=== PATIENT | male | born 1940 | race Caucasian/White ===

== ENCOUNTER 2024-09-06 13:42 | Emergency (ER) | payer OTHER, SELFPAY ==
[2024-09-06 14:23] VITALS: BP 104/60; PULSE 81; RESP 14; TEMP 36.1; O2SAT 100; BMI 25.8
--- NOTE | 2024-09-06 14:43 | PD.EDANKLE ---
Lower Extremity Injury RME/HPI General Chief Complaint: Ankle/Foot Injury Stated Complaint: BILAT FOOT PAIN X 5 DAYS Time Seen by Provider: 09/06/24 14:15 Arrival date/time: 09/06/24 13:42 84-year-old male reports with complaints of right foot pain x 4 to 5 days. Patient states that he was seen by another provider at some point prescribed medications but he is uncertain of what they are. Patient denies any injury to the foot and states that he is not certain of why the pain began he denies numbness or tingling decreased range of motion or weakness of the foot. Patient states it is simply hurts with walking. Limitations: no limitations Related Data Home Medications ?Medication ?Instructions ?Recorded ?Confirmed omeprazole 20 mg capsule,delayed 20 mg PO QDAY 09/07/19 05/30/24 release oxybutynin chloride 5 mg tablet 5 mg PO HS 07/14/23 05/30/24 tamsulosin 0.4 mg capsule 0.4 mg PO QDAY 07/14/23 05/30/24 vitamin B complex-vitamin C-folic 1 tab PO QDAY 07/14/23 05/31/24 acid 0.8 mg tablet (Kayley-Charley) amlodipine 5 mg tablet 5 mg PO QDAY 05/30/24 05/30/24 donepezil 10 mg tablet 10 mg PO HS 05/30/24 05/30/24 levocetirizine 5 mg tablet 5 mg PO QPM 05/30/24 05/30/24 Allergies Allergy/AdvReac Type Severity Reaction Status Date / Time clonidine Allergy Intermediate Rash Verified 09/06/24 13:51 Penicillins Allergy Intermediate Rash Verified 09/06/24 13:51 Sulfa (Sulfonamide Allergy Mild Itching Verified 09/06/24 13:51 Antibiotics) Review of Systems Constitutional Constitutional: Denies chills and Denies fever(s) Musculoskeletal Musculoskeletal: Reports arthralgias, Denies deformity, Denies joint swelling, Denies numbness and Denies tingling Integumentary/Breasts Skin/Breast: Reports sores and Denies skin swelling Neurologic Neurologic: Denies numbness and Denies tingling Past Medical History Past Medical History NEUROLOGIC: Positive Transient Ischemic Attacks (TIA), Dementia and Head Trauma; Negative Neurological Disorders or Seizures CARDIAC: Positive Cardiac Disorders, Coronary Artery Disease (s/p stent placement 2021), Hypercholesterolemia, Congestive Heart Failure (HFpEF 65-70%), Edema and Hypertension RESPIRATORY: Positive Asthma and Pneumonia; Negative Chronic Obstructive Pulmonary Disease (COPD), Tuberculosis or Sleep Apnea GASTROINTESTINAL: Positive Gastrointestinal Disorders, Esophageal Varices and Gastroesophageal Reflux Disease GENITOURINARY: Positive Benign Prostatic Hyperplasia; Negative Genitourinary Disorders or Renal Disease MUSCULOSKELETAL: Positive Musculoskeletal Disorders, Arthritis and Fractures ENT: Positive Cataracts, Deafness (hard of hearing) and Head Trauma ENDOCRINE: Negative Endocrine Disorders, Diabetes Mellitus Type 1 or Diabetes Mellitus Type 2 HEMATOLOGIC: Negative Blood Disorders OTHER HISTORY: Positive Falls, Chicken Pox, Mumps and Cancer; Negative Hospitalization, Autoimmune Disease, Shingles, Blood Transfusions, Blood Transfusion Reaction, Anesthesia Reactions, Chemotherapy, Radiation Therapy or MRSA Family History FAMILY HISTORY: Positive Family Cardiac Disorders and Family Surgery; Negative Family Psychiatric Problems, Family Respiratory Disorders, Family Gastrointestinal Problems, Family Cancer or Family Anesthesia Reaction Surgical History SURGICAL: Positive Cardiac Surgery, Cardiac Catheterization, Angiogram, Tonsillectomy, Abdominal Surgery and Joint Replacement Social History SMOKING STATUS: Never smoker SECOND HAND EXPOSURE: No SUBSTANCE USE: does not use ED Exam General Limitations: Present no limitations General appearance: Present alert and in no apparent distress Extremities Exam Extremities exam: Present normal inspection and full ROM Expanded Lower Extremity Exam Ankle exam: Present normal inspection and full ROM; Absent tenderness or swelling Foot/toe exam: Present full ROM and other (right foot with scattered abraisons on dorsal and plantar aspects, no d/c FROM, pulses/ reflexes 2+, sensory intact, unable to weight bear); Absent tenderness Neurological Exam Neurological exam: Present alert, oriented X3 and CN II-XII intact Psychiatric Psychiatric exam: Present normal affect and normal mood Skin Skin exam: Present warm, dry, intact and normal color Course Course Course Narrative: 84-year-old male reports with complaints of foot pain. Patient is a normal foot exam he is refusing the x-ray at this time differential diagnosis includes foot sprain foot fracture neuropathy. Patient is stable nontoxic-appearing with stable vital signs he will be discharged and referred to his primary care provider for further evaluation Quality Measures none Orders Category Date Time Status XR foot comp RT min 3V Stat Exams 09/06/24 14:43 Ordered Vital Signs Vital signs: Vital Signs Temperature 97.0 F 09/06/24 14:23 Pulse Rate 81 09/06/24 14:23 Respiratory Rate 14 09/06/24 14:23 Blood Pressure 104/60 09/06/24 14:23 Pulse Oximetry (%) 100 09/06/24 14:23 Oxygen Delivery Method Room Air 09/06/24 14:23 Extremity Injury, Lower Patient data External records reviewed:: None Clinical information provided by:: patient Social determinants that could affect healthcare access:: none Patient has the following chronic illnesses:: CHF, renal insufficiency How is presenting disease/condition affected by chronic disease/condition?: uneffected by Evaluation data The following diagnostics were reviewed and interpreted by me:: other (specify) (None) Lab and/or radiology exams considered but not ordered:: n/a Interpretation Summary: n/a Medications / Prescriptions Medications or Prescriptions considered but not ordered:: n/a Medication administrations:: n/a Consultations Consultation(s) initiated? (list below): No Diagnosis Most likely diagnosis given after review of the tests above:: right foot pain Admission Indicated Admission indicated?: not indicated Admission Request Was there a request for admission?: No Disposition Plan Disposition Plan: Discharge Discharge Attestation Discharge Attestation: The patient and all family members were given an opportunity to ask questions and understood the discharge instructions. Discharge instructions specifically effects, indications for sooner follow up or return to the emergency department, and the expected course of current diagnosis. Patient condition: Stable Discharge Plan Plan Patient Disposition: HOME (Self Care) Prescriptions/Referrals Prescriptions/Med Rec: No Action omeprazole 20 mg Capsule,Delayed Release(Dr/Ec) 20 mg PO QDAY donepezil 10 mg Tablet 10 mg PO HS amlodipine 5 mg Tablet 5 mg PO QDAY levocetirizine 5 mg Tablet 5 mg PO QPM tamsulosin 0.4 mg Capsule 0.4 mg PO QDAY Kayley-Charley 0.8 mg Tablet 1 tab PO QDAY oxybutynin chloride 5 mg Tablet 5 mg PO HS Referrals: No Primary/Family,Physician [Primary Care Provider] - In 1 week Problem List Clinical Impression: Acute pain of right foot Patient/Caregiver Discharge Instructions Discharge Activity: activity as tolerated Education Materials: ED Myalgias Additional Instructions: Follow-up with your primary care provider for further evaluation and treatment of your foot pain. you can take medications such as Tylenol for pain. Print Language: Luxembourgish Stand Alone Forms: [facility]stance Award Info., Patient Portal Info Letter Attestation MD Attestation The patient was seen by the midlevel practitioner. I, the co-signing physician, was present during the entire ER visit. While I did not physically examine the patient, I was available for consultation as needed.
--- NOTE | 2024-09-06 17:01 | PC.CC ---
Addendum entered by Brian Dick II 09/06/24 17:05: [employer] went looking for pt in ED lobby, pt not located. [employer] CC looked for pt in ED restrooms and outside of ED entrance, pt was not located. Original Note: [employer] CC engaged to help arrange transport for pt back to his residence at [address] [employer] CC initially attempted to arrange [employer] transport, with pts address not being found in system and out of catchment area. [employer] CC attempted to make contact with [facility] on 4 separate phone calls. [employer] CC unable to make contact or leave voice message.
== END 2024-09-06 15:37 | disposition home or self-care (01) ==
PROVIDERS: Emergency Provider Emergency Medicine
DX: M79.671 Pain in right foot (principal)
CPT/HCPCS: 99283

== ENCOUNTER 2024-09-13 11:04 | Inpatient (IN) | payer OTHER, MEDICARE, SELFPAY ==
[2024-09-13] VITALS (7 sets, daily range): BP systolic 96–166; BP diastolic 43–83; PULSE 61–101; RESP 12–21; TEMP 36.1–36.8; O2SAT 95–98; BMI 25.1
--- NOTE | 2024-09-13 11:18 | PC.NURSE ---
Pt was BIBA for generalized weakness. Pt states he is falling more often most recent fall being yesterday. Per EMS pt had a recent diagnosis of dementia/Alzheimer. Pt is a GCS 15, A&O x4. Arms appear discolored and have multiple skin tears.
--- NOTE | 2024-09-13 12:41 | EKG_ITS ---
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: : 1940 Requested By: Hugh Corona Order Number: [id number] Reading MD: Hugh Corona Measurements Intervals [place] Rate: 75 P: -56 [place]: 153 QRS: -69 QRSD: 166 T: 67 QT: 459 QTc: 516 Interpretive Statements ECTOPIC ATRIAL RHYTHM WITH OCCASIONAL SUPRAVENTRICULAR PREMATURE COMPLEXES POSSIBLE LEFT ATRIAL ENLARGEMENT [-0.1mV P WAVE IN V1/V2] RIGHT BUNDLE BRANCH BLOCK [120+ ms QRS DURATION, UPRIGHT V1, 40+ ms S IN I/aVL/V4/V5/V6] LEFT ANTERIOR FASCICULAR BLOCK [QRS AXIS <= -45, QR IN I, RS IN II] Compared to ECG 05/30/2024 20:44:45 Ectopic atrial rhythm now present Right bundle-branch block now present Left anterior fascicular block now present Sinus rhythm no longer present Left ventricular hypertrophy no longer present ST (T wave) deviation no longer present Myocardial infarct finding no longer present /store/S0/[id number]/ecg/[id number].pdf
--- NOTE | 2024-09-13 12:41 | XR_ITS ---
Examination: AP chest single view Technique one AP portable semiupright chest single view Exam date and time: September 13, 2024 1256 hours Comparison May 28, 2024 INDICATIONS: Shortness of breath after falling today. FINDINGS: Normal heart size. No pneumothorax Prominent osteopenia Clavicles and ribs appear intact IMPRESSION: No pneumothorax pulmonary contusion or hemothorax
--- NOTE | 2024-09-13 12:41 | XR_ITS ---
Examination: CT cervical spine without contrast 2-D sagittal reconstructions 2-D coronal reconstructions 3-D reconstructions. Exam date and time:September 13, 2024 1320 hours INDICATIONS: Patient fell yesterday with injury to the neck, neck pain CTDI:vol (mGy) 8.37 DLP: (mGycm) 200 Technique: Multiple 2 mm axial sections of the cervical spine have been obtained. The coronal and sagittal reconstructions have been obtained. 3-D reconstructions have been obtained. Low dose protocols were performed. One or more of the following dose reduction techniques were used; automated exposure control, adjustment of the mA and/or KV according to patient size, use of iterative reconstruction technique. Findings: Axial sections demonstrate intact base of the skull. C1 exhibit satisfactory relationship to the odontoid. No acute cervical vertebral body fracture seen. Alignment posterior spinous processes satisfactory. Impression: No acute cervical fracture. Very heavy carotid vascular calcification including left carotid artery stent, consider correlation with carotid Doppler sonography follow-up
--- NOTE | 2024-09-13 12:41 | XR_ITS ---
Examination: CT brain head without contrast. 2-D sagittal coronal reconstructions Date and time of exam:April 13, 2024 1320 hours INDICATIONS: Patient fell today with injury to the head, head pain, history CVA COMPARISON: November 22, 2023 CTDI: vol (mGy):53.0 DLP: (mGycm):1194 Technique: Multiple CT axial sections of the brain have been obtained, 5 mm slice thickness. Contrast has not been administered. 2-D sagittal, coronal reconstructions have been obtained Low dose protocols were performed. One or more of the following dose reduction techniques were used; automated exposure control, adjustment of the mA and/or KV according to patient size, use of iterative reconstruction technique. Findings: No significant ventricular enlargement. Intra-axial or extra-axial hemorrhage density is not seen. No mass effect or midline shift Basal cisterns are not remarkable. Prominent left maxillary sinusitis Small old infarct left basal ganglia Fourth ventricle is midline. Cranial vault intact. Impression: Negative for acute hemorrhage, mass effect or midline shift
--- NOTE | 2024-09-13 12:45 | PD.EDADULT ---
ED General RME/HPI General Chief complaint: Weakness Stated complaint: WEAKNESS Time Seen by Provider: 09/13/24 11:12 Arrival date/time: 09/13/24 11:04 CC: Generalized weakness x 4 to 5 days resulting in 2 falls yesterday. Patient denies headache shortness of breath or difficulty breathing. Patient states he has not been compliant with his medications secondary to his general weakness for several days. No other specific complaints. Related Data Home Medications ?Medication ?Instructions ?Recorded ?Confirmed omeprazole 20 mg capsule,delayed 20 mg PO QDAY 09/07/19 05/30/24 release oxybutynin chloride 5 mg tablet 5 mg PO HS 07/14/23 05/30/24 tamsulosin 0.4 mg capsule 0.4 mg PO QDAY 07/14/23 05/30/24 vitamin B complex-vitamin C-folic 1 tab PO QDAY 07/14/23 05/31/24 acid 0.8 mg tablet (Kayley-Charley) amlodipine 5 mg tablet 5 mg PO QDAY 05/30/24 05/30/24 donepezil 10 mg tablet 10 mg PO HS 05/30/24 05/30/24 levocetirizine 5 mg tablet 5 mg PO QPM 05/30/24 05/30/24 Allergies Allergy/AdvReac Type Severity Reaction Status Date / Time clonidine Allergy Intermediate Rash Verified 09/06/24 13:51 Penicillins Allergy Intermediate Rash Verified 09/06/24 13:51 Sulfa (Sulfonamide Allergy Mild Itching Verified 09/06/24 13:51 Antibiotics) Review of Systems Review of Systems Narrative Review of Systems: GEN: No fever, no chills, no weight loss EYES: No discharge, no visual changes, no pain HEENT: No ear pain, no congestion, no sore throat PULM: No shortness of breath, no cough, no congestion CV: No chest pain, no dyspnea on exertion, no palpitations GI: No nausea, no vomiting, no diarrhea, no pain, no constipation : No frequency, no urgency, no dysuria MUSC/SKEL: No joint pain, no back pain SKIN: No rash PSYCH: No hallucinations, no depression HEME/LYMPH: No easy bleeding or bruising tendencies NEURO: + weakness, no headache Past Medical History Past Medical History NEUROLOGIC: Positive Transient Ischemic Attacks (TIA), Dementia and Head Trauma; Negative Neurological Disorders or Seizures CARDIAC: Positive Cardiac Disorders, Coronary Artery Disease (s/p stent placement 2020), Hypercholesterolemia, Congestive Heart Failure (HFpEF 65-70%), Edema and Hypertension RESPIRATORY: Positive Asthma and Pneumonia; Negative Chronic Obstructive Pulmonary Disease (COPD), Tuberculosis or Sleep Apnea GASTROINTESTINAL: Positive Gastrointestinal Disorders, Esophageal Varices and Gastroesophageal Reflux Disease GENITOURINARY: Positive Benign Prostatic Hyperplasia; Negative Genitourinary Disorders or Renal Disease MUSCULOSKELETAL: Positive Musculoskeletal Disorders, Arthritis and Fractures ENT: Positive Cataracts, Deafness (hard of hearing) and Head Trauma ENDOCRINE: Negative Endocrine Disorders, Diabetes Mellitus Type 1 or Diabetes Mellitus Type 2 HEMATOLOGIC: Negative Blood Disorders OTHER HISTORY: Positive Falls, Chicken Pox, Mumps and Cancer; Negative Hospitalization, Autoimmune Disease, Shingles, Blood Transfusions, Blood Transfusion Reaction, Anesthesia Reactions, Chemotherapy, Radiation Therapy or MRSA Family History FAMILY HISTORY: Positive Family Cardiac Disorders and Family Surgery; Negative Family Psychiatric Problems, Family Respiratory Disorders, Family Gastrointestinal Problems, Family Cancer or Family Anesthesia Reaction Surgical History SURGICAL: Positive Cardiac Surgery, Cardiac Catheterization, Angiogram, Tonsillectomy, Abdominal Surgery and Joint Replacement Social History SMOKING STATUS: Never smoker SECOND HAND EXPOSURE: No SUBSTANCE USE: does not use ED Exam Narrative Physical exam: [General: Thin but not emaciated, appears not in any acute distress Head normocephalic, no step-offs hematomas abrasions ulcerations or depressions. HEENT: Eyes: Left pupil is pinpoint right pupil is 1 to 2 mm reflexive to light. All other subsystems of HEENT are within acceptable limits Neck is supple nontender Chest equal chest rise nontender to palpation Respiratory: Clear to auscultation no wheezes crackles or rubs CV: Rate rhythm is regular no murmurs rubs or clicks Abdomen is soft nontender no masses positive bowel sounds all 4 quadrants Back: No CVA tenderness no spinous process tenderness from cervical spine thoracic and lumbar spine Skin: 6 x 12 skin tear on the right lateral arm, very small partial-thickness abrasion to the top of the scalp. Intact no petechiae rash induration ulceration or crepitus Extremities: Moving all extremity against resistance cap refill less than 2 seconds neurosensory intact Neuro: Awake alert oriented x2, person and place, Glascow coma 15 no focal deficits] Course Course Course Narrative: Patient's case and laboratory results discussed with resident for Dr. Sinha attending who agrees to accept the patient for admission for worsening MORIAH weakness and recurrent falls. Quality Measures none Orders Category Date Time Status Bedside COVID-19 Antigen Test NOW Care 09/13/24 12:42 Active Bedside Influenza A&B Antigen Test NOW Care 09/13/24 12:42 Completed EKG (ED ONLY) *Do not use* NOW Care 09/13/24 12:41 Completed Miscellaneous Nursing Order NOW Care 09/13/24 14:21 Active Consult to Nephrology Stat Cons 09/13/24 14:[address] cervical spine wo con Stat Exams 09/13/24 12:[address] head/brain wo con Stat Exams 09/13/24 12:41 Completed EKG (ED Only) Stat Exams 09/13/24 12:41 Draft US renal BI Stat Exams 09/13/24 14:11 Completed XR chest 1V Stat Exams 09/13/24 12:41 Completed B-Type Natriuretic Peptide Stat Lab 09/13/24 12:55 Completed CBC Stat Lab 09/13/24 12:55 Completed Comprehensive Metabolic Panel Stat Lab 09/13/24 12:55 Completed Creatine Kinase Routine Lab 09/13/24 15:02 Completed Drug Screen,Urine Stat Lab 09/13/24 12:41 Ordered LDH (Lactate Dehydrogenase) Stat Lab 09/13/24 12:55 Completed Lactate (Lactic Acid) Routine Lab 09/13/24 15:02 Completed Magnesium Stat Lab 09/13/24 12:55 Completed Partial Thromboplastin Time Stat Lab 09/13/24 12:55 Completed Phosphorous Routine Lab 09/13/24 15:02 Completed Prothrombin Time with INR Stat Lab 09/13/24 12:55 Completed Troponin I Stat Lab 09/13/24 12:55 Completed Urinalysis Stat Lab 09/13/24 12:41 Ordered Pantoprazole [Protonix] Med 09/13/24 13:12 Discontinued 20 mg PO X1 ONE Sodium Chloride 0.9% 1000 ml [Ns] 1,000 ml Med 09/13/24 14:13 Discontinued IV 85 mls/hr Sodium Chloride 0.9% 1000 ml [Ns] 1,000 ml Med 09/13/24 14:12 Discontinued IV 999 mls/hr Tet,Diphth,Pertuss(Acell)-Tdap [Boostrix Vacc] Med 09/13/24 14:31 Discontinued 0.5 ml IMI .ONCE ONE Vital Signs Vital signs: Vital Signs Temperature 97.6 F 09/13/24 11:21 Pulse Rate 85 09/13/24 11:21 Respiratory Rate 18 09/13/24 11:21 Blood Pressure 142/73 H 09/13/24 11:21 Pulse Oximetry (%) 95 09/13/24 11:21 Oxygen Delivery Method Room Air 09/13/24 11:21 [facility] Patient data External records reviewed:: [facility] previous records and EMS form Clinical information provided by:: patient and EMS Social determinants that could affect healthcare access:: none Patient has the following chronic illnesses:: Past medical history of hypertension CKD stage IV orthopnea How is presenting disease/condition affected by chronic disease/condition?: uneffected by Evaluation data The following diagnostics were reviewed and interpreted by me:: lab results, radiology exam(s) and EKG tracing(s) Lab and/or radiology exams considered but not ordered:: Thank you EKG performed at 1329 shows an ectopic rhythm, right bundle branch block. The ventricular rate of 75 NC interval 153 QRS of 166 QTc of 488 CBC shows no significant leukocytosis stable anemia no thrombocytopenia CMP shows electrolyte imbalances with significant renal impairment BUN of [address] head and C-spine as interpreted by me read by radiology as negative for any acute finding. Interpretation Summary: Patient has significant worsening of his BUN and creatinine, was discussed with Dr. Huerta who is consulted on this patient with his last admission in May 2024 he agrees to consult on the patient and wants him admitted fluid hydration, and renal ultrasound. Medications Medications considered but not ordered:: None Medication administrations:: Medication Administration History Acetaminophen (Acetaminophen 325 Mg Tablet) 650 mg PO Q6H PRN PRN Reason: Fever >100.2 or pain Stop: 10/13/24 15:38 Enoxaparin Sodium (Enoxaparin Sod Inj 30 Mg/0.3 Ml Syringe) 30 mg SC QDAY DOMENICO; Protocol Stop: 09/28/24 08:59 Folic Acid (Folic Acid 1 Mg Tablet) 1 mg PO QDAY DOMENICO Stop: 10/14/24 08:59 Hydralazine HCl (Hydralazine Inj 20 Mg/Ml Vial) 10 mg IV Q2HR PRN PRN Reason: Hypertension Stop: 10/13/24 17:59 Dextrose/Sodium Chloride (D5-Ns) 1,000 mls @ 120 mls/hr IV .[id number] [facility] Stop: 09/14/24 17:14 Last Admin: 09/13/24 17:09 Dose: 120 mls/hr Documented By: MS Labetalol HCl (Labetalol Inj 5 Mg/Ml Vial 20 Ml) 10 mg IVP Q4HR PRN PRN Reason: SEE COMMENTS Stop: 10/13/24 17:59 Lorazepam (Lorazepam 2 Mg/Ml Vial) 1 mg IVP Q2H PRN PRN Reason: seizure Stop: 09/18/24 15:47 Nifedipine (Nifedipine 10 Mg Capsule) 10 mg PO TID [facility] Stop: 10/13/24 17:29 Last Admin: 09/13/24 17:54 Dose: 10 mg Documented By: MS Ondansetron HCl (Ondansetron Inj 2 Mg/Ml Inj 2 Ml) 4 mg IV Q6H PRN; Protocol PRN Reason: NAUSEA OR VOMITING Stop: 10/13/24 15:38 Pantoprazole Sodium (Pantoprazole Inj 40 Mg Vial) 40 mg IVP QDAY [facility] Stop: 10/14/24 08:59 Quetiapine Fumarate (Quetiapine Fumarate 25 Mg Tablet) 12.5 mg PO HS PRN PRN Reason: AGITATION Stop: 10/13/24 20:59 Thiamine HCl (Thiamine 100 Mg Tablet) 100 mg PO DAILY [facility] Stop: 10/14/24 08:59 Discontinued Medications Diphtheria/Tetanus/Acell Pertussis (Diphth,Pertuss(Acell),Tet Vac 0.5 Ml Vial) 0.5 ml IMi .ONCE ONE Stop: 09/13/24 14:32 Last Admin: 09/13/24 17:02 Dose: 0.5 ml Documented By: MS Folic Acid (Folic Acid Inj 1 Mg/0.2 Ml) 1 mg IVP X1 ONE Stop: 09/13/24 15:54 Last Admin: 09/13/24 17:04 Dose: 1 mg Documented By: MS Sodium Chloride (Ns) 1,000 mls @ 999 mls/hr IV .Q1H1M ONE Stop: 09/13/24 15:12 Last Admin: 09/13/24 17:01 Dose: 999 mls/hr Documented By: MS Sodium Chloride (Ns) 1,000 mls @ 85 mls/hr IV .[id number] [facility] Stop: 10/13/24 14:12 Last Admin: 09/13/24 17:22 Dose: Not Given Documented By: Non-Admin Reason: Cancelled by Provider Magnesium Sulfate (Magnesium Sulfate Ivpb) 4 gm in 50 mls @ 12.5 mls/hr IV X1 ONE Stop: 09/13/24 19:48 Last Admin: 09/13/24 17:54 Dose: 12.5 mls/hr Documented By: MS Thiamine HCl 100 mg/ Sodium (Chloride) 101 mls @ 202 mls/hr IV X1 ONE Stop: 09/13/24 16:24 Last Admin: 09/13/24 17:07 Dose: 202 mls/hr Documented By: MS Sodium Chloride (Ns) 1,000 mls @ 125 mls/hr IV .Q8H DOMENICO Stop: 09/14/24 16:00 Last Admin: 09/13/24 17:22 Dose: Not Given Documented By: Non-Admin Reason: Cancelled by Provider Pantoprazole Sodium (Pantoprazole 20 Mg Tablet) 20 mg PO X1 ONE Stop: 09/13/24 13:13 Last Admin: 09/13/24 13:43 Dose: 20 mg Documented By: Potassium Chloride (Potassium Chloride 20 Meq Tabcr) 40 meq PO X1 ONE Stop: 09/13/24 15:53 Last Admin: 09/13/24 17:02 Dose: 40 meq Documented By: None Consultations Consultation(s) initiated? (list below): No Diagnosis Differential Diagnosis ED Complaint MDM: CKD stage IV to acute renal failure dehydration Most likely diagnosis given after review of the tests above:: Dehydration MORIAH Admission Indicated Admission indicated?: indicated Explain why admission is indicated or not indicated:: Further medical management Admission Request Was there a request for admission?: No Disposition Plan Disposition Plan: Admit Medical Decision Making Differential Diagnosis Differential Diagnosis: CKD stage IV to acute renal failure dehydration Lab Data 09/13/24 12:55 09/13/24 12:55 Labs: Lab Results 09/13/24 09/13/24 Range/Units 12:55 15:02 WBC 11.0 H (3.8-10.6) Thou/mm3 RBC 3.54 L (4.50-5.90) Miln/mm3 Hgb 11.7 L (13.5-16.0) g/dL Hct 32.9 L (41.0-53.0) % MCV 93 (80-100) fL MCH 33.1 (25.0-35.0) pg MCHC 35.6 (31.0-37.0) g/dl RDW Std Deviation 43.9 (35.1-43.9) fL Plt Count 352 (140-440) Thou/mm3 Neut % (Auto) 78 (37-80) % Lymph % (Auto) 9 L (10-50) % Har[place]on % (Auto) 12 (0-12) % Eos % (Auto) 0 (0-10) % Baso % (Auto) 0 (0-2.5) % Neut # (Auto) 8.6 H (1.8-7.7) Thou/mm3 Lymph # (Auto) 1.0 (1.0-4.8) Thou/mm3 [place]on # (Auto) 1.3 H (0.0-0.8) Thou/mm3 Eos # (Auto) 0.0 (0.0-0.5) Thou/mm3 Baso # (Auto) 0.0 (0.0-0.2) Thou/mm3 Immature Gran # (Auto) 0.05 H (0.00-0.00) Thou/mm3 Absolute Nucleated RBC 0.00 (0.00-0.00) Thou/mm3 Immature Gran % 1 H (0-0) % Nucleated RBC % 0 (0) /100 WBC PT 11.8 (9.0-12.2) Seconds INR 1.1 (0.9-1.3) APTT 27.2 (22.0-36.0) Seconds Sodium 129 L (136-145) mMol/L Potassium 3.3 L (3.4-5.1) mMol/L Chloride 88 L (98-107) mMol/L Carbon Dioxide 21.0 (20.0-31.0) mMol/L Anion Gap 20 H (7-16) BUN 90 H (9-23) mg/dL Creatinine 6.4 H* (0.6-1.3) mg/dL Estim Creat Clear Calc 9.2 L (>60) mL/min eGFR 8 L* (60 - ) See Note BUN/Creatinine Ratio 14 (12-20) Ratio Glucose 101 (74-106) mg/dL Calculated Osmolality 286 (275-295) Lactic Acid 1.4 (0.4-2.0) mMol/L Calcium 9.4 (8.3-10.6) mg/dL Corrected Calcium 9.4 (8.5-10.1) mg/dL Phosphorus 6.6 H (2.4-5.1) mg/dL Magnesium 1.4 L (1.6-2.6) mg/dL Total Bilirubin 0.5 (0.3-1.2) mg/dL AST 22 (0-34) U/L ALT 10 (10-49) U/L Alkaline Phosphatase 118 H (46-116) U/L Lactate Dehydrogenase 132 (120-246) U/L Total Creatine Kinase 32 L (34-171) U/L Troponin I 0.025 (0.0-0.045) ng/mL B-Natriuretic Peptide 114 H (0-100) pg/mL Total Protein 6.9 (5.7-8.2) gm/dL Albumin 4.4 (3.4-4.8) gm/dL Globulin 2.5 (2.3-3.5) gm/dL Albumin/Globulin Ratio 1.8 (1.2-2.2) Discharge Plan Plan Patient Disposition: Admit Acute Care w/in Hospital Patient condition on transfer: Stable Problem List Clinical Impression: Renal failure, Weakness, Recurrent falls, Skin tear of elbow without complication PA/MARKETING DEVELOPMENT REPRESENTATIVE Supervising Physician PA/MARKETING DEVELOPMENT REPRESENTATIVE Supervising Physician: Hugh Page ENP
[2024-09-13 13:04] LABS: Basophils % (Auto) 0 % (0-2.5); Eosinophils % (Auto) 0 % (0-10); Hematocrit 32.9 % (41.0-53.0); Hemoglobin 11.7 g/dL (13.5-16.0); Immature Granulocytes % (Auto) 1 % (0-0); Immature Granulocytes Auto 0.05 Thou/mm3 (0.00-0.00); Lymphocytes % (Auto) 9 % (10-50); Mean Corpuscular HGB Conc 35.6 g/dl (31.0-37.0); Mean Corpuscular Hemoglobin 33.1 pg (25.0-35.0); Mean Corpuscular Volume 93 fL (80-100); Monocytes # (Auto) 1.3 Thou/mm3 (0.0-0.8); Monocytes % (Auto) 12 % (0-12); Neutrophils # (Auto) 8.6 Thou/mm3 (1.8-7.7); Neutrophils % (Auto) 78 % (37-80); Nucleated Red Blood Cell % 0 /100 WBC (0); Platelet Count 352 Thou/mm3 (140-440); RDW Standard Deviation 43.9 fL (35.1-43.9); Red Blood Count 3.54 Miln/mm3 (4.50-5.90)
[2024-09-13 13:20] LABS: Alanine Aminotransferase 10 U/L (10-49); Albumin, Serum 4.4 gm/dL (3.4-4.8); Albumin/Globulin Ratio 1.8 (1.2-2.2); Alkaline Phosphatase 118 U/L (46-116); Anion Gap 20 (7-16); Aspartate Amino Transferase 22 U/L (0-34); BUN/Creatinine Ratio 14 Ratio (12-20); Bilirubin,Total 0.5 mg/dL (0.3-1.2); Blood Urea Nitrogen 90 mg/dL (9-23); Calcium 9.4 mg/dL (8.3-10.6); Calcium (Corrected) 9.4 mg/dL (8.5-10.1); Chloride 88 mMol/L (98-107); Creatinine (Component) 6.4 mg/dL (0.6-1.3); Estimated Creatinine Clearance 9.2 mL/min (>60); Globulin 2.5 gm/dL (2.3-3.5); Glucose 101 mg/dL (74-106); INR 1.1 (0.9-1.3); LDH (Lactate Dehydrogenase) 132 U/L (120-246); Magnesium 1.4 mg/dL (1.6-2.6); Osmolality,Calculated 286 (275-295); Partial Thromboplastin Time 27.2 Seconds (22.0-36.0); Potassium 3.3 mMol/L (3.4-5.1); Prothrombin Time 11.8 Seconds (9.0-12.2); Sodium 129 mMol/L (136-145); Total Protein 6.9 gm/dL (5.7-8.2); Troponin I 0.025 ng/mL (0.0-0.045); eGFR 8 See Note
[2024-09-13] MEDS: PANTOPRAZOLE 20 MG TABLET PO (13:43)
[2024-09-13 13:47] LABS: B-Type Natriuretic Peptide 114 pg/mL (0-100)
--- NOTE | 2024-09-13 14:11 | XR_ITS ---
Examination: Retroperitoneal ultrasound, complete Technique: Multiple high resolution grayscale images of the retroperitoneum obtained, including kidneys and bladder. Exam date and time:September 13, 2024 1537 hrs. Indications: Worsening chronic kidney disease on laboratory examination this week Findings: Right kidney 8.3 x 5.7 x 5.3 cm cortex 1.6 cm Upper pole 10 mm cyst Left kidney 8.5 x 5.2 x 5.2 cm cortex 1.3 cm Midpole 16 mm cyst upper pole 13 mm cyst Moderate renal parenchymal scar formation No bladder mass or bladder calculi Bladder prevoid volume 139 cc unable to void Prostate 3.9 x 3.6 x 4.7 cm no prostate nodules Impression: Small kidneys with bilateral renal cortical thinning Moderate bilateral renal parenchymal scar formation No hydronephrosis
[2024-09-13 15:10] LABS: Lactate (Lactic Acid) 1.4 mMol/L (0.4-2.0)
[2024-09-13 15:32] LABS: Creatine Kinase 32 U/L (34-171); Phosphorous 6.6 mg/dL (2.4-5.1)
--- NOTE | 2024-09-13 15:37 | ESCONSULT_ITS ---
HPI Data of Consult Patient: known to practice within the last 3 years Primary Care Provider: Jessy Griffiths MD Consult Narrative Reason for consult: MORIAH on CKD History of present illness: 84-year-old male with past medical history of CAD (s/p 02/23 stent placement), HFpEF (EF 65-70%), CKD stage IV, hypertension, esophageal varices, BPH, presbycusis who presented to the emergency department after a fall. Patient has been complaining of weakness. Stated that he has been drinking of water in the last few days. Denies any chest pain or shortness of breath. cc:: cc: Review of Systems Review of Systems Systems Reviewed: All systems reviewed, normal except as documented Exam Vital Signs Temp Pulse Resp BP Pulse Ox O2 Del Method 98.2 F 101 H 20 142/79 H 97 Room Air 09/13/24 14:02 09/13/24 14:02 09/13/24 14:02 09/13/24 14:02 09/13/24 14:02 09/13/24 14:02 Narrative Exam Physical Exam: GENERAL: Well-appearing, appears stated age, hard of hearing HEENT: NC/AT. Moist mucosa. PERRLA/EOMI. Anicteric sclera. No cervical lymphadenopathy CARDIO: Heart RRR, no obvious murmurs, no JVD. PULM: Lungs CTA B/L except reduced breath sounds on right lower lobe. No shortness of breath. Patient dry coughs intermittently GI: Abdomen soft, NT/ND, +BS no organomegaly, no guarding or rebound tenderness SKIN/MSK/EXT: Dry and flaky, scaly skin. There seems to be a contusion to his right arm above the elbow likely secondary to fall, +Pedal pulses present B/L. 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 Results Labs 09/17/24 05:05 09/17/24 05:05 Labs: Short CBC 09/13/24 Range/Units 12:55 WBC 11.0 H (3.8-10.6) Thou/mm3 Hgb 11.7 L (13.5-16.0) g/dL Hct 32.9 L (41.0-53.0) % Plt Count 352 (140-440) Thou/mm3 BMP 09/13/24 12:55 Sodium 129 L Potassium 3.3 L Chloride 88 L Carbon Dioxide 21.0 BUN 90 H Creatinine 6.4 H* Glucose 101 Calcium 9.4 Cardiac Enzymes 09/13/24 09/13/24 Range/Units 12:55 15:02 Total Creatine Kinase 32 L (34-171) U/L Troponin I 0.025 (0.0-0.045) ng/mL Liver Function 09/13/24 Range/Units 12:55 Total Bilirubin 0.5 (0.3-1.2) mg/dL AST 22 (0-34) U/L ALT 10 (10-49) U/L Alkaline Phosphatase 118 H (46-116) U/L Albumin 4.4 (3.4-4.8) gm/dL Quality Measures Quality Measures none Advance care planning discussed with:: other Medications Home Medications and Allergies Home Medications ?Medication ?Instructions ?Recorded ?Confirmed ?Type omeprazole 20 mg capsule,delayed 20 mg PO QDAY 09/07/19 05/30/24 History release oxybutynin chloride 5 mg tablet 5 mg PO HS 07/14/23 05/30/24 History tamsulosin 0.4 mg capsule 0.4 mg PO QDAY 07/14/23 05/30/24 History vitamin B complex-vitamin C-folic 1 tab PO QDAY 07/14/23 05/31/24 History acid 0.8 mg tablet (Kayley-Charley) amlodipine 5 mg tablet 5 mg PO QDAY 05/30/24 05/30/24 History donepezil 10 mg tablet 10 mg PO HS 05/30/24 05/30/24 History levocetirizine 5 mg tablet 5 mg PO QPM 05/30/24 05/30/24 History Allergies Allergy/AdvReac Type Severity Reaction Status Date / Time clonidine Allergy Intermediate Rash Verified 09/06/24 13:51 Penicillins Allergy Intermediate Rash Verified 09/06/24 13:51 Sulfa (Sulfonamide Allergy Mild Itching Verified 09/06/24 13:51 Antibiotics) Visit Medications Sodium Chloride (Ns) 1,000 mls @ 85 mls/hr IV .[id number] DOMENICO Stop: 10/13/24 14:12 Discontinued Medications Diphtheria/Tetanus/Acell Pertussis (Diphth,Pertuss(Acell),Tet Vac 0.5 Ml Vial) 0.5 ml IMi .ONCE ONE Stop: 09/13/24 14:32 Sodium Chloride (Ns) 1,000 mls @ 999 mls/hr IV .Q1H1M ONE Stop: 09/13/24 15:12 Pantoprazole Sodium (Pantoprazole 20 Mg Tablet) 20 mg PO X1 ONE Stop: 09/13/24 13:13 Last Admin: 09/13/24 13:43 Dose: 20 mg Assessment & Plan Plan Assessment: #MORIAH on CKD #Uremia #High anion gap #Hypokalemia #Hypomagnesemia #Hyperphosphatemia Baseline creatinine 2.0-2.5, baseline GFR 14-18 Labs on admission showed a creatinine of 6.4 with a BUN of 90 and a GFR of 8 Etiology of the patient's MORIAH likely prerenal due to decreased oral intake Notable elevated anion gap likely secondary to elevated BUN. No recent IV contrast imaging, intake of NSAIDs Plan: -IV hydration -Monitor urine output -Avoid nephrotoxins -Renally dose medications -Recommend Stephens to monitor urine output -Urine electrolytes, ordered -Renal ultrasound - Patient's care was discussed with my attending physician, Dr. Jordy Miller MD Internal Medicine PGY-3 Attending Provider Attestation/Addendum Agree with assessment and plan and findings. Seen and examined. labs reviewed. Plan discussed with resident. Herminio Spence MD
--- NOTE | 2024-09-13 15:42 | ECHO_ITS ---
Transthoracic Echo Report Ht (in): 71 Wt (lb): 180 Exam Location: [facility] Status: Emergency Mixing Engineer: Taylor Anna Indications: Procedure Performed: BP: 93 / 45 HR: 73 Rhythm: Sinus Technical Quality: Fair MEASUREMENTS (Male / Female) Normal Values 2D ECHO LV Diastolic Diameter PLAX 5.8 cm 4.2 - 5.9 / 3.9 - 5.3 cm LV Systolic Diameter PLAX 4.4 cm IVS Diastolic Thickness 1.0 cm 0.6 - 1.0 / 0.6 - 0.9 cm LVPW Diastolic Thickness 1.1 cm 0.6 - 1.0 / 0.6 - 0.9 cm LV Relative Wall Thickness 0.4 LVOT Diameter 2.1 cm LA Volume Index 35.4 cm?/m? 16 - 28 cm?/m? Ascending Aorta Diameter 3.6 cm M-MODE Aortic Root Diameter MM 3.4 cm LA Systolic Diameter MM 3.1 cm LA Ao Ratio MM 0.9 AV Cusp Separation MM 2.3 cm DOPPLER AV Peak Velocity 114.0 cm/s AV Peak Gradient 5.2 mmHg AV Mean Gradient 3.0 mmHg AV Velocity Time Integral 24.9 cm LVOT Peak Velocity 109.0 cm/s LVOT Peak Gradient 4.8 mmHg LVOT Velocity Time Integral 21.9 cm LVOT Cardiac Index 2727.5 cm?/min?m? AV Area Cont Eq vti 3.0 cm? AV Area Cont Eq pk 3.3 cm? MV Peak Velocity 118.0 cm/s MV Peak Gradient 5.6 mmHg MV Mean Velocity 73.4 cm/s MV Mean Gradient 2.5 mmHg MV Area PHT 2.7 cm? MR Peak Velocity 272.0 cm/s MR Peak Gradient 29.6 mmHg Mitral E Point Velocity 87.8 cm/s Mitral A Point Velocity 125.0 cm/s Mitral E to A Ratio 0.7 LV E' Lateral Velocity 7.6 cm/s Mitral E to LV E' Lateral Ratio 11.5 LV E' Septal Velocity 5.2 cm/s Mitral E to LV E' Septal Ratio 16.8 TR Peak Velocity 194.5 cm/s TR Peak Gradient 15.1 mmHg FINDINGS Left Ventricle Normal left ventricular size,systolic function with no obvious regional wall motion abnormalities. Mild LVH. The ejection fraction is visually estimated at 50-55%. Right Ventricle The right ventricle is normal in size and systolic function. The estimated right ventricular systoli c pressure, 28 mmHg. RAP 5. Left Atrium The left atrium is normal by two-dimensional, color flow and Doppler imaging with no structural abnormalities, no thrombus formation present. Right Atrium The right atrium is normal by two-dimensional imaging, color flow and Doppler imaging with no struct ural abnormalities, no thrombus formation present. Atrial Septum The interatrial septum appears normal with no evidence of a shunt. Aorta The aorta is normal by two-dimensional, color flow and Doppler interrogation. Mitral Valve The mitral valve is mildly MAC. There is mild mitral valve regurgitation. Aortic Valve The aortic valve is trileaflet. Mild sclerosis without stenosis. There is trace aortic valve regurg itation. Tricuspid Valve The tricuspid valve is normal by two-dimensional, color flow and Doppler interrogation. There is mil d tricuspid valve regurgitation. Pulmonic Valve There is no significant pulmonic valve regurgitation. Vessels The pulmonary artery appears normal. The inferior vena cava pulmonary and hepatic veins appear shashank l. Pericardium The pericardium is normal by two-dimensional imaging. There is no significant pericardial effusion. CONCLUSIONS Normal LV size and function. Mild LVH. Estimated EF 50-55% Normal RV size and function. Mild MAC. Mild MR, TR Mild AV sclerosis without stenosis. Trace aI. Luz Cortez (Electronically Signed) Final Date: 14 September 2024 11:06
--- NOTE | 2024-09-13 16:52 | ESHP_ITS ---
<Statement entered by Victorino Hay MD - 09/14/24 18:45> Patient was seen and examined at bedside. I agree on the assessment and plan in this note. - Patient's plan and care discussed with my attending, Dr. 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 Patient denies losing consciousness during the falls. Patient states that he just felt weak while he was walking and fell down. Denies standing up and following immediately/orthostatic symptoms. Denies shortness of breath, headache, chest pain, nausea vomiting, abdominal pain. Patient reports that he feels safe at home and taking care of himself. He reports decreased appetite the last few days. When asked if he has any food at home he states that he needs to go grocery shopping soon. We were given phone number of friend [phone]. In the ED patient's vitals are 142/79, heart rate 101, respiratory rate 20, temperature 98.2, saturating 97% on room air. Labs were significant for hyponatremia at 129 potassium 3.3 glucose 101 creatinine 6.4 and BUN 90 magnesium 1.4 white count 11 hemoglobin 11.7 hematocrit 32.9 platelets 352. BNP 114 troponin 0.025. Patient was given 1 L NS and put on maintenance IV fluid 85 mL an hour. Imaging showed no acute intracranial pathology on head and cervical CT except heavy carotid vascular calcification. EKG showed ectopic atrial rhythm with left anterior fascicular block. Allergies clonidine, penicillin, sulfa, reaction to all these this rash Meds: Temazepam: Amlodipine: Donepezil, tamsulosin PSH: Hernia repair PMH: As stated above Social history: Patient lives alone, patient reports drinking 2-3 beers a night and a glass of wine, denies other drug use, reports occasional cigar use Family history: Denies family history of kidney issues Review of systems Constitutional: Denies fever or chills HEENT: Denies cough or runny nose CV: Denies chest pain or palpitations Pulm: Denies shortness of breath GI: Reports decreased appetite, denies nausea or vomiting : Denies incontinence Neuro: Denies headaches, reports weakness Skin: Reports skin breakdown Exam Vital Signs Temp Pulse Resp BP Pulse Ox O2 Del Method 97.7 F 82 21 H 166/83 H 98 Room Air 09/13/24 16:46 09/13/24 16:46 09/13/24 16:46 09/13/24 16:46 09/13/24 16:46 09/13/24 16:46 Narrative Exam General: Cachectic, in no acute distress. Skin: Multiple abrasions of upper and lower extremities HEENT: Normocephalic, atraumatic, conjunctiva clear, sclera non-icteric, EOM intact, PERRL, Heart: Regular rate and rhythm, no murmur or gallop Lungs: Clear to auscultation and percussion Abdomen: Soft, nontender, nondistended Extremities: No amputations or deformities, cyanosis, edema, peripheral pulses intact Neurologic: CN 2-12 are grossly intact, moves all extremities spontaneously, negative finger-nose test Psychiatric: Cooperative, normal mood and affect. Results: Labs 09/14/24 05:46 09/14/24 05:46 Labs: Short CBC 09/13/24 Range/Units 12:55 WBC 11.0 H (3.8-10.6) Thou/mm3 Hgb 11.7 L (13.5-16.0) g/dL Hct 32.9 L (41.0-53.0) % Plt Count 352 (140-440) Thou/mm3 BMP 09/13/24 12:55 Sodium 129 L Potassium 3.3 L Chloride 88 L Carbon Dioxide 21.0 BUN 90 H Creatinine 6.4 H* Glucose 101 Calcium 9.4 Cardiac Enzymes 09/13/24 09/13/24 Range/Units 12:55 15:02 Total Creatine Kinase 32 L (34-171) U/L Troponin I 0.025 (0.0-0.045) ng/mL Liver Function 09/13/24 Range/Units 12:55 Total Bilirubin 0.5 (0.3-1.2) mg/dL AST 22 (0-34) U/L ALT 10 (10-49) U/L Alkaline Phosphatase 118 H (46-116) U/L Albumin 4.4 (3.4-4.8) gm/dL Quality Measures Quality Measures VTE prophylaxis Advance care planning discussed with:: patient Medications Home Medications and Allergies Home Medications ?Medication ?Instructions ?Recorded ?Confirmed ?Type omeprazole 20 mg capsule,delayed 20 mg PO QDAY 09/07/19 05/30/24 History release oxybutynin chloride 5 mg tablet 5 mg PO HS 07/14/23 05/30/24 History tamsulosin 0.4 mg capsule 0.4 mg PO QDAY 07/14/23 05/30/24 History vitamin B complex-vitamin C-folic 1 tab PO QDAY 07/14/23 05/31/24 History acid 0.8 mg tablet (Kayley-Charley) amlodipine 5 mg tablet 5 mg PO QDAY 05/30/24 05/30/24 History donepezil 10 mg tablet 10 mg PO HS 05/30/24 05/30/24 History levocetirizine 5 mg tablet 5 mg PO QPM 05/30/24 05/30/24 History Allergies Allergy/AdvReac Type Severity Reaction Status Date / Time clonidine Allergy Intermediate Rash Verified 09/06/24 13:51 Penicillins Allergy Intermediate Rash Verified 09/06/24 13:51 Sulfa (Sulfonamide Allergy Mild Itching Verified 09/06/24 13:51 Antibiotics) Visit Medications Acetaminophen (Acetaminophen 325 Mg Tablet) 650 mg PO Q6H PRN PRN Reason: Fever >100.2 or pain Stop: 10/13/24 15:38 Enoxaparin Sodium (Enoxaparin Sod Inj 30 Mg/0.3 Ml Syringe) 30 mg SC QDAY [facility]; Protocol Stop: 09/28/24 08:59 Folic Acid (Folic Acid 1 Mg Tablet) 1 mg PO QDAY [facility] Stop: 10/14/24 08:59 Magnesium Sulfate (Magnesium Sulfate Ivpb) 4 gm in 50 mls @ 12.5 mls/hr IV X1 ONE Stop: 09/13/24 19:48 Dextrose/Sodium Chloride (D5-Ns) 1,000 mls @ 120 mls/hr IV .[id number] [facility] Stop: 09/14/24 17:14 Lorazepam (Lorazepam 2 Mg/Ml Vial) 1 mg IVP Q2H PRN PRN Reason: seizure Stop: 09/18/24 15:47 Ondansetron HCl (Ondansetron Inj 2 Mg/Ml Inj 2 Ml) 4 mg IV Q6H PRN; Protocol PRN Reason: NAUSEA OR VOMITING Stop: 10/13/24 15:38 Pantoprazole Sodium (Pantoprazole Inj 40 Mg Vial) 40 mg IVP QDAY [facility] Stop: 10/14/24 08:59 Quetiapine Fumarate (Quetiapine Fumarate 25 Mg Tablet) 12.5 mg PO HS PRN PRN Reason: AGITATION Stop: 10/13/24 20:59 Thiamine HCl (Thiamine 100 Mg Tablet) 100 mg PO DAILY DOMENICO Stop: 10/14/24 08:59 Discontinued Medications Diphtheria/Tetanus/Acell Pertussis (Diphth,Pertuss(Acell),Tet Vac 0.5 Ml Vial) 0.5 ml IMi .ONCE ONE Stop: 09/13/24 14:32 Folic Acid (Folic Acid Inj 1 Mg/0.2 Ml) 1 mg IVP X1 ONE Stop: 09/13/24 15:54 Sodium Chloride (Ns) 1,000 mls @ 999 mls/hr IV .Q1H1M ONE Stop: 09/13/24 15:12 Sodium Chloride (Ns) 1,000 mls @ 85 mls/hr IV .[id number] DOMENICO Stop: 10/13/24 14:12 Thiamine HCl 100 mg/ Sodium (Chloride) 101 mls @ 202 mls/hr IV X1 ONE Stop: 09/13/24 16:24 Sodium Chloride (Ns) 1,000 mls @ 125 mls/hr IV .Q8H DOMEN[facility] Stop: 09/14/24 16:00 Pantoprazole Sodium (Pantoprazole 20 Mg Tablet) 20 mg PO X1 ONE Stop: 09/13/24 13:13 Last Admin: 09/13/24 13:43 Dose: 20 mg Potassium Chloride (Potassium Chloride 20 Meq Tabcr) 40 meq PO X1 ONE Stop: 09/13/24 15:53 Assessment & Plan Plan This is an 84-year-old male with past medical history of hypertension HFpEF CKD stage IV who presents with 4 to 5 days of weakness and [address] White, inside sales consultant was consulted and recommended admit for weakness and acute renal failure. # Acute renal failure #CKD stage IV Creatinine 6.4, previous baseline 3.9 Dr. Spence(Multiple Resaw Operator) -Avoid Nephrotoxic drugs -Continue to monitor, possible dialysis -IV hydration -Monitor urine output -Renally dose medications -Recommend Stephens to monitor urine output -Renal ultrasound # Generalized Weakness #Polypharmacy #Acute Dehydration Reports 4 to 5 days of weakness, patient is on temazepam, other possibly disorienting medications Patient lives by himself and paramedics state that house was extremely disheveled, concern for unsafe living conditions/inability to take care of himself -Med rec -Echo pending -IV fluid 120 mL an hour maintenance -Dietitian referral -CLOTH CUTTING INSPECTOR referral -PT referral -Social referral -TSH, syphilis -Seizure, aspiration precautions #Electrolyte abnormalities #Hyponatremia #Hypomagnesemia -Replete electrolytes -IVF hydration #Chronic normocytic anemia Hemoglobin 11.7, improved from previous labs earlier this year -Monitor CBC #History of HFpEF? Previous echo shows EF 65 to 70% normal RV and LV function, no comment on diastolic dysfunction -Repeat echo #History of hypertension Pending med rec to start home meds -Nifedipine 10mg PO TID -Labetalol 10mg IV Q4HR PRN & Hydralazine 10mg IV Q2Hr PRN >180 Systolic or >110 Diastolic BP Health Maintenance: Disp: Telemetry FEN: Renal diet with cardiac modification GI: Not indicated IVF: D5W/NS 120 mL/h x 3 L DVT: Lovenox 30 mg subQ Lines: PIV Code: Full The patient's plan was discussed with attending Dr. Sinha and senior resident Bharti Garcia DO PGY1 Internal Medicine Attending Provider Attestation/Addendum Zen, Bushra Sinha DO, attest that I was physically present for the fregoso portions of the service and evaluated the patient with the resident and I reviewed and discussed the case with the resident and agree with the resident's findings and plans of care as documented above Patient is an 84-year-old male with past medical history of hypertension, CKD stage IV, heart failure with preserved ejection fraction who was brought in by ambulance for worsening generalized weakness. Patient reports that he has been feeling unwell for the past 2 days with poor oral intake. Patient is a poor historian is unable to pinpoint or elaborate how he is not feeling well. He is noted to have scattered a brasions on his right arm wound ecchymosis on the left arm. Patient appears to be very dry and unkempt. Patient denies any nausea, vomiting, shortness of breath, fevers, chills, chest pain or diarrhea. He states that he had fallen yesterday which has resulted in the scattered abrasions. Patient is found to have acute renal failure here in the ED. Nephrology was consulted from ED. Will admit to telemetry for further workup and medical management of acute renal failure, likely due to poor p.o. intake and dehydration. Will start aggressive IV fluid hydration. Renal ultrasound ordered. Monitor volume status closely as patient has a history of acute HFpEF exacerbation.
[2024-09-13] MEDS: SODIUM CHLORIDE 0.9% 1000 ML 1,000 ML 999 ML IV (17:01)
[2024-09-13] MEDS: POTASSIUM CHLORIDE 20 mEq TABCR 40 MEQ PO (17:02)
[2024-09-13] MEDS: DIPHTH,PERTUSS(ACELL),TET VAC 0.5 ML VIAL IMi (17:02)
[2024-09-13] MEDS: FOLIC ACID INJ 1 MG/0.2 ML IVP (17:04)
[2024-09-13] MEDS: THIAMINE INJ 100 MG in SODIUM CHLORIDE 0.9% 100 ML 202 MG IV (17:07)
[2024-09-13] MEDS: DEXTROSE 5%-NS 1,000 ML 120 ML IV (17:09)
[2024-09-13] MEDS: NIFEdipine 10 MG CAPSULE PO (17:54)
[2024-09-13] MEDS: Magnesium Sulfate 4 GM Ivpb 4 GM/50 ML BAG IV (17:54)
--- NOTE | 2024-09-13 22:37 | PC.NURSE ---
Attempted to do med rec but patient does not remember the names of the home meds he takes. Per patient, he brought his meds to the ER but it was not in his belongings and when I called ER and pharmacy, they could not locate the meds.
[2024-09-14] VITALS (13 sets, daily range): BP systolic 93–132; BP diastolic 41–72; PULSE 66–96; RESP 14–20; TEMP 35.9–36.3; O2SAT 91–100; BMI 20.7; BMI 13.0; BMI 20.8
[2024-09-14 00:42] LABS: Collection Type, Urine Clean Catch; Squamous Epithelial Cell,Urine 0 /hpf (0-5)
[2024-09-14 00:47] LABS: Bilirubin,Urine Negative (Negative); Blood,Urine Negative (Negative); Clarity,Urine Clear (Clear/Hazy); Color,Urine Yellow (Lt Yel-Yel); Glucose, Urine Negative (Negative); Hyaline Casts,Urine < 1 /hpf (0-1); Ketones,Urine Negative (Negative); Leukocyte Esterase,Urine Negative (Negative); Nitrite,Urine Negative (Negative); PH,Urine 5.5 (5.0-7.0); Protein,Urine 2+ (Neg - Trace); RBC,Urine 1 /hpf (0-3); Specific Gravity,Urine 1.016 (1.001-1.035); Urobilinogen,Urine Negative mg/dL (0.0-1.0); WBC,Urine 2 /hpf (0-5)
[2024-09-14 00:54] LABS: Amphetamine/Methamp Scrn,U Negative (Negative); Barbiturate Screen,Urine Negative (Negative); Benzodiazepines Screen,Urine Negative (Negative); Benzoylecgonine Screen, Ur Negative (Negative); Fentanyl Screen,Urine Negative (Negative); Opiate Screen,Urine Negative (Negative); THC Screen,Urine Negative (Negative)
[2024-09-14 01:02] LABS: Chloride,Urine Random < 20.0 mMol/L (55.0-125.0); Creatinine,Random Urine 231 mg/dL (30-125); Potassium,Urine Random 39 mMol/L (12-62); Sodium,Urine Random < 10.0 mMol/L (20.0-110.0)
[2024-09-14] MEDS: DEXTROSE 5%-NS 1,000 ML 120 ML IV ×3 (04:44→23:53)
--- NOTE | 2024-09-14 04:56 | PC.NURSE ---
Orthostatic vitals was not done until 431 bc patient refused all night and it was not done in ER. Pt orthostatic vitals is 132/70 lying down, 114/70 sitting and 111/51 standing. MD Balderas was made aware.
[2024-09-14] MEDS: NIFEdipine 10 MG CAPSULE PO ×2 (05:49→13:27)
[2024-09-14 06:25] LABS: Basophils % (Auto) 0 % (0-2.5); Eosinophils % (Auto) 0 % (0-10); Hematocrit 26.8 % (41.0-53.0); Hemoglobin 9.7 g/dL (13.5-16.0); Immature Granulocytes % (Auto) 0 % (0-0); Immature Granulocytes Auto 0.03 Thou/mm3 (0.00-0.00); Lymphocytes # (Auto) 0.7 Thou/mm3 (1.0-4.8); Lymphocytes % (Auto) 8 % (10-50); Mean Corpuscular HGB Conc 36.2 g/dl (31.0-37.0); Mean Corpuscular Hemoglobin 33.4 pg (25.0-35.0); Mean Corpuscular Volume 92 fL (80-100); Monocytes # (Auto) 0.8 Thou/mm3 (0.0-0.8); Monocytes % (Auto) 8 % (0-12); Neutrophils # (Auto) 8.1 Thou/mm3 (1.8-7.7); Neutrophils % (Auto) 84 % (37-80); Nucleated Red Blood Cell % 0 /100 WBC (0); Platelet Count 304 Thou/mm3 (140-440); RDW Standard Deviation 42.5 fL (35.1-43.9); White Blood Count 9.7 Thou/mm3 (3.8-10.6)
[2024-09-14 06:51] LABS: Partial Thromboplastin Time 29.3 Seconds (22.0-36.0); Prothrombin Time 11.2 Seconds (9.0-12.2)
[2024-09-14 07:12] LABS: Alanine Aminotransferase 11 U/L (10-49); Albumin, Serum 3.9 gm/dL (3.4-4.8); Alkaline Phosphatase 106 U/L (46-116); Anion Gap 16 (7-16); Aspartate Amino Transferase 12 U/L (0-34); BUN/Creatinine Ratio 16 Ratio (12-20); Bilirubin,Total 0.3 mg/dL (0.3-1.2); Blood Urea Nitrogen 89 mg/dL (9-23); Calcium 8.6 mg/dL (8.3-10.6); Calcium (Corrected) 8.7 mg/dL (8.5-10.1); Carbon Dioxide 20.3 mMol/L (20.0-31.0); Cardiac Risk Estimate 2.7 RATIO (4.0-6.7); Chloride 94 mMol/L (98-107); Cholesterol 142 mg/dL (132-200); Creatinine (Component) 5.5 mg/dL (0.6-1.3); Estimated Creatinine Clearance 9.6 mL/min (>60); Glucose 111 mg/dL (74-106); HDL Cholesterol 52 mg/dL (40-60); LDL Cholesterol,Calculated 70 mg/dL (0-130); Magnesium 2.2 mg/dL (1.6-2.6); Osmolality,Calculated 289 (275-295); Phosphorous 6.1 mg/dL (2.4-5.1); Sodium 130 mMol/L (136-145); Thyroid Stimulating Hormone 1.36 uIU/mL (0.55-4.78); Total Protein 5.9 gm/dL (5.7-8.2); Triglycerides 98 mg/dL (30-150); eGFR 10 See Note
[2024-09-14 07:14] LABS: Syphilis Nonreactive (Nonreactive)
--- NOTE | 2024-09-14 08:06 | PD.RESPRO ---
Documentation for date of: 09/14/24 Subjective Subjective Interval history: Patient seen and examined. Family friend at bedside. No complaints today. Exam Vital Signs Temp Pulse Resp BP Pulse Ox O2 Del Method 97.6 F 72 14 110/58 L 96 Room Air 09/15/24 08:00 09/15/24 08:00 09/15/24 08:00 09/15/24 08:00 09/15/24 08:00 09/15/24 08:00 Narrative Exam Physical Exam: GENERAL: Well-appearing, appears stated age, hard of hearing HEENT: NC/AT. Moist mucosa. PERRLA/EOMI. Anicteric sclera. No cervical lymphadenopathy CARDIO: Heart RRR, no obvious murmurs, no JVD. PULM: Lungs CTA B/L except reduced breath sounds on right lower lobe. No shortness of breath. Patient dry coughs intermittently GI: Abdomen soft, NT/ND, +BS no organomegaly, no guarding or rebound tenderness SKIN/MSK/EXT: Dry and flaky, scaly skin. There seems to be a contusion to his right arm above the elbow likely secondary to fall, +Pedal pulses present B/L. 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 Objective Labs 09/17/24 05:05 09/17/24 05:05 Labs: Laboratory Results - last 24 hr 09/15/24 04:50 WBC 7.4 RBC 2.71 L Hgb 8.9 L Hct 25.8 L MCV 95 MCH 32.8 MCHC 34.5 RDW Std Deviation 44.2 H Plt Count 256 D Neut % (Auto) 79 Lymph % (Auto) 12 Becker % (Auto) 9 Eos % (Auto) 0 Baso % (Auto) 0 Neut # (Auto) 5.8 Lymph # (Auto) 0.9 L Becker # (Auto) 0.6 Eos # (Auto) 0.0 Baso # (Auto) 0.0 Immature Gran # (Auto) 0.03 H Absolute Nucleated RBC 0.00 Immature Gran % 0 Nucleated RBC % 0 Sodium 131 L Potassium 3.2 L Chloride 99 Carbon Dioxide 19.3 L Anion Gap 13 BUN 70 H Creatinine 4.4 H* D Estim Creat Clear Calc 11.9 L eGFR 13 L* BUN/Creatinine Ratio 16 Glucose 84 Calculated Osmolality 282 Calcium 8.5 Corrected Calcium 8.9 Phosphorus 4.7 Magnesium 1.7 Total Bilirubin 0.2 L AST 12 ALT 9 L Alkaline Phosphatase 97 Total Protein 5.5 L Albumin 3.5 Globulin 2.0 L Albumin/Globulin Ratio 1.8 Quality Measures Quality Measures none Advance care planning discussed with:: patient and other Assessment & Plan Assessment Current Active Medications: Generic Name Dose Route Start Last Admin Trade Name Freq PRN Reason Stop Dose Admin Acetaminophen 650 mg 09/13/24 15:39 Acetaminophen 325 Mg Tablet PO 10/13/24 15:38 Q6H PRN Fever >100.2 or pain Enoxaparin Sodium 30 mg 09/14/24 09:00 09/14/24 09:40 Enoxaparin Sod Inj 30 Mg/0.3 Ml Syringe SC 09/28/24 08:59 30 mg QDAY DOMENICO Administration Protocol Folic Acid 1 mg 09/14/24 09:00 09/14/24 09:40 Folic Acid 1 Mg Tablet PO 10/14/24 08:59 1 mg QDAY DOMENICO Administration Hydralazine HCl 10 mg 09/13/24 17:21 Hydralazine Inj 20 Mg/Ml Vial IV 10/13/24 17:59 Q2HR PRN Hypertension Hydroxyzine HCl 25 mg 09/14/24 11:24 09/15/24 05:12 Hydroxyzine Hcl 25 Mg Tablet PO 10/13/24 22:33 25 mg Q6HR PRN Administration ITCHING Magnesium Sulfate 2 gm in 50 mls @ 25 mls/hr 09/15/24 08:10 Magnesium Sulfate Ivpb IV 09/15/24 10:09 X1 ONE Labetalol HCl 10 mg 09/13/24 18:00 Labetalol Inj 5 Mg/Ml Vial 20 Ml IVP 10/13/24 17:59 Q4HR PRN SEE COMMENTS Lorazepam 1 mg 09/13/24 15:48 Lorazepam 2 Mg/Ml Vial IVP 09/18/24 15:47 Q2H PRN seizure Nifedipine 10 mg 09/14/24 14:00 09/15/24 05:11 Nifedipine 10 Mg Capsule PO 10/13/24 13:59 10 mg TID DOMENICO Administration Ondansetron HCl 4 mg 09/13/24 15:39 Ondansetron Inj 2 Mg/Ml Inj 2 Ml IV 10/13/24 15:38 Q6H PRN NAUSEA OR VOMITING Protocol Pantoprazole Sodium 40 mg 09/14/24 09:00 09/14/24 09:40 Pantoprazole Inj 40 Mg Vial IVP 10/14/24 08:59 40 mg QDAY DOMENICO Administration Quetiapine Fumarate 12.5 mg 09/13/24 15:51 Quetiapine Fumarate 25 Mg Tablet PO 10/13/24 20:59 HS PRN AGITATION Thiamine HCl 100 mg 09/14/24 09:00 09/14/24 09:40 Thiamine 100 Mg Tablet PO 10/14/24 08:59 100 mg DAILY DOMENICO Administration Zinc Acetate/Diphenhydramine 0 gm 09/14/24 09:22 Diphenhydramine/Zn Acet 2% Cr 30 Gm Tube TOP 10/14/24 09:21 Q6HR PRN ITCHING Protocol Plan #MORIAH on CKD #Uremia #High anion gap #Hypokalemia #Hypomagnesemia #Hyperphosphatemia Baseline creatinine 2.0-2.5, baseline GFR 14-18 Cr 5.5 Oliguric Discussed dialysis, patient seems apprehensive about dialysis, would like more time to think about it. I explained in detail the detriments of declining dialysis and the risks and benefits. Patient had verbal understanding. Plan: -replete electrolytes -IV hydration -Monitor urine output -Avoid nephrotoxins -Renally dose medications -Recommend Stephens to monitor urine output -Urine electrolytes, ordered -Renal ultrasound - Patient's care was discussed with my attending physician, Dr. Jordy Miller MD Internal Medicine PGY-3 Attending Provider Attestation/Addendum Agree with assessment and plan and findings. Seen and examined. labs reviewed. Plan discussed with resident. Herminio Spence MD
[2024-09-14 08:27] LABS: Hepatitis A Antibody IgM Non Reactive (Non React); Hepatitis B Core Antibody IgM Non Reactive (Non React); Hepatitis B Surface Ab NonReact(Not Immune) (Immune); Hepatitis B Surface Antigen Non Reactive (Non React); Hepatitis C Antibody Non Reactive (Non React)
[2024-09-14] MEDS: PANTOPRAZOLE INJ 40 MG VIAL IVP (09:40)
[2024-09-14] MEDS: THIAMINE 100 MG TABLET PO (09:40)
[2024-09-14] MEDS: FOLIC ACID 1 MG TABLET PO (09:40)
[2024-09-14] MEDS: ENOXAPARIN SOD INJ 30 MG/0.3 ML SYRINGE SC (09:40)
[2024-09-14] MEDS: POTASSIUM CHL 10 mEq IVPB 10 MEQ/100 ML BAG 100 MEQ IV ×4 (09:41→14:34)
--- NOTE | 2024-09-14 10:18 | XR_ITS ---
Examination: Carotid arterial duplex scan, ultrasound. Date and time of exam: September 14, 2024 1238 hours INDICATIONS: Episodes of severe weakness this week, heavy carotid calcification on CT cervical spine September 13, 2024 Technique: Multiple sonographic images have been obtained of the carotid arteries and vertebral arteries, B-mode/grayscale imaging and Doppler spectral analysis and color flow Peak systolic and diastolic velocities have been recorded. Systolic diastolic ratios have been calculated. Findings: Right peak systolic velocities: Distal internal carotid artery peak systolic velocity is 1.5 M/sec Proximal internal carotid artery peak systolic velocity is 0.5 M/sec Carotid bifurcation peak systolic velocity is 1.0 M/sec External carotid artery peak systolic velocity is 0.9 M/sec Vertebral artery flow is antegrade. Left peak systolic velocities: Distal internal carotid artery peak systolic velocity is 0.4 M/sec Proximal internal carotid artery peak systolic velocity is 0.5 M/sec Carotid bifurcation peak systolic velocity is 0.8 M/sec External carotid artery peak systolic velocity is 1.4 M/sec Vertebral artery flow is antegrade Doppler waveform analysis demonstrates no spectral broadening Impression: Right internal carotid artery demonstrates 20-40% stenosis. Left internal carotid artery demonstrates 0-10% stenosis.
--- NOTE | 2024-09-14 11:40 | PCS.ST ---
Swallow Eval completed. No dysphagia. Continue current diet.
--- NOTE | 2024-09-14 12:08 | PC.SS ---
S[place]ia GALVAN is aware physician resident Dr. Hay is requesting APS report be done.
[2024-09-14] MEDS: hydrOXYzine HCL 25 MG TABLET PO (13:34)
--- NOTE | 2024-09-14 13:45 | PC.SS ---
This is 84-year-old, , male who presented to the ED due to suffering from weakness. Patient appeared disheved and dirty. He had dried blood in his hair. Patient appeared alert and oriented to self and place. Patient was pleasant. Patient reported that he resides alone at home. Patient is having more weakness and unable to ambulate or complete ALDs without assistance. Patient has a walker and CPAP machine. Patient has lost over 40 pounds in the last 6-months. Patient has a sister, Lucila Henry, that he is in contact with via telephone call. Patient's PCP is Dr. Griffiths. SW completed [id number] for self neglect to APS-Sw, Desire B. When medically clear, will offer SNF services. Discharge plan: SNF. Next of kin: Lucilaeriberto Hernandez ([phone]).
--- NOTE | 2024-09-14 15:24 | ESPR_ITS ---
<Statement entered by Victorino Hay MD - 09/14/24 18:26> Patient was seen and examined at bedside. Seems to be improving. His serum creatinine decreased from 6.4-5.5, his potassium is 3.0 we will continue rehydration and also replete his potassium. Will order for the patient carotid Doppler. Nephrology team recommended to continue with the IV hydration and also at the time he might need dialysis. His orthostatic vitals came back positive which indicate most likely the patient was volume depleted. On discharge the patient will need SNF as the patient is unable to take care of himself at home which we believe that what led to his deteriorating of his kidney functions. - Patient's plan and care discussed with my attending, Dr. Shakeel Hay MD Internal Medicine PGY-2 Documentation for date of: 09/14/24 Subjective Subjective Interval history: Patient reports whole body itchiness overnight. Given Hydroxyzine with minimal relief. Patient reports that he has itchiness generalized intermittently for the past few months. Denies shortness of breath or chest pain. Exam Vital Signs Temp Pulse Resp BP Pulse Ox O2 Del Method 96.7 F L 72 14 127/72 100 Room Air 09/14/24 12:00 09/14/24 13:27 09/14/24 12:00 09/14/24 13:27 09/14/24 12:00 09/14/24 12:00 Narrative Exam General: Cachectic, in no acute distress. Skin: Multiple abrasions of upper and lower extremities, no serpiginous tracts, no uremic hilario HEENT: Normocephalic, atraumatic, conjunctiva clear, sclera non-icteric, EOM intact, PERRL, Heart: Regular rate and rhythm, no murmur or gallop Lungs: Clear to auscultation and percussion Abdomen: Soft, nontender, nondistended Extremities: No amputations or deformities, cyanosis, edema, peripheral pulses intact Neurologic: Alert oriented to self and city, moves all extremities spontaneously, Psychiatric: Cooperative, normal mood and affect. Objective Labs 09/17/24 05:05 09/17/24 05:05 Labs: Laboratory Results - last 24 hr 09/13/24 09/14/24 09/14/24 15:02 00:10 05:46 WBC 9.7 RBC 2.90 L Hgb 9.7 L D Hct 26.8 L MCV 92 MCH 33.4 MCHC 36.2 RDW Std Deviation 42.5 Plt Count 304 D Neut % (Auto) 84 H Lymph % (Auto) 8 L [place] % (Auto) 8 Eos % (Auto) 0 Baso % (Auto) 0 Neut # (Auto) 8.1 H Lymph # (Auto) 0.7 L [place] # (Auto) 0.8 Eos # (Auto) 0.0 Baso # (Auto) 0.0 Immature Gran # (Auto) 0.03 H Absolute Nucleated RBC 0.00 Immature Gran % 0 Nucleated RBC % 0 PT 11.2 INR 1.0 APTT 29.3 Sodium 130 L Potassium 3.0 L Chloride 94 L Carbon Dioxide 20.3 Anion Gap 16 BUN 89 H Creatinine 5.5 H* D Estim Creat Clear Calc 9.6 L eGFR 10 L* BUN/Creatinine Ratio 16 Glucose 111 H Calculated Osmolality 289 Calcium 8.6 Corrected Calcium 8.7 Phosphorus 6.6 H 6.1 H Magnesium 2.2 Total Bilirubin 0.3 AST 12 ALT 11 Alkaline Phosphatase 106 Total Creatine Kinase 32 L Total Protein 5.9 Albumin 3.9 D Globulin 2.0 L Albumin/Globulin Ratio 2.0 Triglycerides 98 Cholesterol 142 LDL Cholesterol, Calc 70 HDL Cholesterol 52 Cholesterol/HDL Ratio 2.7 L TSH 1.36 Ur Collection Type Clean Catch Urine Color Yellow Urine Clarity Clear Urine pH 5.5 Ur Specific [place] 1.016 Urine Protein 2+ A Urine Glucose (UA) Negative Urine Ketones Negative Urine Blood Negative Urine Nitrite Negative Urine Bilirubin Negative Urine Urobilinogen (Auto) Negative Ur Leukocyte Esterase Negative Urine RBC 1 Urine WBC 2 Ur Squamous Epith Cells 0 Urine Bacteria None Hyaline Casts < 1 Ur Random Creatinine 231 H Ur Random Sodium < 10.0 L Ur Random Potassium 39 Ur Random Chloride < 20.0 L Urine Opiates Screen Negative Urine Fentanyl Screen Negative Ur Barbiturates Screen Negative U Amphetamin/Meth Scrn Negative U Benzodiazepines Scrn Negative U Cocaine Metab Screen Negative U Marijuana (THC) Screen Negative Syphilis Serology Nonreactive Hepatitis A IgM Ab Non Reactive Hep Bs Antigen Non Reactive Hep Bs Antibody NonReact(Not Immune) L Hep B Core IgM Ab Non Reactive Hepatitis C Antibody Non Reactive Quality Measures Quality Measures none Advance care planning discussed with:: patient and other Assessment & Plan Assessment Current Active Medications: Generic Name Dose Route Start Last Admin Trade Name Freq PRN Reason Stop Dose Admin Acetaminophen 650 mg 09/13/24 15:39 Acetaminophen 325 Mg Tablet PO 10/13/24 15:38 Q6H PRN Fever >100.2 or pain Enoxaparin Sodium 30 mg 09/14/24 09:00 09/14/24 09:40 Enoxaparin Sod Inj 30 Mg/0.3 Ml Syringe SC 09/28/24 08:59 30 mg QDAY DOMENICO Administration Protocol Folic Acid 1 mg 09/14/24 09:00 09/14/24 09:40 Folic Acid 1 Mg Tablet PO 10/14/24 08:59 1 mg QDAY DOMENICO Administration Hydralazine HCl 10 mg 09/13/24 17:21 Hydralazine Inj 20 Mg/Ml Vial IV 10/13/24 17:59 Q2HR PRN Hypertension Hydroxyzine HCl 25 mg 09/14/24 11:24 09/14/24 13:34 Hydroxyzine Hcl 25 Mg Tablet PO 10/13/24 22:33 25 mg Q6HR PRN Administration ITCHING Dextrose/Sodium Chloride 1,000 mls @ 120 mls/hr 09/13/24 16:15 09/14/24 13:25 D5-Ns IV 09/14/24 17:14 120 mls/hr .[id number] DOMENICO Administration Labetalol HCl 10 mg 09/13/24 18:00 Labetalol Inj 5 Mg/Ml Vial 20 Ml IVP 10/13/24 17:59 Q4HR PRN SEE COMMENTS Lorazepam 1 mg 09/13/24 15:48 Lorazepam 2 Mg/Ml Vial IVP 09/18/24 15:47 Q2H PRN seizure Nifedipine 10 mg 09/14/24 14:00 09/14/24 13:27 Nifedipine 10 Mg Capsule PO 10/13/24 13:59 10 mg TID DOMENICO Administration Ondansetron HCl 4 mg 09/13/24 15:39 Ondansetron Inj 2 Mg/Ml Inj 2 Ml IV 10/13/24 15:38 Q6H PRN NAUSEA OR VOMITING Protocol Pantoprazole Sodium 40 mg 09/14/24 09:00 09/14/24 09:40 Pantoprazole Inj 40 Mg Vial IVP 10/14/24 08:59 40 mg QDAY DOMENICO Administration Quetiapine Fumarate 12.5 mg 09/13/24 15:51 Quetiapine Fumarate 25 Mg Tablet PO 10/13/24 20:59 HS PRN AGITATION Thiamine HCl 100 mg 09/14/24 09:00 09/14/24 09:40 Thiamine 100 Mg Tablet PO 10/14/24 08:59 100 mg DAILY DOMENICO Administration Zinc Acetate/Diphenhydramine 0 gm 09/14/24 09:22 Diphenhydramine/Zn Acet 2% Cr 30 Gm Tube TOP 10/14/24 09:21 Q6HR PRN ITCHING Protocol Plan This is an 84-year-old male with past medical history of hypertension HFpEF CKD stage IV who presents with 4 to 5 days of weakness and [address] White, assistant tennis coach was consulted and recommended admit for weakness and acute renal failure. # Acute renal failure #CKD stage IV Creatinine 6.4, previous baseline 3.9 Renal US: b/l renal cortical thinning, no hydronephrosis, moderate b/l renal parenchymal scar formation Dr. Spence(Cut Plug Packer) -Avoid Nephrotoxic drugs -Continue to monitor, possible dialysis -IV hydration -Monitor urine output -Renally dose medications -Recommend Stephens to monitor urine output # Generalized Weakness #Polypharmacy #Acute Dehydration Reports 4 to 5 days of weakness, patient is on temazepam, other possibly disorienting medications Patient lives by himself and paramedics state that house was extremely disheveled, concern for unsafe living conditions/inability to take care of himself Carotid Doppler: no critical stenosis Echo: EF 50-55%, normal LV/RV function Syphyllis, TSH, hep panel nl -Med rec -IV fluid 120 mL an hour maintenance -Dietitian referral -AUTOMOTIVE GLAZIER referral -PT referral -Social referral -Seizure, aspiration precautions #Electrolyte abnormalities #Hyponatremia #Hypomagnesemia -Replete electrolytes -IVF hydration #Chronic normocytic anemia Hemoglobin 11.7, improved from previous labs earlier this year -Monitor CBC #History of HFpEF? Previous echo shows EF 65 to 70% normal RV and LV function, no comment on diastolic dysfunction-> repeat is similar except EF 50-55% #History of hypertension Pending med rec to start home meds -Nifedipine 10mg PO TID -Labetalol 10mg IV Q4HR PRN & Hydralazine 10mg IV Q2Hr PRN >180 Systolic or >110 Diastolic BP Health Maintenance: Disp: Telemetry FEN: Renal diet with cardiac modification GI: Not indicated IVF: D5W/NS 120 mL/h x 3 L DVT: Lovenox 30 mg subQ Lines: PIV Code: Full The patient's plan was discussed with attending Dr. Beckford and senior resident Dr. Bharti Garcia, DO PGY1 Internal Medicine Attending Provider Attestation/Addendum 84-year-old male with multiple comorbidities including hypertension and CKD stage IV who presented with weakness. Patient denies any losing consciousness and denies any head trauma. In the ER, patient was noted to be dehydrated and subsequently started on IV fluid resuscitation and also noted to have MORIAH on CKD with creatinine initially at 6.4 up from 3.9 at baseline. During course of hospitalization, patient was started on aggressive IV fluid resuscitation and patient creatinine significantly improved back to baseline at 3.9. As of now, patient is hemodynamically stable, tolerating p.o. diet, alert and oriented to name, date of and place and plan to discharge the patient. I reviewed above note and agree with findings and plans. I have also personally examined the patient with medicine team and went over assessment and plan with medical team including summer intern and resident physician.
[2024-09-15] VITALS (9 sets, daily range): BP systolic 92–144; BP diastolic 57–78; PULSE 72–92; RESP 14–22; TEMP 36.1–36.9; O2SAT 95–99; BMI 20.8
[2024-09-15] MEDS: NIFEdipine 10 MG CAPSULE PO ×2 (05:11→13:22)
[2024-09-15] MEDS: hydrOXYzine HCL 25 MG TABLET PO (05:12)
[2024-09-15 05:54] LABS: Basophils % (Auto) 0 % (0-2.5); Eosinophils % (Auto) 0 % (0-10); Hematocrit 25.8 % (41.0-53.0); Immature Granulocytes % (Auto) 0 % (0-0); Immature Granulocytes Auto 0.03 Thou/mm3 (0.00-0.00); Lymphocytes # (Auto) 0.9 Thou/mm3 (1.0-4.8); Lymphocytes % (Auto) 12 % (10-50); Mean Corpuscular HGB Conc 34.5 g/dl (31.0-37.0); Mean Corpuscular Hemoglobin 32.8 pg (25.0-35.0); Mean Corpuscular Volume 95 fL (80-100); Monocytes # (Auto) 0.6 Thou/mm3 (0.0-0.8); Monocytes % (Auto) 9 % (0-12); Neutrophils # (Auto) 5.8 Thou/mm3 (1.8-7.7); Neutrophils % (Auto) 79 % (37-80); Nucleated Red Blood Cell % 0 /100 WBC (0); Platelet Count 256 Thou/mm3 (140-440); RDW Standard Deviation 44.2 fL (35.1-43.9); Red Blood Count 2.71 Miln/mm3 (4.50-5.90); White Blood Count 7.4 Thou/mm3 (3.8-10.6)
[2024-09-15 05:58] LABS: Hemoglobin 8.9 g/dL (13.5-16.0)
[2024-09-15 06:39] LABS: Alanine Aminotransferase 9 U/L (10-49); Albumin, Serum 3.5 gm/dL (3.4-4.8); Albumin/Globulin Ratio 1.8 (1.2-2.2); Alkaline Phosphatase 97 U/L (46-116); Anion Gap 13 (7-16); Aspartate Amino Transferase 12 U/L (0-34); BUN/Creatinine Ratio 16 Ratio (12-20); Bilirubin,Total 0.2 mg/dL (0.3-1.2); Blood Urea Nitrogen 70 mg/dL (9-23); Calcium 8.5 mg/dL (8.3-10.6); Calcium (Corrected) 8.9 mg/dL (8.5-10.1); Carbon Dioxide 19.3 mMol/L (20.0-31.0); Chloride 99 mMol/L (98-107); Creatinine (Component) 4.4 mg/dL (0.6-1.3); Estimated Creatinine Clearance 11.9 mL/min (>60); Glucose 84 mg/dL (74-106); Magnesium 1.7 mg/dL (1.6-2.6); Osmolality,Calculated 282 (275-295); Phosphorous 4.7 mg/dL (2.4-5.1); Potassium 3.2 mMol/L (3.4-5.1); Sodium 131 mMol/L (136-145); Total Protein 5.5 gm/dL (5.7-8.2); eGFR 13 See Note
--- NOTE | 2024-09-15 09:09 | ESPR_ITS ---
Documentation for date of: 09/15/24 Subjective Subjective Interval history: Patient seen and examined. No complaints today. Exam Vital Signs Temp Pulse Resp BP Pulse Ox O2 Del Method 97.6 F 72 14 110/58 L 96 Room Air 09/15/24 08:00 09/15/24 08:00 09/15/24 08:00 09/15/24 08:00 09/15/24 08:00 09/15/24 08:00 Narrative Exam Physical Exam: GENERAL: Well-appearing, appears stated age, hard of hearing HEENT: NC/AT. Moist mucosa. PERRLA/EOMI. Anicteric sclera. No cervical lymphadenopathy CARDIO: Heart RRR, no obvious murmurs, no JVD. PULM: Lungs CTA B/L except reduced breath sounds on right lower lobe. No shortness of breath. Patient dry coughs intermittently GI: Abdomen soft, NT/ND, +BS no organomegaly, no guarding or rebound tenderness SKIN/MSK/EXT: Dry and flaky, scaly skin. There seems to be a contusion to his right arm above the elbow likely secondary to fall, +Pedal pulses present B/L. NEURO: Awake, alert oriented x3, automotive upholsterer strength 5 out of 5, Moves extremities x4. Objective Labs 09/17/24 05:05 09/17/24 05:05 Labs: Laboratory Results - last 24 hr 09/15/24 04:50 WBC 7.4 RBC 2.71 L Hgb 8.9 L Hct 25.8 L MCV 95 MCH 32.8 MCHC 34.5 RDW Std Deviation 44.2 H Plt Count 256 D Neut % (Auto) 79 Lymph % (Auto) 12 [place] % (Auto) 9 Eos % (Auto) 0 Baso % (Auto) 0 Neut # (Auto) 5.8 Lymph # (Auto) 0.[address] [place] # (Auto) 0.6 Eos # (Auto) 0.0 Baso # (Auto) 0.0 Immature Gran # (Auto) 0.03 H Absolute Nucleated RBC 0.00 Immature Gran % 0 Nucleated RBC % 0 Sodium 131 L Potassium 3.2 L Chloride 99 Carbon Dioxide 19.3 L Anion Gap 13 BUN 70 H Creatinine 4.4 H* D Estim Creat Clear Calc 11.9 L eGFR 13 L* BUN/Creatinine Ratio 16 Glucose 84 Calculated Osmolality 282 Calcium 8.5 Corrected Calcium 8.9 Phosphorus 4.7 Magnesium 1.7 Total Bilirubin 0.2 L AST 12 ALT 9 L Alkaline Phosphatase 97 Total Protein 5.5 L Albumin 3.5 Globulin 2.0 L Albumin/Globulin Ratio 1.8 Quality Measures Quality Measures none Advance care planning discussed with:: patient Assessment & Plan Assessment Current Active Medications: Generic Name Dose Route Start Last Admin Trade Name Freq PRN Reason Stop Dose Admin Acetaminophen 650 mg 09/13/24 15:39 Acetaminophen 325 Mg Tablet PO 10/13/24 15:38 Q6H PRN Fever >100.2 or pain Enoxaparin Sodium 30 mg 09/14/24 09:00 09/14/24 09:40 Enoxaparin Sod Inj 30 Mg/0.3 Ml Syringe SC 09/28/24 08:59 30 mg QDAY DOMENICO Administration Protocol Folic Acid 1 mg 09/14/24 09:00 09/14/24 09:40 Folic Acid 1 Mg Tablet PO 10/14/24 08:59 1 mg QDAY DOMENICO Administration Hydralazine HCl 10 mg 09/13/24 17:21 Hydralazine Inj 20 Mg/Ml Vial IV 10/13/24 17:59 Q2HR PRN Hypertension Hydroxyzine HCl 25 mg 09/14/24 11:24 09/15/24 05:12 Hydroxyzine Hcl 25 Mg Tablet PO 10/13/24 22:33 25 mg Q6HR PRN Administration ITCHING Magnesium Sulfate 2 gm in 50 mls @ 25 mls/hr 09/15/24 08:10 Magnesium Sulfate Ivpb IV 09/15/24 10:09 X1 ONE Labetalol HCl 10 mg 09/13/24 18:00 Labetalol Inj 5 Mg/Ml Vial 20 Ml IVP 10/13/24 17:59 Q4HR PRN SEE COMMENTS Lorazepam 1 mg 09/13/24 15:48 Lorazepam 2 Mg/Ml Vial IVP 09/18/24 15:47 Q2H PRN seizure Nifedipine 10 mg 09/14/24 14:00 09/15/24 05:11 Nifedipine 10 Mg Capsule PO 10/13/24 13:59 10 mg TID DOMENICO Administration Ondansetron HCl 4 mg 09/13/24 15:39 Ondansetron Inj 2 Mg/Ml Inj 2 Ml IV 10/13/24 15:38 Q6H PRN NAUSEA OR VOMITING Protocol Pantoprazole Sodium 40 mg 09/14/24 09:00 09/14/24 09:40 Pantoprazole Inj 40 Mg Vial IVP 10/14/24 08:59 40 mg QDAY DOMENICO Administration Quetiapine Fumarate 12.5 mg 09/13/24 15:51 Quetiapine Fumarate 25 Mg Tablet PO 10/13/24 20:59 HS PRN AGITATION Thiamine HCl 100 mg 09/14/24 09:00 09/14/24 09:40 Thiamine 100 Mg Tablet PO 10/14/24 08:59 100 mg DAILY DOMENICO Administration Zinc Acetate/Diphenhydramine 0 gm 09/14/24 09:22 Diphenhydramine/Zn Acet 2% Cr 30 Gm Tube TOP 10/14/24 09:21 Q6HR PRN ITCHING Protocol Plan #MORIAH on CKD #Uremia #High anion gap #Hypokalemia #Hypomagnesemia #Hyperphosphatemia Baseline creatinine 2.0-2.5, baseline GFR 14-18 Cr 4.4 Better UOP Discussed dialysis, patient seems apprehensive about dialysis, would like more time to think about it. I explained in detail the detriments of declining dialysis and the risks and benefits. Patient had verbal understanding. Plan: -replete electrolytes -IV hydration -Monitor urine output -Avoid nephrotoxins -Renally dose medications -Recommend Stephens to monitor urine output - Patient's care was discussed with my attending physician, Dr. Jordy Miller MD Internal Medicine PGY-3 Attending Provider Attestation/Addendum Agree with assessment and plan and findings. Seen and examined. labs reviewed. Plan discussed with resident. Herminio Spence MD
--- NOTE | 2024-09-15 09:09 | PC.SS ---
Update: Nephrology recommendations are pending.
[2024-09-15] MEDS: Magnesium Sulfate 2 GM Ivpb 2 GM/50 ML BAG IV (09:12)
[2024-09-15] MEDS: THIAMINE 100 MG TABLET PO (09:13)
[2024-09-15] MEDS: FOLIC ACID 1 MG TABLET PO (09:13)
[2024-09-15] MEDS: ENOXAPARIN SOD INJ 30 MG/0.3 ML SYRINGE SC (09:14)
[2024-09-15] MEDS: PANTOPRAZOLE INJ 40 MG VIAL IVP (09:14)
[2024-09-15 11:49] LABS: Total Iron Binding Capacity 214 mcg/dL (250-425)
[2024-09-15 11:59] LABS: Iron 38 mcg/dL (65-175); Percent Iron Saturation 17 % (20-55); Unsaturated Iron Binding 176 (225-295)
[2024-09-15] MEDS: DiphenhydrAMINE/ZN ACET 2% CR 30 GM TUBE TOP (12:03)
--- NOTE | 2024-09-15 12:24 | PC.SS ---
FORMULATION SCIENTIST received notification to return call from [facility] in regards to patient. Call initiated no response. FORMULATION SCIENTIST left message requesting return call.
--- NOTE | 2024-09-15 13:09 | PC.SS ---
DISTRIBUTED ENERGY SYSTEMS CONSULTANT conducted bedside contact with patient to confirm discharge plan. Patient confirmed d/c plan to transition to SNF, preferred choice [facility].
--- NOTE | 2024-09-15 13:17 | PC.SS ---
Updated clinicals submitted to [facility], [place].
--- NOTE | 2024-09-15 13:34 | ESPR_ITS ---
<Statement entered by Victorino Hay MD - 09/16/24 08:12> Patient was seen and examined at bedside. Patient is improving significantly. His serum creatinine today is 4.4, BUN of 70. A total he got 3 L of IV fluids and positive balance. At this time nephrology team not anticipating dialysis. Pending SNF placement and nephrology clearance with clinical improvement. - Patient's plan and care discussed with my attending, Dr. Shakeel Hay MD Internal Medicine PGY-2 Documentation for date of: 09/15/24 Subjective Subjective Interval history: No acute events overnight. Patient states that he doesnt like the food here. He requests coffee or pie for breakfast. He states he also likes bulgarian food. Patient is also reporting itchiness. Denies melena, blood in stool. Reports last colonoscopy was years ago. Exam Vital Signs Temp Pulse Resp BP Pulse Ox O2 Del Method 98.4 F 87 17 114/75 97 Room Air 09/15/24 12:00 09/15/24 13:22 09/15/24 12:00 09/15/24 13:22 09/15/24 12:00 09/15/24 12:00 Narrative Exam General: Cachectic, in no acute distress. Skin: Multiple abrasions of upper and lower extremities, no serpiginous tracts, no uremic hilario HEENT: Normocephalic, atraumatic, conjunctiva clear, sclera non-icteric, EOM intact, PERRL, Heart: Regular rate and rhythm, no murmur or gallop Lungs: Clear to auscultation and percussion Abdomen: Soft, nontender, nondistended Extremities: No amputations or deformities, cyanosis, edema, peripheral pulses intact Neurologic: Alert&Ox4, moves all extremities spontaneously, Psychiatric: Cooperative, normal mood and affect. Objective Labs 09/17/24 05:05 09/17/24 05:05 Labs: Laboratory Results - last 24 hr 09/15/24 04:50 WBC 7.4 RBC 2.71 L Hgb 8.9 L Hct 25.8 L MCV 95 MCH 32.8 MCHC 34.5 RDW Std Deviation 44.2 H Plt Count 256 D Neut % (Auto) 79 Lymph % (Auto) 12 [place] % (Auto) 9 Eos % (Auto) 0 Baso % (Auto) 0 Neut # (Auto) 5.8 Lymph # (Auto) 0.9 L [place] # (Auto) 0.6 Eos # (Auto) 0.0 Baso # (Auto) 0.0 Immature Gran # (Auto) 0.03 H Absolute Nucleated RBC 0.00 Immature Gran % 0 Nucleated RBC % 0 Sodium 131 L Potassium 3.2 L Chloride 99 Carbon Dioxide 19.3 L Anion Gap 13 BUN 70 H Creatinine 4.4 H* D Estim Creat Clear Calc 11.9 L eGFR 13 L* BUN/Creatinine Ratio 16 Glucose 84 Calculated Osmolality 282 Calcium 8.5 Corrected Calcium 8.9 Phosphorus 4.7 Magnesium 1.7 Iron 38 L TIBC 214 L Iron Saturation 17 L Unsat Iron Binding 176 L Total Bilirubin 0.2 L AST 12 ALT 9 L Alkaline Phosphatase 97 Total Protein 5.5 L Albumin 3.5 Globulin 2.0 L Albumin/Globulin Ratio 1.8 Quality Measures Quality Measures VTE prophylaxis Advance care planning discussed with:: patient Assessment & Plan Assessment Current Active Medications: Generic Name Dose Route Start Last Admin Trade Name Freq PRN Reason Stop Dose Admin Acetaminophen 650 mg 09/13/24 15:39 Acetaminophen 325 Mg Tablet PO 10/13/24 15:38 Q6H PRN Fever >100.2 or pain Enoxaparin Sodium 30 mg 09/14/24 09:00 09/15/24 09:14 Enoxaparin Sod Inj 30 Mg/0.3 Ml Syringe SC 09/28/24 08:59 30 mg QDAY DOMENICO Administration Protocol Folic Acid 1 mg 09/14/24 09:00 09/15/24 09:13 Folic Acid 1 Mg Tablet PO 10/14/24 08:59 1 mg QDAY DOMENICO Administration Hydralazine HCl 10 mg 09/13/24 17:21 Hydralazine Inj 20 Mg/Ml Vial IV 10/13/24 17:59 Q2HR PRN Hypertension Hydroxyzine HCl 25 mg 09/14/24 11:24 09/15/24 05:12 Hydroxyzine Hcl 25 Mg Tablet PO 10/13/24 22:33 25 mg Q6HR PRN Administration ITCHING Labetalol HCl 10 mg 09/13/24 18:00 Labetalol Inj 5 Mg/Ml Vial 20 Ml IVP 10/13/24 17:59 Q4HR PRN SEE COMMENTS Lorazepam 1 mg 09/13/24 15:48 Lorazepam 2 Mg/Ml Vial IVP 09/18/24 15:47 Q2H PRN seizure Nifedipine 10 mg 09/14/24 14:00 09/15/24 13:22 Nifedipine 10 Mg Capsule PO 10/13/24 13:59 10 mg TID DOMENICO Administration Ondansetron HCl 4 mg 09/13/24 15:39 Ondansetron Inj 2 Mg/Ml Inj 2 Ml IV 10/13/24 15:38 Q6H PRN NAUSEA OR VOMITING Protocol Pantoprazole Sodium 40 mg 09/14/24 09:00 09/15/24 09:14 Pantoprazole Inj 40 Mg Vial IVP 10/14/24 08:59 40 mg QDAY DOMENICO Administration Quetiapine Fumarate 12.5 mg 09/13/24 15:51 Quetiapine Fumarate 25 Mg Tablet PO 10/13/24 20:59 HS PRN AGITATION Thiamine HCl 100 mg 09/14/24 09:00 09/15/24 09:13 Thiamine 100 Mg Tablet PO 10/14/24 08:59 100 mg DAILY DOMENICO Administration Zinc Acetate/Diphenhydramine 0 gm 09/14/24 09:22 09/15/24 12:03 Diphenhydramine/Zn Acet 2% Cr 30 Gm Tube TOP 10/14/24 09:21 1 applicatio Q6HR PRN Administration ITCHING Protocol Plan This is an 84-year-old male with past medical history of hypertension HFpEF CKD stage IV who presents with 4 to 5 days of weakness and [address] White, automotive assembler was consulted and recommended admit for weakness and acute renal failure. # Acute renal failure #CKD stage IV Creatinine 6.4, previous baseline 3.9 Renal US: b/l renal cortical thinning, no hydronephrosis, moderate b/l renal parenchymal scar formation Dr. Spence(Occ Med Physician) -Avoid Nephrotoxic drugs -Continue to monitor, possible dialysis -IV hydration -Monitor urine output -Renally dose medications -Recommend Stephens to monitor urine output # Generalized Weakness #Polypharmacy #Acute Dehydration Reports 4 to 5 days of weakness, patient is on temazepam, other possibly disorienting medications Patient lives by himself and paramedics state that house was extremely disheveled, concern for unsafe living conditions/inability to take care of himself Carotid Doppler: no critical stenosis Echo: EF 50-55%, normal LV/RV function Syphyllis, TSH, hep panel nl -Med rec -IV fluid 120 mL an hour maintenance -Dietitian referral -FIELD ENUMERATOR referral->No dysphagia, nl diet -PT referral->Recommended Rehab facility -Social referral -Seizure, aspiration precautions #Electrolyte abnormalities #Hyponatremia #Hypomagnesemia -Replete electrolytes -IVF hydration #Chronic normocytic anemia Hemoglobin 11.7->8.9, all cell lines are decreasing, likely dilutional -Iron panel -FOBT -Monitor CBC #History of HFpEF? Previous echo shows EF 65 to 70% normal RV and LV function, no comment on diastolic dysfunction-> repeat is similar except EF 50-55% #History of hypertension Pending med rec to start home meds -Nifedipine 10mg PO TID -Labetalol 10mg IV Q4HR PRN & Hydralazine 10mg IV Q2Hr PRN >180 Systolic or >110 Diastolic BP Health Maintenance: Disp: Telemetry FEN: Renal diet with cardiac modification GI: Not indicated IVF: D5W/NS 120 mL/h DVT: Lovenox 30 mg subQ Lines: PIV Code: Full The patient's plan was discussed with attending Dr. Beckford and senior resident Dr. Bharti Garcia, DO PGY1 Internal Medicine Attending Provider Attestation/Addendum 84-year-old male with multiple comorbidities including hypertension and CKD stage IV who presented with weakness. Patient denies any losing consciousness and denies any head trauma. In the ER, patient was noted to be dehydrated and subsequently started on IV fluid resuscitation and also noted to have MORIAH on CKD with creatinine initially at 6.4 up from 3.9 at baseline. During course of hospitalization, patient was started on aggressive IV fluid resuscitation and patient creatinine significantly improved. Plan to continue IV fluids and appreciate nephrology inputs. I reviewed above note and agree with findings and plans. I have also personally examined the patient with medicine team and went over assessment and plan with medical team including rn international and resident physician.
--- NOTE | 2024-09-15 15:57 | PC.NURSE ---
bhavesh from [facility] called need to call [facility] regarding discharge date,notified Maximiliano social sciences department chair.
[2024-09-15] MEDS: FERROUS SULF 325 MG TABLET PO (16:19)
[2024-09-15] MEDS: POTASSIUM CHLORIDE 20 mEq TABCR 40 MEQ PO (16:19)
--- NOTE | 2024-09-15 19:46 | PC.NURSE ---
patient trying to get out of bed, patient educated on the importance of calling for assistance and bed alarm on due to weakness, patient is refusing assistance says they had a fall few days ago but knows they will not fall again. bed alarm on and avasure initiated.
[2024-09-16] VITALS (10 sets, daily range): BP systolic 110–136; BP diastolic 59–92; PULSE 72–101; RESP 14–21; TEMP 36.1–37; O2SAT 95–98; BMI 21.6
[2024-09-16 05:36] LABS: Basophils % (Auto) 1 % (0-2.5); Eosinophils # (Auto) 0.1 Thou/mm3 (0.0-0.5); Eosinophils % (Auto) 2 % (0-10); Hematocrit 24.7 % (41.0-53.0); Immature Granulocytes % (Auto) 0 % (0-0); Immature Granulocytes Auto 0.03 Thou/mm3 (0.00-0.00); Lymphocytes # (Auto) 0.8 Thou/mm3 (1.0-4.8); Lymphocytes % (Auto) 12 % (10-50); Mean Corpuscular HGB Conc 34.8 g/dl (31.0-37.0); Mean Corpuscular Hemoglobin 33.1 pg (25.0-35.0); Mean Corpuscular Volume 95 fL (80-100); Monocytes # (Auto) 0.7 Thou/mm3 (0.0-0.8); Monocytes % (Auto) 10 % (0-12); Neutrophils % (Auto) 75 % (37-80); Nucleated Red Blood Cell % 0 /100 WBC (0); Platelet Count 276 Thou/mm3 (140-440); RDW Standard Deviation 44.7 fL (35.1-43.9); White Blood Count 6.7 Thou/mm3 (3.8-10.6)
[2024-09-16 05:41] LABS: Hemoglobin 8.6 g/dL (13.5-16.0)
[2024-09-16 06:08] LABS: Ferritin 167 ng/mL (10.5-307.3)
[2024-09-16 06:30] LABS: Alanine Aminotransferase 9 U/L (10-49); Albumin, Serum 3.2 gm/dL (3.4-4.8); Albumin/Globulin Ratio 1.8 (1.2-2.2); Alkaline Phosphatase 86 U/L (46-116); Anion Gap 11 (7-16); Aspartate Amino Transferase 10 U/L (0-34); BUN/Creatinine Ratio 17 Ratio (12-20); Bilirubin,Total 0.3 mg/dL (0.3-1.2); Blood Urea Nitrogen 69 mg/dL (9-23); Calcium 8.6 mg/dL (8.3-10.6); Calcium (Corrected) 9.2 mg/dL (8.5-10.1); Carbon Dioxide 18.1 mMol/L (20.0-31.0); Chloride 103 mMol/L (98-107); Creatinine (Component) 4.1 mg/dL (0.6-1.3); Estimated Creatinine Clearance 13.3 mL/min (>60); Globulin 1.8 gm/dL (2.3-3.5); Glucose 81 mg/dL (74-106); Magnesium 1.7 mg/dL (1.6-2.6); Osmolality,Calculated 283 (275-295); Phosphorous 3.6 mg/dL (2.4-5.1); Potassium 3.8 mMol/L (3.4-5.1); Sodium 132 mMol/L (136-145); eGFR 14 See Note
[2024-09-16] MEDS: THIAMINE 100 MG TABLET PO (08:35)
[2024-09-16] MEDS: PANTOPRAZOLE INJ 40 MG VIAL IVP (08:35)
[2024-09-16] MEDS: ENOXAPARIN SOD INJ 30 MG/0.3 ML SYRINGE SC (08:35)
[2024-09-16] MEDS: FOLIC ACID 1 MG TABLET PO (08:35)
--- NOTE | 2024-09-16 09:41 | PD.RESPRO ---
Documentation for date of: 09/16/24 Subjective Subjective Interval history: Patient seen and examined. No complaints today. Discussed dialysis in detail about risk and benefits. Patient continues to decline dialysis. Exam Vital Signs Temp Pulse Resp BP Pulse Ox O2 Del Method 97.7 F 76 19 126/92 H 96 Room Air 09/16/24 08:00 09/16/24 08:00 09/16/24 08:00 09/16/24 08:00 09/16/24 08:00 09/16/24 08:00 Narrative Exam Physical Exam: GENERAL: Well-appearing, appears stated age, hard of hearing HEENT: NC/AT. Moist mucosa. PERRLA/EOMI. Anicteric sclera. No cervical lymphadenopathy CARDIO: Heart RRR, no obvious murmurs, no JVD. PULM: Lungs CTA B/L except reduced breath sounds on right lower lobe. No shortness of breath. Patient dry coughs intermittently GI: Abdomen soft, NT/ND, +BS no organomegaly, no guarding or rebound tenderness SKIN/MSK/EXT: Dry and flaky, scaly skin. There seems to be a contusion to his right arm above the elbow likely secondary to fall, +Pedal pulses present B/L. 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 Objective Labs 09/17/24 05:05 09/17/24 05:05 Labs: Laboratory Results - last 24 hr 09/15/24 09/16/24 04:50 04:10 WBC 6.7 RBC 2.60 L Hgb 8.6 L Hct 24.7 L MCV 95 MCH 33.1 MCHC 34.8 RDW Std Deviation 44.7 H Plt Count 276 Neut % (Auto) 75 Lymph % (Auto) 12 [place] % (Auto) 10 Eos % (Auto) 2 Baso % (Auto) 1 Neut # (Auto) 5.0 Lymph # (Auto) 0.8 L [place] # (Auto) 0.7 Eos # (Auto) 0.1 Baso # (Auto) 0.0 Immature Gran # (Auto) 0.03 H Absolute Nucleated RBC 0.00 Immature Gran % 0 Nucleated RBC % 0 Sodium 132 L Potassium 3.8 D Chloride 103 Carbon Dioxide 18.1 L Anion Gap 11 BUN 69 H Creatinine 4.1 H* Estim Creat Clear Calc 13.3 L eGFR 14 L* BUN/Creatinine Ratio 17 Glucose 81 Calculated Osmolality 283 Calcium 8.6 Corrected Calcium 9.2 Phosphorus 3.6 Magnesium 1.7 Iron 38 L TIBC 214 L Iron Saturation 17 L Unsat Iron Binding 176 L Ferritin 167 Total Bilirubin 0.3 AST 10 ALT 9 L Alkaline Phosphatase 86 Total Protein 5.0 L Albumin 3.2 L Globulin 1.8 L Albumin/Globulin Ratio 1.8 Quality Measures Quality Measures VTE prophylaxis Advance care planning discussed with:: patient Assessment & Plan Assessment Current Active Medications: Generic Name Dose Route Start Last Admin Trade Name Freq PRN Reason Stop Dose Admin Acetaminophen 650 mg 09/13/24 15:39 Acetaminophen 325 Mg Tablet PO 10/13/24 15:38 Q6H PRN Fever >100.2 or pain Enoxaparin Sodium 30 mg 09/14/24 09:00 09/16/24 08:35 Enoxaparin Sod Inj 30 Mg/0.3 Ml Syringe SC 09/28/24 08:59 30 mg QDAY DOMENICO Administration Protocol Ferrous Sulfate 325 mg 09/15/24 15:45 09/15/24 16:19 Ferrous Sulf 325 Mg Tablet PO 10/15/24 15:44 325 mg QOD DOMENICO Administration Folic Acid 1 mg 09/14/24 09:00 09/16/24 08:35 Folic Acid 1 Mg Tablet PO 10/14/24 08:59 1 mg QDAY DOMENICO Administration Hydralazine HCl 10 mg 09/13/24 17:21 Hydralazine Inj 20 Mg/Ml Vial IV 10/13/24 17:59 Q2HR PRN Hypertension Hydroxyzine HCl 25 mg 09/14/24 11:24 09/15/24 05:12 Hydroxyzine Hcl 25 Mg Tablet PO 10/13/24 22:33 25 mg Q6HR PRN Administration ITCHING Labetalol HCl 10 mg 09/13/24 18:00 Labetalol Inj 5 Mg/Ml Vial 20 Ml IVP 10/13/24 17:59 Q4HR PRN SEE COMMENTS Lorazepam 1 mg 09/13/24 15:48 Lorazepam 2 Mg/Ml Vial IVP 09/18/24 15:47 Q2H PRN seizure Nifedipine 10 mg 09/14/24 14:00 09/16/24 05:03 Nifedipine 10 Mg Capsule PO 10/13/24 13:59 Not Given TID DOMENICO Ondansetron HCl 4 mg 09/13/24 15:39 Ondansetron Inj 2 Mg/Ml Inj 2 Ml IV 10/13/24 15:38 Q6H PRN NAUSEA OR VOMITING Protocol Pantoprazole Sodium 40 mg 09/14/24 09:00 09/16/24 08:35 Pantoprazole Inj 40 Mg Vial IVP 10/14/24 08:59 40 mg QDAY DOMENICO Administration Quetiapine Fumarate 12.5 mg 09/13/24 15:51 Quetiapine Fumarate 25 Mg Tablet PO 10/13/24 20:59 HS PRN AGITATION Thiamine HCl 100 mg 09/14/24 09:00 09/16/24 08:35 Thiamine 100 Mg Tablet PO 10/14/24 08:59 100 mg DAILY DOMENICO Administration Zinc Acetate/Diphenhydramine 0 gm 09/14/24 09:22 09/15/24 12:03 Diphenhydramine/Zn Acet 2% Cr 30 Gm Tube TOP 10/14/24 09:21 1 applicatio Q6HR PRN Administration ITCHING Protocol Plan #MORIAH on CKD #Hypokalemia, resolved #Hypomagnesemia, resolved #Hyperphosphatemia, resolved Baseline creatinine 2.0-2.5, baseline GFR 14-18 Cr 4.4 -> 4.1 Better UOP Discussed dialysis, patient seems apprehensive about dialysis, would like more time to think about it. I explained in detail the detriments of declining dialysis and the risks and benefits. Patient had verbal understanding. Recommendations: -replete electrolytes -IV hydration -Monitor urine output -Avoid nephrotoxins -Renally dose medications -Recommend Stephens to monitor urine output -keep patient one additional day - Patient's care was discussed with my attending physician, Dr. Jordy Miller MD Internal Medicine PGY-3 Attending Provider Attestation/Addendum Agree with assessment and plan and findings. Seen and examined. labs reviewed. Plan discussed with resident. Herminio Spence MD
[2024-09-16] MEDS: hydrOXYzine HCL 25 MG TABLET PO (12:35)
[2024-09-16] MEDS: ACETAMINOPHEN 325 MG TABLET 650 MG PO ×2 (12:35→22:02)
--- NOTE | 2024-09-16 14:01 | ESPR_ITS ---
Documentation for date of: 09/16/24 Subjective Subjective Interval history: Acute events overnight patient reports bilateral foot pain, right worse left. Tender to the touch and that the toes hurt more than the midfoot or hindfoot. Patient notes the pain started earlier today. Exam Vital Signs Temp Pulse Resp BP Pulse Ox O2 Del Method 97.4 F 78 20 116/74 98 Room Air 09/16/24 12:00 09/16/24 12:00 09/16/24 12:00 09/16/24 12:00 09/16/24 12:00 09/16/24 12:00 Narrative Exam General: Cachectic, in no acute distress. Skin: Multiple abrasions of upper and lower extremities, no serpiginous tracts, no uremic hilario HEENT: Normocephalic, atraumatic, conjunctiva clear, sclera non-icteric, EOM intact, PERRL, Heart: Regular rate and rhythm, no murmur or gallop Lungs: Clear to auscultation and percussion Abdomen: Soft, nontender, nondistended Extremities: No amputations or deformities, cyanosis, edema, peripheral pulses intact, less than 2-second cap refill, 2+ DP pulses, 5 out of 5 muscle strength in dorsiflexion and plantarflexion, warm to the touch, mildly tender to palpation of whole foot, sensation is grossly intact of bilateral lower extremities Neurologic: Alert&Ox4, moves all extremities spontaneously, Psychiatric: Cooperative, normal mood and affect. Objective Labs 09/17/24 05:05 09/17/24 05:05 Labs: Laboratory Results - last 24 hr 09/16/24 04:10 WBC 6.7 RBC 2.60 L Hgb 8.6 L Hct 24.7 L MCV 95 MCH 33.1 MCHC 34.8 RDW Std Deviation 44.7 H Plt Count 276 Neut % (Auto) 75 Lymph % (Auto) 12 [place] % (Auto) 10 Eos % (Auto) 2 Baso % (Auto) 1 Neut # (Auto) 5.0 Lymph # (Auto) 0.8 L [place] # (Auto) 0.7 Eos # (Auto) 0.1 Baso # (Auto) 0.0 Immature Gran # (Auto) 0.03 H Absolute Nucleated RBC 0.00 Immature Gran % 0 Nucleated RBC % 0 Sodium 132 L Potassium 3.8 D Chloride 103 Carbon Dioxide 18.1 L Anion Gap 11 BUN 69 H Creatinine 4.1 H* Estim Creat Clear Calc 13.3 L eGFR 14 L* BUN/Creatinine Ratio 17 Glucose 81 Calculated Osmolality 283 Calcium 8.6 Corrected Calcium 9.2 Phosphorus 3.6 Magnesium 1.7 Ferritin 167 Total Bilirubin 0.3 AST 10 ALT 9 L Alkaline Phosphatase 86 Total Protein 5.0 L Albumin 3.2 L Globulin 1.8 L Albumin/Globulin Ratio 1.8 Quality Measures Quality Measures VTE prophylaxis Advance care planning discussed with:: patient Assessment & Plan Assessment Current Active Medications: Generic Name Dose Route Start Last Admin Trade Name Freq PRN Reason Stop Dose Admin Acetaminophen 650 mg 09/13/24 15:39 09/16/24 12:35 Acetaminophen 325 Mg Tablet PO 10/13/24 15:38 650 mg Q6H PRN Administration Fever >100.2 or pain Enoxaparin Sodium 30 mg 09/14/24 09:00 09/16/24 08:35 Enoxaparin Sod Inj 30 Mg/0.3 Ml Syringe SC 09/28/24 08:59 30 mg QDAY DOMENICO Administration Protocol Ferrous Sulfate 325 mg 09/15/24 15:45 09/15/24 16:19 Ferrous Sulf 325 Mg Tablet PO 10/15/24 15:44 325 mg QOD DOMENICO Administration Folic Acid 1 mg 09/14/24 09:00 09/16/24 08:35 Folic Acid 1 Mg Tablet PO 10/14/24 08:59 1 mg QDAY DOMENICO Administration Hydralazine HCl 10 mg 09/13/24 17:21 Hydralazine Inj 20 Mg/Ml Vial IV 10/13/24 17:59 Q2HR PRN Hypertension Hydroxyzine HCl 25 mg 09/14/24 11:24 09/16/24 12:35 Hydroxyzine Hcl 25 Mg Tablet PO 10/13/24 22:33 25 mg Q6HR PRN Administration ITCHING Labetalol HCl 10 mg 09/13/24 18:00 Labetalol Inj 5 Mg/Ml Vial 20 Ml IVP 10/13/24 17:59 Q4HR PRN SEE COMMENTS Lorazepam 1 mg 09/13/24 15:48 Lorazepam 2 Mg/Ml Vial IVP 09/18/24 15:47 Q2H PRN seizure Nifedipine 10 mg 09/14/24 14:00 09/16/24 05:03 Nifedipine 10 Mg Capsule PO 10/13/24 13:59 Not Given TID DOMENICO Ondansetron HCl 4 mg 09/13/24 15:39 Ondansetron Inj 2 Mg/Ml Inj 2 Ml IV 10/13/24 15:38 Q6H PRN NAUSEA OR VOMITING Protocol Pantoprazole Sodium 40 mg 09/17/24 09:00 Pantoprazole 40 Mg Tablet PO 10/14/24 08:59 QDAY DOMENICO Quetiapine Fumarate 12.5 mg 09/13/24 15:51 Quetiapine Fumarate 25 Mg Tablet PO 10/13/24 20:59 HS PRN AGITATION Thiamine HCl 100 mg 09/14/24 09:00 09/16/24 08:35 Thiamine 100 Mg Tablet PO 10/14/24 08:59 100 mg DAILY DOMENICO Administration Zinc Acetate/Diphenhydramine 0 gm 09/14/24 09:22 09/15/24 12:03 Diphenhydramine/Zn Acet 2% Cr 30 Gm Tube TOP 10/14/24 09:21 1 applicatio Q6HR PRN Administration ITCHING Protocol Plan This is an 84-year-old male with past medical history of hypertension HFpEF CKD stage IV who presents with 4 to 5 days of weakness and [address] White, furrier shop supervisor was consulted and recommended admit for weakness and acute renal failure. # Acute renal failure #CKD stage IV Creatinine 6.4-4.1, previous baseline 3.9 Renal US: b/l renal cortical thinning, no hydronephrosis, moderate b/l renal parenchymal scar formation Dr. Spence(Textile Slitting Machine Operator) -Avoid Nephrotoxic drugs -Continue to monitor, possible dialysis -IV hydration -Monitor urine output -Renally dose medications -Recommend Stephens to monitor urine output # Generalized Weakness #Polypharmacy #Acute Dehydration Reports 4 to 5 days of weakness, patient is on temazepam, other possibly disorienting medications Patient lives by himself and paramedics state that house was extremely disheveled, concern for unsafe living conditions/inability to take care of himself Carotid Doppler: no critical stenosis Echo: EF 50-55%, normal LV/RV function Syphyllis, TSH, hep panel nl -Med rec -IV fluid 120 mL an hour maintenance -Dietitian referral -DIRECTOR TELECOMMUNICATIONS referral->No dysphagia, nl diet -PT referral->Recommended Rehab facility -Social referral -Seizure, aspiration precautions #Electrolyte abnormalities #Hyponatremia #Hypomagnesemia -Replete electrolytes -IVF hydration #Chronic normocytic anemia Hemoglobin 11.7->8.9, all cell lines are decreasing, likely dilutional Iron panel shows low iron, TIBC and ferritin likely iron deficiency anemia due to poor p.o. intake -Ferrous sulfate 325 mg p.o. daily -FOBT -Monitor CBC #History of HFpEF? Previous echo shows EF 65 to 70% normal RV and LV function, no comment on diastolic dysfunction-> repeat is similar except EF 50-55% #History of hypertension Pending med rec to start home meds -Nifedipine 10mg PO TID -Labetalol 10mg IV Q4HR PRN & Hydralazine 10mg IV Q2Hr PRN >180 Systolic or >110 Diastolic BP Health Maintenance: Disp: Telemetry FEN: Renal diet with cardiac modification GI: Not indicated IVF: None DVT: Lovenox 30 mg subQ Lines: PIV Code: Full The patient's plan was discussed with attending Dr. Beckford and senior resident Dr. Bharti Garcia, DO PGY1 Internal Medicine Attending Provider Attestation/Addendum 84-year-old male with multiple comorbidities including hypertension and CKD stage IV who presented with weakness. Patient denies any losing consciousness and denies any head trauma. In the ER, patient was noted to be dehydrated and subsequently started on IV fluid resuscitation and also noted to have MORIAH on CKD with creatinine initially at 6.4 up from 3.9 at baseline. During course of hospitalization, patient was started on aggressive IV fluid resuscitation and patient creatinine significantly improved. Plan to continue IV fluids and appreciate nephrology inputs. I reviewed above note and agree with findings and plans. I have also personally examined the patient with medicine team and went over assessment and plan with medical team including marketing operations intern and resident physician.
[2024-09-16] MEDS: NIFEdipine 10 MG CAPSULE PO (14:23)
--- NOTE | 2024-09-16 14:29 | PC.SS ---
Rounding Note: Plan is to d/c patient to SNF tomorrow, pending authorization.
[2024-09-17] VITALS (9 sets, daily range): BP systolic 93–150; BP diastolic 60–87; PULSE 64–97; RESP 16–21; TEMP 36.2–36.7; O2SAT 96–99; BMI 21.6; BMI 13.0
[2024-09-17 05:53] LABS: Basophils % (Auto) 1 % (0-2.5); Eosinophils # (Auto) 0.1 Thou/mm3 (0.0-0.5); Eosinophils % (Auto) 2 % (0-10); Hematocrit 23.9 % (41.0-53.0); Immature Granulocytes % (Auto) 1 % (0-0); Immature Granulocytes Auto 0.03 Thou/mm3 (0.00-0.00); Lymphocytes # (Auto) 0.9 Thou/mm3 (1.0-4.8); Lymphocytes % (Auto) 13 % (10-50); Mean Corpuscular HGB Conc 34.7 g/dl (31.0-37.0); Mean Corpuscular Hemoglobin 33.2 pg (25.0-35.0); Mean Corpuscular Volume 96 fL (80-100); Monocytes # (Auto) 0.7 Thou/mm3 (0.0-0.8); Monocytes % (Auto) 12 % (0-12); Neutrophils # (Auto) 4.7 Thou/mm3 (1.8-7.7); Neutrophils % (Auto) 72 % (37-80); Nucleated Red Blood Cell % 0 /100 WBC (0); Platelet Count 251 Thou/mm3 (140-440); RDW Standard Deviation 44.4 fL (35.1-43.9); White Blood Count 6.5 Thou/mm3 (3.8-10.6)
[2024-09-17 06:14] LABS: Anion Gap 9 (7-16); BUN/Creatinine Ratio 18 Ratio (12-20); Blood Urea Nitrogen 72 mg/dL (9-23); Calcium 8.7 mg/dL (8.3-10.6); Carbon Dioxide 19.3 mMol/L (20.0-31.0); Chloride 103 mMol/L (98-107); Creatinine (Component) 3.9 mg/dL (0.6-1.3); Glucose 78 mg/dL (74-106); Osmolality,Calculated 282 (275-295); Potassium 4.1 mMol/L (3.4-5.1); Sodium 131 mMol/L (136-145); eGFR 14 See Note
[2024-09-17 06:40] LABS: Hemoglobin 8.3 g/dL (13.5-16.0)
[2024-09-17] MEDS: FOLIC ACID 1 MG TABLET PO (09:19)
[2024-09-17] MEDS: THIAMINE 100 MG TABLET PO (09:19)
[2024-09-17] MEDS: ENOXAPARIN SOD INJ 30 MG/0.3 ML SYRINGE SC (09:19)
[2024-09-17] MEDS: PANTOPRAZOLE 40 MG TABLET PO (09:19)
[2024-09-17] MEDS: FERROUS SULF 325 MG TABLET PO (09:19)
--- NOTE | 2024-09-17 10:11 | ESDS_ITS ---
Planned Discharge Date 09/17/24 DS: Providers Provider Date of admission: 09/13/24 15:39 Primary care physician: Jessy Griffiths MD Admitting Provider: Bushra Sinha DO Attending Provider on Admission: Libia Beckford MD Consults: 09/13/24 14:20 Consult to Nephrology Stat Comment: Consulting Provider: Herminio Spence 09/13/24 15:51 PT [Referral Physical Therapy] Routine Comment: Physician Instructions: Referral Speech Therapy Routine Comment: 09/13/24 15:56 Referral Registered Dietitian Routine Comment: 09/14/24 16:37 Referral Wound Care Routine Comment: Attending Provider on DC: Libia Beckford MD Discharging Provider: Libia Beckford MD Diagnosis Problem List Completed Was Problem List Reviewed/Reconciled?: Yes Hospital Course - Hospitalist Hospital Course Hospital course: 84-year-old male with multiple comorbidities including hypertension and CKD stage IV who presented with weakness. Patient denies any losing consciousness and denies any head trauma. In the ER, patient was noted to be dehydrated and subsequently started on IV fluid resuscitation and also noted to have MORIAH on CKD with creatinine initially at 6.4 up from 3.9 at baseline. During course of hospitalization, patient was started on aggressive IV fluid resuscitation and patient creatinine significantly improved back to baseline at 3.9. As of now, patient is hemodynamically stable, tolerating p.o. diet, alert and oriented to name, date of and place and plan to discharge the patient. 1. CKD stage IV ? Back to baseline creatinine of 3.9 ? Plan was to discharge the patient yesterday however nephrology recommended 1 more day for which we will discharge today ? Follow-up with nephrology in the next 1-2 weeks 2. Hypertension ? Will discharge patient on home dose of amlodipine 5 mg daily 3. Severe dehydration ? Resolved 4. Normocytic anemia ? Chronic in nature ? Continue ferrous sulfate 325 mg p.o. daily ? Will need outpatient anemia workup 5. Heart failure with preserved EF ? Does not appear to be in fluid overload ? Repeat echocardiogram with EF 50-55% with no comment on diastolic dysfunction Time Spent with Patient Time attestation: Total time spent providing and/or coordinating discharge services: Time spent: Greater than 30 minutes Discharge Results Labs Diagrams: 09/17/24 05:05 09/17/24 05:05 Labs: Short CBC 09/17/24 Range/Units 05:05 WBC 6.5 (3.8-10.6) Thou/mm3 Hgb 8.3 L (13.5-16.0) g/dL Hct 23.9 L (41.0-53.0) % Plt Count 251 (140-440) Thou/mm3 BMP 09/17/24 05:05 Sodium 131 L Potassium 4.1 Chloride 103 Carbon Dioxide 19.3 L BUN 72 H Creatinine 3.9 H Glucose 78 Calcium 8.7 Exam Vital Signs Temp Pulse Resp BP Pulse Ox O2 Del Method 97.1 F 78 18 150/63 H 99 Room Air 09/17/24 08:00 09/17/24 08:00 09/17/24 08:00 09/17/24 08:00 09/17/24 08:00 09/17/24 08:00 Narrative Physical Exam: General: Alert and oriented to name, date of and place HEENT: Normocephalic, atraumatic Cardiac: Regular rate and rhythm, no murmurs Lungs: Clear to auscultation with no wheezing or crackles Abdomen: Nondistended, nontender positive bowel sounds. No guarding or rebound tenderness. Neurology: Cranial nerves II to XII intact and patient able to move all 4 extremities. Skin: No rash or edema. Stephens in place with clear urine Discharge Plan Plan Patient Disposition: Xfer Skilled Nsg Fac (SNF) Patient condition on transfer: Stable Prescriptions/Referrals Prescriptions/Med Rec: New ferrous sulfate 325 mg (65 mg iron) Tablet,Delayed Release (Dr/Ec) 325 mg PO QOD 30 Days Qty: 15 0RF Continued omeprazole 20 mg Capsule,Delayed Release(Dr/Ec) 20 mg PO QDAY amlodipine 5 mg Tablet 5 mg PO QDAY levocetirizine 5 mg Tablet 5 mg PO QPM Kayley-Charley 0.8 mg Tablet 1 tab PO QDAY Discontinued donepezil 10 mg Tablet 10 mg PO HS oxybutynin chloride 5 mg Tablet 5 mg PO HS No Action tamsulosin 0.4 mg Capsule 0.4 mg PO QDAY Referrals: Jessy Griffiths MD [Primary Care Provider] - Patient/Caregiver Discharge Instructions Discharge Activity: activity as tolerated Other Discharge Activity Instructions:: Follow up with PCP in the next 3-5 days Follow up with slumber room attendant Dr. Spence in the next 1-2 weeks Print Language: Indonesian Stand Alone Forms: Constance Award Info., Patient Portal Info Letter Discharge Order Discharge Orders: Discharge (Routine); Ordered 09/17/24 Ordered By: Libia Beckford Quality Discharge Quality Measures VTE prophylaxis
--- NOTE | 2024-09-17 10:12 | PC.SS ---
VICE PRESIDENT AND PORTFOLIO MANAGER received call from REGINALD Joseph requesting update on the patient's discharge plan. VICE PRESIDENT AND PORTFOLIO MANAGER notified [facility] staff that plan is for the patient to discharge to SNF. Preferred SNF is [facility].
--- NOTE | 2024-09-17 14:13 | PC.SS ---
PASSENGER VESSEL CHEF notified that insurance is requesting updated PT notes for authorization. PASSENGER VESSEL CHEF confirmed that PT will be conducting assessment of patient today.
--- NOTE | 2024-09-17 22:17 | PC.NURSE ---
MD Mason notified that pt has discharge orders from this morning to go to a SNF. He said to leave the discharge orders as it is and will reevaluate tomorrow
[2024-09-18] VITALS: PULSE 87
[2024-09-18 04:00] VITALS: BP 140/62; PULSE 85; PULSE 91; RESP 17; TEMP 36.5; O2SAT 96
[2024-09-18 05:08] VITALS: BP 140/62; PULSE 85
[2024-09-18 06:00] VITALS: BMI 21.6
[2024-09-18 08:00] VITALS: BP 138/70; PULSE 87; PULSE 95; RESP 17; TEMP 36.2; O2SAT 96
--- NOTE | 2024-09-18 08:36 | PC.SS ---
MANDY followed up with [facility] at [facility] regarding auth and Annel stated pt was cleared from [facility], MANDY to followed up with nurse Pinzon and will start getting items ready for d.c.
--- NOTE | 2024-09-18 09:08 | PC.SS ---
HEAD OF MOBILE called [facility] for transportation and pt's insurance does not cover transportation, HEAD OF MOBILE followed up with nurse and HEAD OF MOBILE will explore other options.
[2024-09-18] MEDS: ENOXAPARIN SOD INJ 30 MG/0.3 ML SYRINGE SC (09:25)
[2024-09-18] MEDS: THIAMINE 100 MG TABLET PO (09:25)
--- NOTE | 2024-09-18 09:25 | PC.SS ---
RESISTANCE MACHINE WELDER SETTER called [facility] and got KERYR signed for transportation, pending ETA times.
[2024-09-18] MEDS: PANTOPRAZOLE 40 MG TABLET PO (09:26)
[2024-09-18] MEDS: FOLIC ACID 1 MG TABLET PO (09:26)
--- NOTE | 2024-09-18 09:56 | PC.SS ---
SENIOR QUANTITY SURVEYOR got KERRY paper signed for [facility]
--- NOTE | 2024-09-18 09:57 | PC.SS ---
ETA 2:45 pm via [facility]
--- NOTE | 2024-09-18 11:29 | ESDS_ITS ---
Planned Discharge Date 09/18/24 DS: Providers Provider Date of admission: 09/13/24 15:39 Primary care physician: Jessy Griffiths MD Admitting Provider: Bushra Sinha DO Attending Provider on Admission: Libia Beckford MD Consults: 09/13/24 14:20 Consult to Nephrology Stat Comment: Consulting Provider: Herminio Spence 09/13/24 15:51 PT [Referral Physical Therapy] Routine Comment: Physician Instructions: Referral Speech Therapy Routine Comment: 09/13/24 15:56 Referral Registered Dietitian Routine Comment: 09/14/24 16:37 Referral Wound Care Routine Comment: Attending Provider on DC: Libia Beckford MD Discharging Provider: Libia Beckford MD DS: Diagnosis Problem List Completed Was Problem List Reviewed/Reconciled?: Yes Hospital Course Hospital Course Hospital course: 84-year-old male with multiple comorbidities including hypertension and CKD stage IV who presented with weakness. Patient denies any losing consciousness and denies any head trauma. In the ER, patient was noted to be dehydrated and subsequently started on IV fluid resuscitation and also noted to have MORIAH on CKD with creatinine initially at 6.4 up from 3.9 at baseline. During course of hospitalization, patient was started on aggressive IV fluid resuscitation and patient creatinine significantly improved back to baseline at 3.9. As of now, patient is hemodynamically stable, tolerating p.o. diet, alert and oriented to name, date of and place and plan to discharge the patient. 1. CKD stage IV ? Back to baseline creatinine of 3.9 ? Plan was to discharge the patient yesterday however nephrology recommended 1 more day for which we will discharge today ? Follow-up with nephrology in the next 1-2 weeks 2. Hypertension ? Will discharge patient on home dose of amlodipine 5 mg daily 3. Severe dehydration ? Resolved 4. Normocytic anemia ? Chronic in nature ? Continue ferrous sulfate 325 mg p.o. daily ? Will need outpatient anemia workup 5. Heart failure with preserved EF ? Does not appear to be in fluid overload ? Repeat echocardiogram with EF 50-55% with no comment on diastolic dysfunction The patient's plan was discussed with attending Dr. Beckford and senior resident Dr. Gretta Garcia, DO PGY1 Internal Medicine Senior resident attestation: Patient evaluated and examined at the bedside, plan of care discussed with rest of the team including my attending physician, except as noted. The patient was admitted with MORIAH on CKD, initial creatinine 6.4, nephrology Dr. Guallpa was consulted, recommended conservative management, patient's creatinine returned back to baseline creatinine 3.9, holding off on hemodialysis for now. Patient will require physical therapy at SNF. Patient is advised to follow-up with his primary care physician and [facility] on outpatient basis. #CKD stage IV #Hypertension #Generalized weakness #Dehydration #Anemia #HFpEF Quresh PGY2 Time Spent with Patient Time attestation: Total time spent providing and/or coordinating discharge services: Time spent: Greater than 30 minutes Exam Vital Signs Temp Pulse Resp BP Pulse Ox O2 Del Method 97.1 F 87 17 138/70 H 96 Room Air 09/18/24 08:00 09/18/24 08:00 09/18/24 08:00 09/18/24 08:00 09/18/24 08:00 09/18/24 08:00 Narrative Exam General: Cachectic, in no acute distress. Skin: Multiple abrasions of upper and lower extremities, no serpiginous tracts, no uremic hilario HEENT: Normocephalic, atraumatic, conjunctiva clear, sclera non-icteric, EOM intact, PERRL, Heart: Regular rate and rhythm, no murmur or gallop Lungs: Clear to auscultation and percussion Abdomen: Soft, nontender, nondistended Extremities: No amputations or deformities, cyanosis, edema, peripheral pulses intact, less than 2-second cap refill, 2+ DP pulses, 5 out of 5 muscle strength in dorsiflexion and plantarflexion, warm to the touch, mildly tender to palpation of whole foot, sensation is grossly intact of bilateral lower extremities Neurologic: Alert&Ox4, moves all extremities spontaneously, Psychiatric: Cooperative, normal mood and affect. Discharge Plan Plan Patient Disposition: Xfer Skilled Nsg Fac ([facility]) Patient condition on transfer: Stable Prescriptions/Referrals Prescriptions/Med Rec: New ferrous sulfate 325 mg (65 mg iron) Tablet,Delayed Release (Dr/Ec) 325 mg PO QOD 30 Days Qty: 15 0RF Continued omeprazole 20 mg Capsule,Delayed Release(Dr/Ec) 20 mg PO QDAY amlodipine 5 mg Tablet 5 mg PO QDAY levocetirizine 5 mg Tablet 5 mg PO QPM Kayley-Charley 0.8 mg Tablet 1 tab PO QDAY Discontinued donepezil 10 mg Tablet 10 mg PO HS oxybutynin chloride 5 mg Tablet 5 mg PO HS No Action tamsulosin 0.4 mg Capsule 0.4 mg PO QDAY Referrals: Jessy Griffiths MD [Primary Care Provider] - Patient/Caregiver Discharge Instructions Discharge Activity: activity as tolerated Other Discharge Activity Instructions:: Follow up with PCP in the next 3-5 days Follow up with manager home healthcare Dr. Spence in the next 1-2 weeks Education Materials: Kidney Disease Fluid Intake, CKD Dc Print Language: Italian Stand Alone Forms: Constance Award Info., Patient Portal Info Letter Discharge Order Discharge Orders: Discharge (Routine); Ordered 09/18/24 Ordered By: Libia Beckford Quality Discharge Quality Measures VTE prophylaxis
[2024-09-18 12:00] VITALS: BP 132/71; PULSE 90; PULSE 93; RESP 15; TEMP 36.5; O2SAT 90
[2024-09-18 13:08] VITALS: BP 138/70; PULSE 87
[2024-09-18] MEDS: NIFEdipine 10 MG CAPSULE PO (13:08)
--- NOTE | 2024-09-18 15:07 | PC.PT ---
1440- patient refused to changed dressing.patient is awake, alert , conbative, uncooperative.
== END 2024-09-18 14:33 | disposition skilled nursing facility (03) | DRG 683 ==
LOC: SERX 14:30 → SERHOLD 16:17 → S2NX 18:30
PROVIDERS: Internal Medicine; Registered Nurse General Practice; Student in an Organized Health Care Education/Training Program; Admitting Provider Internal Medicine; Emergency Provider Emergency Medicine; PCP Family Medicine; Visit Provider Internal Medicine
DX: N17.9 Acute kidney failure, unspecified (principal); E87.1 Hypo-osmolality and hyponatremia; I13.0 Hypertensive heart and chronic kidney disease with heart failure and stage 1 through stage 4 chronic kidney disease, or unspecified chronic kidney disease; I50.32 Chronic diastolic (congestive) heart failure; R64 Cachexia; N18.4 Chronic kidney disease, stage 4 (severe); E86.0 Dehydration; I44.4 Left anterior fascicular block; E83.42 Hypomagnesemia; S51.011A Laceration without foreign body of right elbow, initial encounter; D63.1 Anemia in chronic kidney disease; I25.10 Atherosclerotic heart disease of native coronary artery without angina pectoris; E87.6 Hypokalemia; E83.39 Other disorders of phosphorus metabolism; S40.812A Abrasion of left upper arm, initial encounter; S40.811A Abrasion of right upper arm, initial encounter; S80.812A Abrasion, left lower leg, initial encounter; S80.811A Abrasion, right lower leg, initial encounter; Z95.5 Presence of coronary angioplasty implant and graft; Z23 Encounter for immunization; R29.6 Repeated falls; Z60.2 Problems related to living alone; Z68.21 Body mass index [BMI] 21.0-21.9, adult; H91.90 Unspecified hearing loss, unspecified ear; Z79.899 Other long term (current) drug therapy; W19.XXXA Unspecified fall, initial encounter; Y93.01 Activity, walking, marching and hiking
CPT/HCPCS: 36415; 70450; 71045; 72125; 76770; 80048; 80053; 80061; 80074; 80307; 81001; 82436; 82550; 82570; 82728; 83540; 83550; 83605; 83615; 83735; 83880; 84100; 84133; 84300; 84443; 84484; 85025; 85610; 85730; 86706; 86780; 87400; 87811; 90471; 90715; 92610; 93005; 93306; 93880; 97162; 99285; J1650; J2470; J3411; J3475; J3480; J3490; J7030; J7042; J7050; A9270

== ENCOUNTER 2024-09-19 06:48 | Inpatient (IN) | payer OTHER, MEDICARE, SELFPAY ==
[2024-09-19] VITALS (27 sets, daily range): BP systolic 76–163; BP diastolic 39–99; PULSE 88–145; RESP 18–100; TEMP 36.4–39.9; O2SAT 58–100; BMI 24.7
[2024-09-19 08:26] LABS: Collection Type, Urine Clean Catch; Squamous Epithelial Cell,Urine 0 /hpf (0-5)
[2024-09-19 08:33] LABS: Basophils # (Auto) 0.1 Thou/mm3 (0.0-0.2); Basophils % (Auto) 1 % (0-2.5); Eosinophils # (Auto) 0.1 Thou/mm3 (0.0-0.5); Eosinophils % (Auto) 1 % (0-10); Hematocrit 25.9 % (41.0-53.0); Immature Granulocytes % (Auto) 0 % (0-0); Immature Granulocytes Auto 0.04 Thou/mm3 (0.00-0.00); Lymphocytes # (Auto) 0.8 Thou/mm3 (1.0-4.8); Lymphocytes % (Auto) 7 % (10-50); Mean Corpuscular HGB Conc 33.6 g/dl (31.0-37.0); Mean Corpuscular Hemoglobin 32.6 pg (25.0-35.0); Mean Corpuscular Volume 97 fL (80-100); Monocytes # (Auto) 0.9 Thou/mm3 (0.0-0.8); Monocytes % (Auto) 8 % (0-12); Neutrophils # (Auto) 9.5 Thou/mm3 (1.8-7.7); Neutrophils % (Auto) 84 % (37-80); Nucleated Red Blood Cell % 0 /100 WBC (0); Platelet Count 297 Thou/mm3 (140-440); RDW Standard Deviation 45.2 fL (35.1-43.9); Red Blood Count 2.67 Miln/mm3 (4.50-5.90); White Blood Count 11.4 Thou/mm3 (3.8-10.6)
[2024-09-19 08:37] LABS: Hemoglobin 8.7 g/dL (13.5-16.0)
[2024-09-19 08:44] LABS: INR 1.1 (0.9-1.3); Partial Thromboplastin Time 28.8 Seconds (22.0-36.0); Prothrombin Time 11.7 Seconds (9.0-12.2)
[2024-09-19 08:56] LABS: Bacteria,Urine 1+; Bilirubin,Urine Negative (Negative); Blood,Urine 3+ (Negative); Clarity,Urine Turbid (Clear/Hazy); Color,Urine Lt-Red (Lt Yel-Yel); Culture Indicated,Urine Yes; Glucose, Urine Negative (Negative); Ketones,Urine Negative (Negative); Leukocyte Esterase,Urine Positive (Negative); Nitrite,Urine Negative (Negative); Protein,Urine 2+ (Neg - Trace); RBC,Urine 1472 /hpf (0-3); Specific Gravity,Urine 1.012 (1.001-1.035); Urobilinogen,Urine Negative mg/dL (0.0-1.0); WBC,Urine 123 /hpf (0-5)
[2024-09-19 08:58] LABS: Alanine Aminotransferase < 7 U/L (10-49); Albumin, Serum 3.6 gm/dL (3.4-4.8); Albumin/Globulin Ratio 1.6 (1.2-2.2); Alkaline Phosphatase 108 U/L (46-116); Anion Gap 9 (7-16); Aspartate Amino Transferase 11 U/L (0-34); BUN/Creatinine Ratio 16 Ratio (12-20); Bilirubin,Total 0.4 mg/dL (0.3-1.2); Blood Urea Nitrogen 61 mg/dL (9-23); Calcium 9.2 mg/dL (8.3-10.6); Calcium (Corrected) 9.5 mg/dL (8.5-10.1); Chloride 103 mMol/L (98-107); Creatinine (Component) 3.7 mg/dL (0.6-1.3); Estimated Creatinine Clearance 14.9 mL/min (>60); Globulin 2.2 gm/dL (2.3-3.5); Glucose 99 mg/dL (74-106); Osmolality,Calculated 283 (275-295); Potassium 4.8 mMol/L (3.4-5.1); Sodium 133 mMol/L (136-145); Total Protein 5.8 gm/dL (5.7-8.2); eGFR 15 See Note
[2024-09-19] MEDS: SODIUM CHLORIDE 0.9% 500 ML 500 ML 999 ML IV (09:12)
--- NOTE | 2024-09-19 11:35 | PC.NURSE ---
Addendum entered by Lise Brennan CNA 09/19/24 11:38: NURSE CELENA FROM [facility] HOME Original Note: NURSE CALLED FOR UPDATE ON PT INFORMED HIM NURSE WILL CALL BACK FOR UPDATE.
--- NOTE | 2024-09-19 11:39 | XR_ITS ---
Examination: AP chest single view Technique: AP portable semiupright chest single view Exam date and time: September 19, 2024 1153 hrs. Comparison September 13, 2024 Indications: Coughing shortness of breath today Findings: Mild prominence of ventricle No lobar pneumonia No pulmonary edema Prominent osteopenia Impression: No lobar pneumonia identified
--- NOTE | 2024-09-19 11:39 | XR_ITS ---
Examination: CT abdomen and pelvis without contrast. Coronal 3-D reconstructions. Sagittal 2-D reconstructions. Date and time of exam:September 19, 2024 1230 hrs. Comparison April 26, 2024 Indications: Fever ar with penile bleeding status post removal 40 catheter today CTDI: vol (mGy): 15.1 DLP: (mGycm): 759 Technique: Axial images of the abdomen have been obtained, 3 mm slice thickness Intravenous contrast material has not been administered. Low dose protocols were performed. One or more of the following dose reduction techniques were used; automated exposure control, adjustment of the mA and/or KV according to patient size, use of iterative reconstruction technique. Findings: Calcified granuloma right lower lobe Mild right minimal left pleural fluid Mild to moderate enlargement cardiac contour Pericardial effusion measuring 6 mm No visualized liver or splenic lesion Liver is irregular in contour No gallstones No pancreatic mass Bilateral 1 to 2 mm renal calculi, no hydronephrosis or ureteral calculi Heavy abdominal aortic and pelvic vascular calcification No bowel obstruction No pericecal inflammatory change Colonic diverticulosis Urinary bladder wall thickening up to 6 mm Prostatomegaly, AP dimension 4.4 cm Edema perineum near the base of the scrotum axial image 236 Advanced diffuse lumbar degenerative disc disease Impression: Suspect primary hepatocellular disease Bilateral tiny nonobstructing renal calculi, no hydronephrosis or ureteral calculi Urinary bladder wall thickening up to 6 mm, consider cystitis versus early outflow obstruction secondary to prostatomegaly Edema cellulitis in the perineum near the scrotum, consider testicular sonography follow-up
[2024-09-19] MEDS: LEVOFLOXACIN/D5W 500 MG IVPB 500 MG/100 ML BAG 100 MG IV (12:13)
[2024-09-19] MEDS: ACETAMINOPHEN 500 MG TABLET 1000 MG PO (12:13)
[2024-09-19] MEDS: SODIUM CHLORIDE 0.9% 1000 ML 2,000 ML 999 ML IV (12:14)
[2024-09-19 12:17] LABS: Lactate (Lactic Acid) 6.3 mMol/L (0.4-2.0)
[2024-09-19 12:50] LABS: Procalcitonin 2.86 ng/ml (0.0-0.49)
--- NOTE | 2024-09-19 13:08 | XR_ITS ---
Examination: Testicular sonography complete Multiple grayscale sonographic images testes, assessment arterial inflow venous outflow Doppler spectral analysis carful analysis Exam date and time: September 19, 2024 1354 hrs. Indications: Testicular tenderness today, hematuria with the Stephens catheter pulled out Findings: Right testis 3.4 x 1.6 x 2.2 cm Epididymis 14 mm 5 mm epididymal cyst Arterial flow testicle. No testicular mass Left testis 3.4 x 1.6 x 2.9 cm Epididymis 11 mm Arterial flow testicle. No testicular mass Mild bilateral hydroceles Impression: No testicular torsion or testicular mass
[2024-09-19] MEDS: metroNIDAZOLE/NS 500 MG IVPB 500 MG/100 ML BAG 100 MG IV (14:57)
[2024-09-19 15:13] LABS: Reflex Lactate? Y
[2024-09-19 15:25] LABS: Lactic Acid, 3 HR 6.5 mMol/L (0.4-2.0)
--- NOTE | 2024-09-19 15:31 | PD.EDADULT ---
ED General RME/HPI General Chief complaint: Urogenital-Male Stated complaint: HEMORRHAGE Time Seen by Provider: 09/19/24 07:28 Arrival date/time: 09/19/24 06:48 RME / HPI RME / HPI narrative: Patient presented to the emergency department brought in by ambulance from skilled nursing. Patient does have dementia so history is limited. Also very poor hearing. According to the nursing staff, the patient was sent here from the skilled nursing because she yanked out his Stephens and there was some bleeding from his penis this happened this morning. I asked the patient why he did that, he had no clue. He denies any pain. He denies any vomiting or diarrhea. Past medical history significant for dementia, chronic renal insufficiency, chronic atrial fibrillation, syncope, and hard of hearing Related Data Home Medications ?Medication ?Instructions ?Recorded ?Confirmed omeprazole 20 mg capsule,delayed 20 mg PO QDAY 09/07/19 05/30/24 release tamsulosin 0.4 mg capsule 0.4 mg PO QDAY 07/14/23 05/30/24 vitamin B complex-vitamin C-folic 1 tab PO QDAY 07/14/23 05/31/24 acid 0.8 mg tablet (Kayley-Charley) amlodipine 5 mg tablet 5 mg PO QDAY 05/30/24 05/30/24 levocetirizine 5 mg tablet 5 mg PO QPM 05/30/24 05/30/24 Previous Rx's ?Medication ?Instructions ?Recorded ferrous sulfate 325 mg (65 mg 325 mg PO QOD 30 days #15 tabs 09/17/24 iron) tablet,delayed release Allergies Allergy/AdvReac Type Severity Reaction Status Date / Time clonidine Allergy Intermediate Rash Verified 09/06/24 13:51 Penicillins Allergy Intermediate Rash Verified 09/06/24 13:51 Sulfa (Sulfonamide Allergy Mild Itching Verified 09/06/24 13:51 Antibiotics) Review of Systems Review of Systems Narrative Review of Systems: REVIEW OF SYSTEM: GEN:? negative except mentioned in HPI HEENT:? negative except mentioned in HPI NECK:? negative except mentioned in HPI PULM:? negative except mentioned in HPI CARD:? negative except mentioned in HPI GI:? negative except mentioned in HPI MUSCULO/SKET: negative except mentioned in HPI SKIN:? negative except mentioned in HPI NEURO:? negative except mentioned in HPI PSYCH:? negative except mentioned in HPI Past Medical History Past Medical History NEUROLOGIC: Positive Transient Ischemic Attacks (TIA), Dementia and Head Trauma; Negative Neurological Disorders or Seizures CARDIAC: Positive Cardiac Disorders, Coronary Artery Disease, Hypercholesterolemia, Congestive Heart Failure, Edema and Hypertension RESPIRATORY: Positive Asthma and Pneumonia; Negative Chronic Obstructive Pulmonary Disease (COPD), Tuberculosis or Sleep Apnea GASTROINTESTINAL: Positive Gastrointestinal Disorders, Esophageal Varices and Gastroesophageal Reflux Disease GENITOURINARY: Positive Benign Prostatic Hyperplasia; Negative Genitourinary Disorders or Renal Disease MUSCULOSKELETAL: Positive Musculoskeletal Disorders, Arthritis and Fractures ENT: Positive Cataracts, Deafness and Head Trauma ENDOCRINE: Negative Endocrine Disorders, Diabetes Mellitus Type 1 or Diabetes Mellitus Type 2 HEMATOLOGIC: Negative Blood Disorders OTHER HISTORY: Positive Falls, Chicken Pox, Mumps and Cancer; Negative Hospitalization, Autoimmune Disease, Shingles, Blood Transfusions, Blood Transfusion Reaction, Anesthesia Reactions, Chemotherapy, Radiation Therapy or MRSA Family History FAMILY HISTORY: Positive Family Cardiac Disorders and Family Surgery; Negative Family Psychiatric Problems, Family Respiratory Disorders, Family Gastrointestinal Problems, Family Cancer or Family Anesthesia Reaction Surgical History SURGICAL: Positive Cardiac Surgery, Cardiac Catheterization, Angiogram, Tonsillectomy, Abdominal Surgery and Joint Replacement Social History SMOKING STATUS: Former smoker SECOND HAND EXPOSURE: No SUBSTANCE USE: does not use ED Exam Narrative Physical exam: Aaox4. No acute distress O2 saturation is normal Heent:? perra. Eomi. No icteric. Extremely hard of hearing Neck: full rom.? No mass.? No jvd.? No lymphadenopathy Lungs:? clear, full, equal Heart:? s1s2.? Rrr.? No murmur, gallop or rub. Abd: soft, nondistended, nontender, no mass, no rebound or guarding, no flank tender.? No incarcerated? hernia. They appear to be a small fissure in the urethral meatus. Bleeding is under control. Tiny speck of blood clot noted on the skin. Ext:? full rom.? No deformity.? Normal csm. Neuro:?? intact cn2 to 12.? No facial droop.? No slurred speech.? No focal deficit.? Moves all 4ext Skin:? no rash.? No cellulitis.? No lesion.? No laceration Psychiatrical: no suicidal.? No homicidal.? No delusion.? No hallucinating Course Quality Measures none Orders Category Date Time Status Bedside COVID-19 Antigen Test NOW Care 09/19/24 11:[address] abdomen pelvis wo con Stat Exams 09/19/24 11:39 Completed US scrotum Stat Exams 09/19/24 13:08 Completed XR chest 1V portable Stat Exams 09/19/24 11:39 Completed Blood Culture (Lab) Stat Lab 09/19/24 12:00 Received CBC Stat Lab 09/19/24 08:15 Completed CMP [Comprehensive Metabolic Panel] Stat Lab 09/19/24 08:15 Completed Creatine Kinase Stat Lab 09/19/24 12:05 Results Influenza A & B Rapid Panel Stat Lab 09/19/24 11:48 Ordered Lactic Acid [Lactate (Lactic Acid)] Stat Lab 09/19/24 12:05 Completed Lactic Acid, 3 HR Stat Lab 09/19/24 15:20 Completed PT [Prothrombin Time with INR] Stat Lab 09/19/24 08:15 Completed PTT [Partial Thromboplastin Time] Stat Lab 09/19/24 08:15 Completed Procalcitonin Stat Lab 09/19/24 12:05 Results UA, C/S IF [Urinalysis, C/S if Indicated] Stat Lab 09/19/24 08:22 Completed Urine Culture Stat Lab 09/19/24 08:22 Received Acetaminophen Tab [Tylenol ES Tab] Med 09/19/24 11:34 Discontinued 1,000 mg PO X1 ONE Levofloxacin/D5w 500 mg Ivpb [Levaquin Ivpb] Med 09/19/24 11:34 Discontinued 500 mg in 100 ml IV X1 Sodium Chloride 0.9% 1000 ml [Ns] 2,000 ml Med 09/19/24 11:35 Discontinued IV 999 mls/hr Sodium Chloride 0.9% 500 ml [Ns] 500 ml Med 09/19/24 07:46 Discontinued IV 999 mls/hr metroNIDAZOLE/NS 500 MG IVPB [Flagyl 500 mg IV] Med 09/19/24 13:09 Discontinued 500 mg in 100 ml IV X1 Vital Signs Vital signs: Vital Signs Temperature 98.6 F 09/19/24 06:51 Pulse Rate 103 H 09/19/24 06:51 Respiratory Rate 18 09/19/24 06:51 Blood Pressure 131/61 H 09/19/24 06:51 Pulse Oximetry (%) 97 09/19/24 06:51 Oxygen Delivery Method Room Air 09/19/24 06:51 [facility] Patient data External records reviewed:: [facility] previous records Clinical information provided by:: patient Social determinants that could affect healthcare access:: none Patient has the following chronic illnesses:: Hard of hearing How is presenting disease/condition affected by chronic disease/condition?: uneffected by Evaluation data The following diagnostics were reviewed and interpreted by me:: lab results and radiology exam(s) Lab and/or radiology exams considered but not ordered:: None Interpretation Summary: See [facility] Medications Medications considered but not ordered:: None Medication administrations:: Medication Administration History Acetaminophen (Acetaminophen 325 Mg Tablet) 650 mg PO Q6H PRN PRN Reason: Fever >100.4 or Pain 1-3 Stop: 10/19/24 16:16 Hydrocodone Bitart/Acetaminophen (Hydrocodone/Apap 5/325 Tablet) 1 tab PO Q4HR PRN PRN Reason: PAIN SCALE 4-10(Mod-Sev Stop: 09/24/24 16:23 Albuterol/Ipratropium (Albuterol/Ipratropium (Duoneb) Rt Lucila 3 Ml Nebu) 3 ml INH Q4HRRT DOMENICO Stop: 10/19/24 18:59 Ferrous Sulfate (Ferrous Sulf 325 Mg Tablet) 325 mg PO QOD DOMENICO Stop: 10/20/24 16:29 Heparin Sodium (Porcine) (Heparin Sod Inj 5000 Unit/Ml Vial) 5,000 unit SC Q12HR DOMENICO Stop: 10/03/24 20:59 Lactated Ringer's (Lactated Ringers) 1,000 mls @ 999 mls/hr IV .Q1H1M ONE Stop: 09/19/24 17:14 Magnesium Hydroxide (Milk Of Magnesia Susp 30 Ml Udc) 30 ml PO QDAY PRN; Protocol PRN Reason: CONSTIPATION Stop: 10/19/24 16:16 Morphine Sulfate (Morphine Sulf Inj 10 Mg/Ml Vial) 2 mg IVP Q4HR PRN PRN Reason: Breakthrough Pain Stop: 09/24/24 16:16 Ondansetron HCl (Ondansetron Inj 2 Mg/Ml Inj 2 Ml) 4 mg IV Q6H PRN; Protocol PRN Reason: NAUSEA OR VOMITING Stop: 10/19/24 16:16 Pantoprazole Sodium (Pantoprazole 40 Mg Tablet) 40 mg PO QDAY DOMENICO Stop: 10/19/24 16:29 Sennosides (Senna Tablet) 1 tab PO QDAY DOMENICO; Protocol Stop: 10/19/24 16:29 Vitamin B Complex/Vit C/Folic Acid (Vit B12/Vit C/Fa (Nephrovite) Tablet) 1 tab PO DAILY DOMENICO Stop: 10/19/24 16:29 Discontinued Medications Acetaminophen (Acetaminophen 500 Mg Tablet) 1,000 mg PO X1 ONE Stop: 09/19/24 11:35 Last Admin: 09/19/24 12:13 Dose: 1,000 mg Documented By: MS Hydrocodone Bitart/Acetaminophen (Hydrocodone/Apap 10/325 Tab) 1 tab PO Q4H PRN PRN Reason: PAIN SCALE 4-10(Mod-Sev Stop: 09/24/24 16:16 Sodium Chloride (Ns) 500 mls @ 999 mls/hr IV .Q31M ONE Stop: 09/19/24 08:16 Last Infusion: 09/19/24 10:00 Dose: Infused Documented By: Admin: 09/19/24 09:12 Dose: 999 mls/hr Documented By: MS Sodium Chloride (Ns) 2,000 mls @ 999 mls/hr IV .Q2H1M ONE Stop: 09/19/24 13:35 Last Infusion: 09/19/24 15:12 Dose: Infused Documented By: Admin: 09/19/24 12:14 Dose: 999 mls/hr Documented By: MS Levofloxacin/Dextrose (Levaquin Ivpb) 500 mg in 100 mls @ 100 mls/hr IV X1 ONE Stop: 09/19/24 12:33 Last Infusion: 09/19/24 13:53 Dose: Infused Documented By: Admin: 09/19/24 12:13 Dose: 100 mls/hr Documented By: MS Metronidazole (Flagyl 500 Mg Iv) 500 mg in 100 mls @ 100 mls/hr IV X1 ONE Stop: 09/19/24 14:08 Last Admin: 09/19/24 14:57 Dose: 100 mls/hr Documented By: MS Morphine Sulfate (Morphine Sulf Inj 10 Mg/Ml Vial) 2 mg IVP Q4HR PRN PRN Reason: Breakthrough Pain Stop: 09/24/24 16:16 Some of these ordered by me. Some of these ordered by the admitting doctor Consultations Consultation(s) initiated? (list below): No Diagnosis Differential Diagnosis ED Complaint MDM: Fever. Sepsis. Lactic acidosis. UTI. Cystitis. Most likely diagnosis given after review of the tests above:: Fever. Sepsis. Lactic acidosis. UTI. Cystitis. Nonobstructing kidney stones. Admission Indicated Admission indicated?: indicated Explain why admission is indicated or not indicated:: Sepsis Admission Request Was there a request for admission?: Yes Admission Attestation Admission request attestation: Discussed case with [] from Hospitalist service regarding admission. Discussed patients ED course, exam findings, labs, and radiology results. The Hospitalist [agrees,declines] to accept the patient for admission. Disposition Plan Disposition Plan: Admit Medical Decision Making MDM Narrative MDM Narrative: WBC count is 11,000. Hemoglobin of 8.7 which is chronic. Pro time is negative. BUN of 61 creatinine 3.2. COVID and influenza are pending. Lactic acid was 6.3 going up to 6.5. Procalcitonin is 2.86. Which is consistent with sepsis. Urine analysis positive for UTI and some small amount of blood. Chest x-ray reviewed and interpreted by me: Clear lungs. Heart normal. Mediastinum normal. Normal bones. [facility] [address] [place] [address] [facility] Signed Patient: HERBIE JO. Record#: [id number] Birthdate: 1940 Age/Sex: 84 / M Location: [facility] Attending Dr: Ordering Physician: Yoandy Alvarado MD Date of Service: 09/19/24 Procedure(s): US scrotum Accession Number(s): [id number] cc: Andi Fontenot MD; Yoandy Alvarado MD; Jessy Griffiths MD~ Examination: Testicular sonography complete Multiple grayscale sonographic images testes, assessment arterial inflow venous outflow Doppler spectral analysis carful analysis Exam date and time: September 19, 2024 1354 hrs. Indications: Testicular tenderness today, hematuria with the Stephens catheter pulled out Findings: Right testis 3.4 x 1.6 x 2.2 cm Epididymis 14 mm 5 mm epididymal cyst Arterial flow testicle. No testicular mass Left testis 3.4 x 1.6 x 2.9 cm Epididymis 11 mm Arterial flow testicle. No testicular mass Mild bilateral hydroceles Impression: No testicular torsion or testicular mass Dictated By: Andi Fontenot MD Signed By: <Electronically signed by Andi Fontenot MD in OV> 09/19/24 1506 DD/ 1505 TD/TT: 09/19/24 1505 International Marketing Specialist: PAOLA [address] [address] [facility] Signed Patient: HERBIE JO [facility]. Record#: [id number] Birthdate: 1940 Age/Sex: 84 / M Location: [facility] Attending Dr: Ordering Physician: Yoandy Alvarado MD Date of Service: 09/19/24 Procedure(s): XR chest 1V portable Accession Number(s): [id number] cc: Andi Fontenot MD; Yoandy Alvarado MD; Jessy Griffiths MD~ Examination: AP chest single view Technique: AP portable semiupright chest single view Exam date and time: September 19, 2024 1153 hrs. Comparison September 13, 2024 Indications: Coughing shortness of breath today Findings: Mild prominence of ventricle No lobar pneumonia No pulmonary edema Prominent osteopenia Impression: No lobar pneumonia identified Dictated By: Andi Fontenot MD Signed By: <Electronically signed by Andi Fontenot MD in OV> 09/19/24 1254 DD/ 1253 TD/TT: 09/19/[address] [address] [facility] Signed Patient: HERBIE JO [facility]. Record#: [id number] Birthdate: 1940 Age/Sex: 84 / M Location: [facility] Attending Dr: Ordering Physician: Yoandy Alvarado MD Date of Service: 09/19/24 Procedure(s): CT abdomen pelvis wo [facility] Accession Number(s): [id number] cc: Andi Fontenot MD; Yoandy Alvarado MD; Jessy Griffiths MD~ Examination: CT abdomen and pelvis without contrast. Coronal 3-D reconstructions. Sagittal 2-D reconstructions. Date and time of exam:September 19, 2024 1230 hrs. Comparison April 26, 2024 Indications: Fever ar with penile bleeding status post removal 40 catheter today CTDI: vol (mGy): 15.1 DLP: (mGycm): 759 Technique: Axial images of the abdomen have been obtained, 3 mm slice thickness Intravenous contrast material has not been administered. Low dose protocols were performed. One or more of the following dose reduction techniques were used; automated exposure control, adjustment of the mA and/or KV according to patient size, use of iterative reconstruction technique. Findings: Calcified granuloma right lower lobe Mild right minimal left pleural fluid Mild to moderate enlargement cardiac contour Pericardial effusion measuring 6 mm No visualized liver or splenic lesion Liver is irregular in contour No gallstones No pancreatic mass Bilateral 1 to 2 mm renal calculi, no hydronephrosis or ureteral calculi Heavy abdominal aortic and pelvic vascular calcification No bowel obstruction No pericecal inflammatory change Colonic diverticulosis Urinary bladder wall thickening up to 6 mm Prostatomegaly, AP dimension 4.4 cm Edema perineum near the base of the scrotum axial image 236 Advanced diffuse lumbar degenerative disc disease Impression: Suspect primary hepatocellular disease Bilateral tiny nonobstructing renal calculi, no hydronephrosis or ureteral calculi Urinary bladder wall thickening up to 6 mm, consider cystitis versus early outflow obstruction secondary to prostatomegaly Edema cellulitis in the perineum near the scrotum, consider testicular sonography follow-up Dictated By: Andi Fontenot MD Signed By: <Electronically signed by Andi Fontenot MD in OV> DD/ 47 TD/TT: 09/19/241247 International Marketing Specialist: PAOLA During the patient stay in the emergency department he spiked a fever up to 103.8 and the blood pressure dropped down to 80 over palpable. Sepsis alert was immediately called for. The patient received IV fluid, Tylenol and IV antibiotics and culture blood lactic acid procalcitonin was ordered as per the sepsis protocol. Because he was allergic to penicillin I put him on Levaquin and Flagyl IV. Stephens was successfully passed into his bladder. A drain so far 150 mL of clear yellow urine..... Immediately after the Stephens was inserted. 09/19/24 1252 the latest vital signs at 3:25 PM showing a blood pressure of 93/55. Pulse of 103. Respiration of 19. O2 sat of 98% room air. And normal temperature now. 3:45 PM, I spoke to discussed with Dr. Horan, resident of Dr. Sinha, hospitalist on-call. She will present the patient to the attending for admission. 4:50 PM, I saw Dr. Sinha's admission order. Critical care time is approximately 35 minutes excluding any procedure. The high probability of sudden, clinically significant deterioration in the patient?s condition required the highest level of my preparedness to intervene urgently. The services I provided to this patient were to treat and/or prevent clinically significant deterioration. Services included the following: chart data review, reviewing nursing notes and/or old charts, documentation time, [employer] w[employer] consultant collaboration regarding findings and treatment options, medication orders and management, direct patient care, vital sign assessments and ordering, interpreting and reviewing diagnostic studies and lab tests. Aggregate critical care time includes only time during which I was engaged in work directly related to the patient?s care, as described above, whether at bedside or elsewhere in the Emergency Department. It did not include time spent performing other reported procedures or the services of residents, students, nurses or physician assistants. Differential Diagnosis Differential Diagnosis: Fever. Sepsis. Lactic acidosis. UTI. Cystitis. Lab Data 09/19/24 08:15 09/19/24 08:15 Labs: Lab Results 09/19/24 09/19/24 09/19/24 Range/Units 08:15 08:22 12:05 WBC 11.4 H D (3.8-10.6) Thou/mm3 RBC 2.67 L (4.50-5.90) Miln/mm3 Hgb 8.7 L (13.5-16.0) g/dL Hct 25.9 L (41.0-53.0) % MCV 97 (80-100) fL MCH 32.6 (25.0-35.0) pg MCHC 33.6 (31.0-37.0) g/dl RDW Std Deviation 45.2 H (35.1-43.9) fL Plt Count 297 D (140-440) Thou/mm3 Neut % (Auto) 84 H (37-80) % Lymph % (Auto) 7 L (10-50) % [place] % (Auto) 8 (0-12) % Eos % (Auto) 1 (0-10) % Baso % (Auto) 1 (0-2.5) % Neut # (Auto) 9.5 H (1.8-7.7) Thou/mm3 Lymph # (Auto) 0.8 L (1.0-4.8) Thou/mm3 [place] # (Auto) 0.9 H (0.0-0.8) Thou/mm3 Eos # (Auto) 0.1 (0.0-0.5) Thou/mm3 Baso # (Auto) 0.1 (0.0-0.2) Thou/mm3 Immature Gran # (Auto) 0.04 H (0.00-0.00) Thou/mm3 Absolute Nucleated RBC 0.00 (0.00-0.00) Thou/mm3 Immature Gran % 0 (0-0) % Nucleated RBC % 0 (0) /100 WBC PT 11.7 (9.0-12.2) Seconds INR 1.1 (0.9-1.3) APTT 28.8 (22.0-36.0) Seconds Sodium 133 L (136-145) mMol/L Potassium 4.8 D (3.4-5.1) mMol/L Chloride 103 (98-107) mMol/L Carbon Dioxide 21.0 (20.0-31.0) mMol/L Anion Gap 9 (7-16) BUN 61 H (9-23) mg/dL Creatinine 3.7 H (0.6-1.3) mg/dL Estim Creat Clear Calc 14.9 L (>60) mL/min eGFR 15 L (60 - ) See Note BUN/Creatinine Ratio 16 (12-20) Ratio Glucose 99 (74-106) mg/dL Calculated Osmolality 283 (275-295) Lactic Acid 6.3 H* (0.4-2.0) mMol/L Calcium 9.2 (8.3-10.6) mg/dL Corrected Calcium 9.5 (8.5-10.1) mg/dL Total Bilirubin 0.4 (0.3-1.2) mg/dL AST 11 (0-34) U/L ALT < 7 L (10-49) U/L Alkaline Phosphatase 108 (46-116) U/L Total Protein 5.8 (5.7-8.2) gm/dL Albumin 3.6 (3.4-4.8) gm/dL Globulin 2.2 L (2.3-3.5) gm/dL Albumin/Globulin Ratio 1.6 (1.2-2.2) Procalcitonin 2.86 H (0.0-0.49) ng/ml Ur Collection Type Clean Catch Urine Color Lt-Red A (Lt Yel-Yel) Urine Clarity Turbid A (Clear/Hazy) Urine pH 6.0 (5.0-7.0) Ur Specific [place] 1.012 (1.001-1.035) Urine Protein 2+ A (Neg - Trace) Urine Glucose (UA) Negative (Negative) Urine Ketones Negative (Negative) Urine Blood 3+ A (Negative) Urine Nitrite Negative (Negative) Urine Bilirubin Negative (Negative) Urine Urobilinogen (Auto) Negative (0.0-1.0) mg/dL Ur Leukocyte Esterase Positive (Negative) Urine RBC 1472 H (0-3) /hpf Urine WBC 123 H (0-5) /hpf Ur Squamous Epith Cells 0 (0-5) /hpf Urine Bacteria 1+ A (None) Ur Culture Indicated? Yes 09/19/24 Range/Units 15:20 WBC (3.8-10.6) Thou/mm3 RBC (4.50-5.90) Miln/mm3 Hgb (13.5-16.0) g/dL Hct (41.0-53.0) % MCV (80-100) fL MCH (25.0-35.0) pg MCHC (31.0-37.0) g/dl RDW Std Deviation (35.1-43.9) fL Plt Count (140-440) Thou/mm3 Neut % (Auto) (37-80) % Lymph % (Auto) (10-50) % [place] % (Auto) (0-12) % Eos % (Auto) (0-10) % Baso % (Auto) (0-2.5) % Neut # (Auto) (1.8-7.7) Thou/mm3 Lymph # (Auto) (1.0-4.8) Thou/mm3 [place] # (Auto) (0.0-0.8) Thou/mm3 Eos # (Auto) (0.0-0.5) Thou/mm3 Baso # (Auto) (0.0-0.2) Thou/mm3 Immature Gran # (Auto) (0.00-0.00) Thou/mm3 Absolute Nucleated RBC (0.00-0.00) Thou/mm3 Immature Gran % (0-0) % Nucleated RBC % (0) /100 WBC PT (9.0-12.2) Seconds INR (0.9-1.3) APTT (22.0-36.0) Seconds Sodium (136-145) mMol/L Potassium (3.4-5.1) mMol/L Chloride (98-107) mMol/L Carbon Dioxide (20.0-31.0) mMol/L Anion Gap (7-16) BUN (9-23) mg/dL Creatinine (0.6-1.3) mg/dL Estim Creat Clear Calc (>60) mL/min eGFR (60 - ) See Note BUN/Creatinine Ratio (12-20) Ratio Glucose (74-106) mg/dL Calculated Osmolality (275-295) Lactic Acid 6.5 H* (0.4-2.0) mMol/L Calcium (8.3-10.6) mg/dL Corrected Calcium (8.5-10.1) mg/dL Total Bilirubin (0.3-1.2) mg/dL AST (0-34) U/L ALT (10-49) U/L Alkaline Phosphatase (46-116) U/L Total Protein (5.7-8.2) gm/dL Albumin (3.4-4.8) gm/dL Globulin (2.3-3.5) gm/dL Albumin/Globulin Ratio (1.2-2.2) Procalcitonin (0.0-0.49) ng/ml Ur Collection Type Urine Color (Lt Yel-Yel) Urine Clarity (Clear/Hazy) Urine pH (5.0-7.0) Ur Specific [place] (1.001-1.035) Urine Protein (Neg - Trace) Urine Glucose (UA) (Negative) Urine Ketones (Negative) Urine Blood (Negative) Urine Nitrite (Negative) Urine Bilirubin (Negative) Urine Urobilinogen (Auto) (0.0-1.0) mg/dL Ur Leukocyte Esterase (Negative) Urine RBC (0-3) /hpf Urine WBC (0-5) /hpf Ur Squamous Epith Cells (0-5) /hpf Urine Bacteria (None) Ur Culture Indicated? Discharge Plan Plan Patient Disposition: Admit Acute Care w/in Hospital Disposition Comment: Stable for admit Problem List Clinical Impression: Sepsis, Chronic kidney insufficiency, Urinary tract infection, Cystitis
--- NOTE | 2024-09-19 16:35 | ESHP_ITS ---
<Statement entered by David Carrington MD - 09/19/24 17:13> This patient 84-year-old male with past medical history of past medical history of hypertension, HFpEF EF 55 to 60%, CKD stage IVfollows up with Dr. 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 He is very hard of hearing. Per nursing staff patient was sent from residential because she cannot out his Stephens catheter and there was bleeding around the penis. He was also found to have fever/chills soft blood pressure.In the ED, patient was found hypotensive tachycardic febrile with fever of 103 and saturating well on room air. Sepsis alert was initiated. Patient received 2.5 L bolus of NS and Levaquin with Flagyl was started given patient is allergic to penicillin. Labs revealed leukocytosis, hemoglobin stable at 8.7. Chemistry panel showed sodium at 133. Kidney functions consistent with CKD stage IV with BUN 61 and creatinine 3.7. Patient still makes good urine output. Lactic acid around 6.5. Procalcitonin elevated at 2.86. UA was turbid with proteinuria, blood, RBCs with pyuria and bacteria. CT abdominal pelvis showed cellulitis in the perineum near scrotum. Bilateral tiny nonobstructing renal calculi. Urinary bladder wall thickening up to 6 mm. Chest x-ray was negative. Scrotal ultrasound was negative. Patient was found to have chronic wounds on his both lower extremities therefore wound care as ordered. We ordered another 1 L bolus of NS as patient appears fluid responsive and was thirsty. Examination showed no abdominal tenderness, tenderness elicited on groin examination with mild penile swelling with Stephens catheter inserted. No blood/hematuria seen on Stephens catheter. Will follow-up on the lactic acid levels. Patient appears clinically dehydrated with dry mucous membranes. Distal pulses were palpable. Patient is admitted for sepsis likely due to urinary tract infection. Will follow-up on the blood cultures, urine cultures and continue with IV antibiotic therapy. Home medications from facility were reconciled. General Internist, has been consulted for further recommendations. All labs and orders were reviewed. I saw and examined the patient, and I agree with current management stated by Dr Gopi MD,PGY1. Plan of care was discussed with the attending physician and resident physician. Disclaimer: Despite multiple revisions, due to the dictation software being used, the document bellow may not be free of grammatical errors including phonetic/typographic errors. However, this does not deter from our commitment to providing health care in the patient's best interest in mind. Dr. Charissa MD, PGY 2 Documentation for date of: 09/19/24 HPI History of Present Illness Chief complaint: Hematuria History of present illness: HPI: Patient has dementia at baseline. Majority of history obtained from chart review. Patient is an 84-year-old male with a past medical history significant for essential hypertension, CKD stage V, BPH, dementia and chronic normocytic anemia. Patient was brought in by ambulance today from [facility] due to chief complaint of removing his Stephens catheter and subsequent hematuria. Upon questioning patient uncertain of why he was brought into the hospital. Patient denies any chest pain/pressure, palpitations, SOB, dizziness. Patient also denies any nausea/vomiting or diarrhea as well as cough, fever or sick contacts. Also denies recent travel. Of note patient was recently hospitalized from 09/13/2024 - 09/17/2024. He was treated with fluid resuscitation for dehydration and also offered the option of hemodialysis by nephrology. He refused hemodialysis. ED course: BP 93/55, HR 103, temp 103.8 F, SpO2 98% on room air. Labs were significant for Hb 8.7, HCT 25.9, BUN 61, CR 3.7, K4.8, lactic acid 6.5, Pro-Bennett 2.86. Urinalysis significant for turbid appearance, 2+ protein, 3+ blood, positive leukocyte esterase with 123 WBC and 1+ bacteria. On imaging Abdo/pelvis CT significant for right lung lower lobe calcified granuloma, minimal right pleural fluid, irregular contour to the liver, heavy abdominal aortic and pelvic vascular calcification, B/L tiny nonobstructing renal calculi, urinary bladder thickening and cellulitis in the perineum near the scrotum. Chest x-ray was negative for pulmonary edema, consolidation or pleural effusion. Scrotum ultrasound was only significant for mild bilateral hydroceles. Negative for torsion or mass. Patient received 2.5 L normal saline IVF bolus, levofloxacin 500 Mg IV x 1, metronidazole 500 Mg IV x 1. Patient will be admitted to the floor for workup and management of sepsis secondary to UTI. Nephrology was consulted for CKD stage V. Review of Systems Review of Systems ROS Unobtainable: unobtainable due to mental status Past Medical History Past Medical History Comments PMH COMMENT: Past medical history: ? Dementia ? Essential hypertension ? CKD stage V ? Chronic normocytic anemia ?? Chronic systolic congestive heart failure with preserved ejection fraction - BPH Medication list: ? Amlodipine ? Ferrous sulfate ? Levocetirizine ? Omeprazole ? Renal VTE Past surgical history: - H/O of hernia repair Social history: Patient lives alone, patient reports drinking 2-3 beers a night and a glass of wine, denies other drug use, reports occasional cigar use Exam Vital Signs Temp Pulse Resp BP Pulse Ox O2 Del Method 98.2 F 103 H 19 93/55 L 98 Room Air 09/19/24 13:53 09/19/24 15:55 09/19/24 15:55 09/19/24 15:55 09/19/24 15:55 09/19/24 15:55 Narrative Exam Constitutional Alert, oriented x 2 [person, place] and comfortable. In the ED he received elderly male, cachectic, decreased skin turgor HEENT Vision grossly intact. Patent nares. Trachea midline Respiratory Chest normal on inspection and clear auscultation bilaterally Cardiovascular S1 and S2 audible, RRR. No murmurs carotid bruit. No gross JVD. Abdominal Soft and non tender to palpation in all quadrants. BS +. BRO unable to be completed due to patient experiencing discomfort Genitourinary No bladder tenderness, no flank pain. Normal to palpation Musculoskeletal Extremities tone within normal limits. No LE edema. Neurological CN II - XII grossly intact. Extremity motor and sensation grossly intact. Skin Both feet have dry cracked skin with multiple ulcers in different stages of healing. Psychiatric Patient has good affect, is cooperative Results: Labs 09/20/24 19:10 09/20/24 12:35 Labs: Short CBC 09/19/24 Range/Units 08:15 WBC 11.4 H D (3.8-10.6) Thou/mm3 Hgb 8.7 L (13.5-16.0) g/dL Hct 25.9 L (41.0-53.0) % Plt Count 297 D (140-440) Thou/mm3 BMP 09/19/24 08:15 Sodium 133 L Potassium 4.8 D Chloride 103 Carbon Dioxide 21.0 BUN 61 H Creatinine 3.7 H Glucose 99 Calcium 9.2 Liver Function 09/19/24 Range/Units 08:15 Total Bilirubin 0.4 (0.3-1.2) mg/dL AST 11 (0-34) U/L ALT < 7 L (10-49) U/L Alkaline Phosphatase 108 (46-116) U/L Albumin 3.6 (3.4-4.8) gm/dL Urine 09/19/24 Range/Units 08:22 Urine Color Lt-Red A (Lt Yel-Yel) Urine Clarity Turbid A (Clear/Hazy) Urine pH 6.0 (5.0-7.0) Ur Specific [place] 1.012 (1.001-1.035) Urine Protein 2+ A (Neg - Trace) Urine Glucose (UA) Negative (Negative) Quality Measures Quality Measures VTE prophylaxis Advance care planning discussed with:: other Medications Home Medications and Allergies Home Medications ?Medication ?Instructions ?Recorded ?Confirmed ?Type omeprazole 20 mg capsule,delayed 20 mg PO QDAY 09/07/19 05/30/24 History release tamsulosin 0.4 mg capsule 0.4 mg PO QDAY 07/14/23 05/30/24 History vitamin B complex-vitamin C-folic 1 tab PO QDAY 07/14/23 05/31/24 History acid 0.8 mg tablet (Kayley-Charley) amlodipine 5 mg tablet 5 mg PO QDAY 05/30/24 05/30/24 History levocetirizine 5 mg tablet 5 mg PO QPM 05/30/24 05/30/24 History Allergies Allergy/AdvReac Type Severity Reaction Status Date / Time clonidine Allergy Intermediate Rash Verified 09/06/24 13:51 Penicillins Allergy Intermediate Rash Verified 09/06/24 13:51 Sulfa (Sulfonamide Allergy Mild Itching Verified 09/06/24 13:51 Antibiotics) Visit Medications Acetaminophen (Acetaminophen 325 Mg Tablet) 650 mg PO Q6H PRN PRN Reason: Fever >100.4 or Pain 1-3 Stop: 10/19/24 16:16 Hydrocodone Bitart/Acetaminophen (Hydrocodone/Apap 5/325 Tablet) 1 tab PO Q4HR PRN PRN Reason: PAIN SCALE 4-10(Mod-Sev Stop: 09/24/24 16:23 Albuterol/Ipratropium (Albuterol/Ipratropium (Duoneb) Rt Lucila 3 Ml Nebu) 3 ml INH Q4HRRT [facility] Stop: 10/19/24 18:59 Ferrous Sulfate (Ferrous Sulf 325 Mg Tablet) 325 mg PO QOD [facility] Stop: 10/20/24 16:29 Heparin Sodium (Porcine) (Heparin Sod Inj 5000 Unit/Ml Vial) 5,000 unit SC Q12HR [facility] Stop: 10/03/24 20:59 Lactated Ringer's (Lactated Ringers) 1,000 mls @ 999 mls/hr IV .Q1H1M ONE Stop: 09/19/24 17:14 Magnesium Hydroxide (Milk Of Magnesia Susp 30 Ml Udc) 30 ml PO QDAY PRN; Protocol PRN Reason: CONSTIPATION Stop: 10/19/24 16:16 Morphine Sulfate (Morphine Sulf Inj 10 Mg/Ml Vial) 2 mg IVP Q4HR PRN PRN Reason: Breakthrough Pain Stop: 09/24/24 16:16 Ondansetron HCl (Ondansetron Inj 2 Mg/Ml Inj 2 Ml) 4 mg IV Q6H PRN; Protocol PRN Reason: NAUSEA OR VOMITING Stop: 10/19/24 16:16 Pantoprazole Sodium (Pantoprazole 40 Mg Tablet) 40 mg PO QDAY [facility] Stop: 10/19/24 16:29 Sennosides (Senna Tablet) 1 tab PO QDAY [facility]; Protocol Stop: 10/19/24 16:29 Vitamin B Complex/Vit C/Folic Acid (Vit B12/Vit C/Fa (Nephrovite) Tablet) 1 tab PO DAILY [facility] Stop: 10/19/24 16:29 Discontinued Medications Acetaminophen (Acetaminophen 500 Mg Tablet) 1,000 mg PO X1 ONE Stop: 09/19/24 11:35 Last Admin: 09/19/24 12:13 Dose: 1,000 mg Hydrocodone Bitart/Acetaminophen (Hydrocodone/Apap 10/325 Tab) 1 tab PO Q4H PRN PRN Reason: PAIN SCALE 4-10(Mod-Sev Stop: 09/24/24 16:16 Sodium Chloride (Ns) 500 mls @ 999 mls/hr IV .Q31M ONE Stop: 09/19/24 08:16 Last Infusion: 09/19/24 10:00 Dose: Infused Sodium Chloride (Ns) 2,000 mls @ 999 mls/hr IV .Q2H1M ONE Stop: 09/19/24 13:35 Last Infusion: 09/19/24 15:12 Dose: Infused Levofloxacin/Dextrose (Levaquin Ivpb) 500 mg in 100 mls @ 100 mls/hr IV X1 ONE Stop: 09/19/24 12:33 Last Infusion: 09/19/24 13:53 Dose: Infused Metronidazole (Flagyl 500 Mg Iv) 500 mg in 100 mls @ 100 mls/hr IV X1 ONE Stop: 09/19/24 14:08 Last Admin: 09/19/24 14:57 Dose: 100 mls/hr Morphine Sulfate (Morphine Sulf Inj 10 Mg/Ml Vial) 2 mg IVP Q4HR PRN PRN Reason: Breakthrough Pain Stop: 09/24/24 16:16 Assessment & Plan Plan Patient has dementia at baseline. Majority of history obtained from chart review. Patient is an 84-year-old male with a past medical history significant for essential hypertension, CKD stage V, BPH, dementia and chronic normocytic anemia. Patient was brought in by ambulance today from [facility] due to chief complaint of removing his Stephens catheter and subsequent hematuria. Upon questioning patient uncertain of why he was brought into the hospital. Patient will be admitted to the floor for workup and management of sepsis secondary to UTI. Nephrology was consulted for CKD stage V. 1. Sepsis secondary to UTI 2. Lactic acidosis 3. Possible perineal cellulitis On admission patient met SIRS criteria 2/4 for HR 103, temp 103.8 Source of infection UTI. Urinalysis significant for turbid appearance, 2+ protein, 3+ blood, positive leukocyte esterase with 123 WBC and 1+ bacteria. On imaging Abdo/pelvis CT significant for right lung lower lobe calcified granuloma, minimal right pleural fluid, irregular contour to the liver, heavy abdominal aortic and pelvic vascular calcification, B/L tiny nonobstructing renal calculi, urinary bladder thickening and cellulitis in the perineum near the scrotum. Chest x-ray was negative for pulmonary edema, consolidation or pleural effusion. Scrotum ultrasound was only significant for mild bilateral hydroceles. Negative for torsion or mass. Lactic acid initially elevated at 6.3 and up trended to 6.5. Most likely secondary to sepsis and organ ischemia. Patient received 2.5 L normal saline IVF bolus, levofloxacin 500 Mg IV x 1, metronidazole 500 Mg IV x 1. Plan: ? Repeat lactic acid at 10 PM ? Give levofloxacin 250 Mg IV x 1 ? From 09/21 start levofloxacin 500 Mg IV every 48 hourly [renally dosed] ? Start metronidazole 500 Mg IV Q8 hourly to cover for possible perineal cellulitis. ? 1L lactated Ringer bolus for BP 93/55 [MAP 67] 4. CKD stage V EGFR of 15 On previous admission patient was offered the option of hemodialysis by nephrology, he refused. Plan: ? Renally dose medication ? Avoid nephrotoxic agents ? Nephrology, Dr. Spence consulted. Appreciate recommendations 5. Chronic normocytic anemia On admission Hb 8.7. From previous admission patient had full anemia workup which was significant for iron deficiency anemia. Home medication ferrous sulfate 325 Mg p.o. every other day. Plan: ? Restart home medication ferrous sulfate 325 Mg p.o. q. every other day 6. BPH Patient's home medication tamsulosin 0.4 Mg p.o. at night Plan: ? Hold home medication for now in light of hypotension 7. Dementia 8. Essential hypertension Patient's home medication amlodipine 5 Mg p.o. daily Plan: ? Hold home medication for now in light of hypotension. Health maintenance: Disposition: Iv antibiotics for Sepsis Diet: Cardiac and renal Lines: pIVs GI Prophylaxis: Pantoprazole Thrombo Prophylaxis: Heparin Code status: FULL CODE Plan of care discussed with Attending Dr. Sinha and PGY2 Dr. Charissa Nguyễn MD PGY 1 Attending Provider Attestation/Addendum I, Bushra Sinha, DO, attest that I was physically present for the fregoso portions of the service and evaluated the patient with the resident and I reviewed and discussed the case with the resident and agree with the resident's findings and plans of care as documented above Patient is an 84-year-old male with past medical history of hypertension, HFpEF, CKD stage V and frequent falls who was brought to ED from the alf facility after he had removed his Stephens catheter on his own. Patient had mild bleeding at the tip of his penis. Stephens catheter was replaced in ED and urine output was clear. However, patient was noted to have a fever of 103.8 following placement of Stephens catheter. Patient was recently discharged from facility 2 days ago after he was admitted for dehydration. Patient appears to be at his baseline ANO x 2 at this time. On last admission, patient refused being placed on dialysis. Blood pressure is 93/55 and heart rate of 103. In the ED, patient stated he had no acute complaints. He had some pain in his lower abdomen otherwise. A CT abdomen pelvis was done showing a right lower lung calcified granuloma, irregular contour of the liver, aortic and pelvic vascular calcification, bilateral nonobstructing renal calculi and urinary bladder thickening. There is cellulitis in the perineum and near the scrotum. On physical exam, patient had no pain to palpation of the perennial region or his scrotum. It did not appear erythematous or edematous either. Patient had some pain at the site of his Stephens catheter. Penis appeared to be slightly swollen with some blood at the tip. Patient otherwise stated he was feeling fine. Lactic acid was noted to be 6.3. Patient was given IV fluid boluses. Will start him on Levaquin and Flagyl due to concern for possible cellulitis of the perineum. Will order blood cultures and urine cultures as UA appears to be concerning for UTI. Patient is allergic to penicillins. Lactic acidosis may also be secondary to dehydration. Patient appeared to have poor hygiene in bilateral lower extremities had good bilateral dorsalis pedis pulses of 2 out of 4, but covered in skin and dirt. Will consult nephrology as well due to poor renal function. Will continue to monitor volume status. Will admit to med/telemetry for further workup and medical management of possible sepsis secondary to cellulitis versus UTI.
[2024-09-19 17:02] LABS: Creatine Kinase 34 U/L (34-171)
[2024-09-19] MEDS: SENNA TABLET 1 TAB PO (17:06)
[2024-09-19] MEDS: RINGERS LACTATED 1000 ML 1,000 ML 999 ML IV (17:06)
[2024-09-19] MEDS: PANTOPRAZOLE 40 MG TABLET PO (17:06)
[2024-09-19 18:01] LABS: Lactate (Lactic Acid) 3.9 mMol/L (0.4-2.0)
[2024-09-19] MEDS: VIT B12/Vit C/FA (Nephrovite) TABLET 1 TAB PO (19:00)
[2024-09-19] MEDS: ALBUTEROL/IPRATROPIUM (Duoneb) RT SOL 3 ML NEBU INH (19:26)
[2024-09-19] MEDS: LEVOFLOXACIN/D5W 250MG IVPB 250 MG/50 ML BAG 50 MG IV (19:37)
[2024-09-19] MEDS: HYDROcodone/APAP 5/325 TABLET 1 TAB PO (20:29)
[2024-09-19 20:59] LABS: Reflex Lactate? Y
--- NOTE | 2024-09-19 22:05 | PC.NURSE ---
Patient is confused. DANIEL Cardoso called [facility] and spoke to Marcia to get assistance in answering admission questions.
--- NOTE | 2024-09-19 22:15 | PC.NURSE ---
Patient refused MRSA swab and RSV swab. Patient said keep my goddamn nose alone .
[2024-09-19] MEDS: metroNIDAZOLE/NS 500 MG IVPB 500 MG/100 ML BAG 200 MG IV (22:33)
[2024-09-19] MEDS: HEPARIN SOD INJ 5000 UNIT/ML VIAL SC (22:37)
[2024-09-19 23:19] LABS: Lactic Acid, 3 HR 3.3 mMol/L (0.4-2.0)
[2024-09-20] VITALS (14 sets, daily range): BP systolic 88–118; BP diastolic 48–68; PULSE 79–98; RESP 18–20; TEMP 36.3–36.7; O2SAT 92–98; BMI 24.8
[2024-09-20] MEDS: HYDROcodone/APAP 5/325 TABLET 1 TAB PO ×3 (01:39→12:35)
--- NOTE | 2024-09-20 03:14 | PC.NURSE ---
Addendum entered by Walker Rangel RN 09/20/24 03:46: DANIEL Cardoso reminded Dr. Balderas about placing the order. Dr. Balderas will place the order. Original Note: Patient is confused and continues to be anxious and yelling. RN called hospitalists to see if they can order medication to help the patient relax. Dr. Balderas said he will put an order.
[2024-09-20] MEDS: DiphenhydrAMINE INJ 50 MG/ML VIAL 25 MG IV ×3 (03:58→12:53)
[2024-09-20] MEDS: metroNIDAZOLE/NS 500 MG IVPB 500 MG/100 ML BAG 200 MG IV (05:05)
[2024-09-20] MEDS: HYDROMORPHONE HCL 2 MG TABLET 1 MG PO (05:39)
[2024-09-20 06:23] LABS: Basophils # (Auto) 0.1 Thou/mm3 (0.0-0.2); Basophils % (Auto) 0 % (0-2.5); Eosinophils % (Auto) 0 % (0-10); Immature Granulocytes % (Auto) 5 % (0-0); Immature Granulocytes Auto 2.01 Thou/mm3 (0.00-0.00); Lymphocytes # (Auto) 0.2 Thou/mm3 (1.0-4.8); Lymphocytes % (Auto) 1 % (10-50); Mean Corpuscular Hemoglobin 33.5 pg (25.0-35.0); Mean Corpuscular Volume 96 fL (80-100); Monocytes # (Auto) 0.6 Thou/mm3 (0.0-0.8); Monocytes % (Auto) 2 % (0-12); Neutrophils % (Auto) 92 % (37-80); Nucleated Red Blood Cell % 0 /100 WBC (0); Platelet Count 155 Thou/mm3 (140-440); RDW Standard Deviation 44.4 fL (35.1-43.9); Red Blood Count 2.06 Miln/mm3 (4.50-5.90)
[2024-09-20 06:34] LABS: Hemoglobin 6.9 g/dL (13.5-16.0); White Blood Count 36.9 Thou/mm3 (3.8-10.6)
[2024-09-20 06:35] LABS: Hematocrit 19.7 % (41.0-53.0)
--- NOTE | 2024-09-20 06:36 | PC.NURSE ---
Shon from lab called from critical labs of: WBC: 37,000 Hgb: 6.9 HCT: 19.7 Dr. Chawla [phone] notified.
[2024-09-20 06:50] LABS: Alanine Aminotransferase 19 U/L (10-49); Albumin, Serum 2.9 gm/dL (3.4-4.8); Albumin/Globulin Ratio 1.7 (1.2-2.2); Alkaline Phosphatase 122 U/L (46-116); Anion Gap 13 (7-16); Aspartate Amino Transferase 76 U/L (0-34); BUN/Creatinine Ratio 16 Ratio (12-20); Bilirubin,Total 0.3 mg/dL (0.3-1.2); Blood Urea Nitrogen 65 mg/dL (9-23); Calcium 8.3 mg/dL (8.3-10.6); Calcium (Corrected) 9.2 mg/dL (8.5-10.1); Chloride 103 mMol/L (98-107); Creatinine (Component) 4.1 mg/dL (0.6-1.3); Estimated Creatinine Clearance 13.4 mL/min (>60); Globulin 1.7 gm/dL (2.3-3.5); Glucose 65 mg/dL (74-106); Osmolality,Calculated 279 (275-295); Phosphorous 3.6 mg/dL (2.4-5.1); Potassium 4.2 mMol/L (3.4-5.1); Sodium 131 mMol/L (136-145); Total Protein 4.6 gm/dL (5.7-8.2); eGFR 14 See Note
--- NOTE | 2024-09-20 07:12 | PC.NURSE ---
DANIEL Cardoso attempted to contact hospitalist regarding critical creatinine of 4.1 and critical GFR of 14. DANIEL Cardoso notified day nurse to contact day team regarding the critical labs.
[2024-09-20 07:45] LABS: Basophils # (Auto) 0.1 Thou/mm3 (0.0-0.2); Basophils % (Auto) 0 % (0-2.5); Eosinophils % (Auto) 0 % (0-10); Hematocrit 20.6 % (41.0-53.0); Immature Granulocytes % (Auto) 6 % (0-0); Immature Granulocytes Auto 2.41 Thou/mm3 (0.00-0.00); Lymphocytes # (Auto) 0.2 Thou/mm3 (1.0-4.8); Lymphocytes % (Auto) 1 % (10-50); Mean Corpuscular Hemoglobin 33.3 pg (25.0-35.0); Mean Corpuscular Volume 98 fL (80-100); Monocytes # (Auto) 0.9 Thou/mm3 (0.0-0.8); Monocytes % (Auto) 2 % (0-12); Neutrophils # (Auto) 35.9 Thou/mm3 (1.8-7.7); Neutrophils % (Auto) 91 % (37-80); Nucleated Red Blood Cell % 0 /100 WBC (0); Platelet Count 168 Thou/mm3 (140-440); RDW Standard Deviation 46.1 fL (35.1-43.9)
[2024-09-20 07:48] LABS: White Blood Count 39.5 Thou/mm3 (3.8-10.6)
[2024-09-20 08:22] LABS: Path Review Blood Smear Sent to Pathologist
[2024-09-20] MEDS: DEXTROSE 50%-WATER INJ 50 ML SYRINGE IV (08:25)
--- NOTE | 2024-09-20 08:29 | XR_ITS ---
Examination: CT brain head without contrast. 2-D sagittal coronal reconstructions Date and time of exam:September 20, 2024 1115 hours Comparison September 13, 2024 INDICATIONS: Altered mental status today, patient fell September 13, 2024 injury to the head CTDI: vol (mGy):53.7 DLP: (mGycm):1138 Technique: Multiple CT axial sections of the brain have been obtained, 5 mm slice thickness. Contrast has not been administered. 2-D sagittal, coronal reconstructions have been obtained Low dose protocols were performed. One or more of the following dose reduction techniques were used; automated exposure control, adjustment of the mA and/or KV according to patient size, use of iterative reconstruction technique. Findings: No significant ventricular enlargement. 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 No mass effect or midline shift Basal cisterns are not remarkable. Fourth ventricle is midline. Cranial vault intact. Impression: Negative for acute hemorrhage, mass effect or midline shift Advise clinical correlation and follow-up accordingly
[2024-09-20] MEDS: Magnesium Sulfate 4 GM Ivpb 4 GM/50 ML BAG IV (08:33)
[2024-09-20] MEDS: SODIUM CHLORIDE 0.9% 1000 ML 1,000 ML 100 ML IV (08:33)
[2024-09-20] MEDS: ALBUMIN HUMAN 25% IVPB 25 GM/100 ML BTL IV (09:01)
[2024-09-20] MEDS: SODIUM BICARB INJ 8.4% 1 mEq/ML VIAL 50 ML 50 MEQ IV (09:01)
--- NOTE | 2024-09-20 09:03 | XR_ITS ---
Examination: CT chest, without intravenous contrast. CT abdomen, without intravenous contrast. CT pelvis, without intravenous contrast. 2-D sagittal and coronal reconstructions. 3-D reconstructions. Date and time of exam:September 20, [address] abdomen pelvis September 19, 2024 INDICATIONS: Altered mental status, leukocytosis, unknown source CTDI vol (mgy) 13.1 DLP (MGycm)993 Technique: Multiple CT images, 3.0 mm slice thickness, obtained chest, abdomen, pelvis, with the high-resolution 64 slice scanner.. Sagittal and coronal 2-D reconstructions are obtained. 3-D reconstructions Low dose protocols were performed. One or more of the following dose reduction techniques were used; automated exposure control, adjustment of the mA and/or KV according to patient size, use of iterative reconstruction technique. Findings: 8 mm calcified right thyroid nodule Heavy thoracic aortic calcification, AP dimension ascending thoracic aorta 4.7 cm Heavy calcification left main left anterior descending left circumflex right coronary arteries Mild enlargement cardiac contour with prominent vascular congestion Bibasilar pneumonia with small pleural effusions Trace pericardial thickening No visualized liver or splenic lesion Gallbladder wall appears mildly thickened No pancreatic mass Atrophic kidneys with bilateral 1 to 3 mm renal calculi, no hydronephrosis Aorta normal size Significantly fluid distended small bowel loops in the lower abdomen No free air Colonic diverticulosis, no diverticulitis Urinary bladder wall thickening up to 10 mm Transverse prostate dimension 4 cm Urinary Stephens catheter present Small bowel present in the left inguinal hernia without definite incarceration Severe osteopenia Diffuse advanced lumbar degenerative disc disease IMPRESSION: Aneurysmal dilatation ascending thoracic aorta 8mm calcified right thyroid nodule Heavy coronary artery calcification Bibasilar pneumonia Recommend hepatobiliary sonography to exclude acute cholecystitis Significantly fluid distended small bowel loops, consider early small bowel obstruction, consider Gastrografin small bowel series follow-up Small bowel present in the left inguinal hernia without definite incarceration Urinary bladder wall thickening up to 10 mm, differential would include cystitis
[2024-09-20 10:03] LABS: Base Excess, Venous -8 (-3-3); O2 Saturation, Venous 89 % (96-97); PCO2, Venous 25 mmHg (36-56); PO2, Venous 52 mmHg (15-58); pH, Venous 7.41 (7.33-7.66)
[2024-09-20 10:03] LABS: Lactate (Lactic Acid) 3.8 mMol/L (0.4-2.0)
[2024-09-20 10:22] LABS: Ammonia < 10 uMol/L (11-32)
[2024-09-20 10:33] LABS: Free T4 (Free Thyroxine) 0.96 ng/dL (0.89-1.76); Magnesium 1.1 mg/dL (1.6-2.6); Thyroid Stimulating Hormone 4.98 uIU/mL (0.55-4.78)
--- NOTE | 2024-09-20 10:38 | PD.RESCONSUL ---
HPI Data of Consult Patient: known to practice within the last 3 years Requesting Physician: Bushra Sinha DO Admitting Provider: Bushra Sinha DO Attending Provider: Bushra Sinha DO Primary Care Provider: Regis Griffiths MD Consult Narrative Reason for consult: MORIAH/CKD History of present illness: 84-year-old male with past medical history of CAD (s/p 02/23 stent placement), HFpEF (EF 65-70%), CKD stage IV, hypertension, esophageal varices, BPH, presbycusis who presented to the emergency department after AMS fom SNF. Patient was discharge a few days ago. In the SNF they noted blood tinged urine and AMS. Was brought to the ED for further eval, found to have sepsis secondary to complicated UTI. On previous admission patinet declined dialysis. Patient has been complaining of weakness. Stated that he has been drinking of water in the last few days. Denies any chest pain or shortness of breath. Nephrology consulted due to acute renal failure in the setting of CKD stage G4. cc:: cc: Bushra Sinha DO Review of Systems Review of Systems Systems Reviewed: All systems reviewed, normal except as documented Exam Vital Signs Temp Pulse Resp BP Pulse Ox O2 Del Method 98 F 90 18 98/48 L 95 Room Air 09/20/24 08:00 09/20/24 08:00 09/20/24 08:00 09/20/24 08:00 09/20/24 08:00 09/20/24 08:00 Narrative Exam Constitutional Alert, oriented x 0 and in mild distress. Elderly male, cachectic, decreased skin turgor HEENT Vision grossly intact. Patent nares. Trachea midline Respiratory Chest normal on inspection and clear auscultation bilaterally Cardiovascular S1 and S2 audible, RRR. No murmurs carotid bruit. No gross JVD. Abdominal Soft and non tender to palpation in all quadrants. BS +. Genitourinary No bladder tenderness, no flank pain. Normal to palpation Musculoskeletal Extremities tone within normal limits. No LE edema. Neurological CN II - XII grossly intact. Extremity motor and sensation grossly intact. Skin Both feet have dry cracked skin with multiple ulcers in different stages of healing. Results Labs 09/20/24 19:10 09/20/24 12:35 Labs: Short CBC 09/20/24 09/20/24 Range/Units 05:42 07:12 WBC 36.9 H* D 39.5 H* (3.8-10.6) Thou/mm3 Hgb 6.9 L* D 7.0 L (13.5-16.0) g/dL Hct 19.7 L* 20.6 L* (41.0-53.0) % Plt Count 155 D 168 (140-440) Thou/mm3 BMP 09/20/24 05:42 Sodium 131 L Potassium 4.2 D Chloride 103 Carbon Dioxide 15.0 L BUN 65 H Creatinine 4.1 H* Glucose 65 L Calcium 8.3 Cardiac Enzymes 09/19/24 Range/Units 12:05 Total Creatine Kinase 34 (34-171) U/L Liver Function 09/20/24 Range/Units 05:42 Total Bilirubin 0.3 (0.3-1.2) mg/dL AST 76 H (0-34) U/L ALT 19 (10-49) U/L Alkaline Phosphatase 122 H (46-116) U/L Albumin 2.9 L D (3.4-4.8) gm/dL ABG Interpretation ABG results: 09/20/24 09:50 VBG pH 7.41 VBG pCO2 25 L VBG pO2 52 VBG Base Excess -8 L Quality Measures Quality Measures VTE prophylaxis Advance care planning discussed with:: other Medications Home Medications and Allergies Home Medications ?Medication ?Instructions ?Recorded ?Confirmed ?Type omeprazole 20 mg capsule,delayed 20 mg PO QDAY 09/07/19 05/30/24 History release tamsulosin 0.4 mg capsule 0.4 mg PO QDAY 07/14/23 05/30/24 History vitamin B complex-vitamin C-folic 1 tab PO QDAY 07/14/23 05/31/24 History acid 0.8 mg tablet (Kayley-Charley) amlodipine 5 mg tablet 5 mg PO QDAY 05/30/24 05/30/24 History levocetirizine 5 mg tablet 5 mg PO QPM 05/30/24 05/30/24 History Allergies Allergy/AdvReac Type Severity Reaction Status Date / Time clonidine Allergy Intermediate Rash Verified 09/06/24 13:51 Penicillins Allergy Intermediate Rash Verified 09/06/24 13:51 Sulfa (Sulfonamide Allergy Mild Itching Verified 09/06/24 13:51 Antibiotics) Visit Medications Acetaminophen (Acetaminophen 325 Mg Tablet) 650 mg PO Q6H PRN PRN Reason: Fever >100.4 or Pain 1-3 Stop: 10/19/24 16:16 Hydrocodone Bitart/Acetaminophen (Hydrocodone/Apap 5/325 Tablet) 1 tab PO Q4HR PRN PRN Reason: PAIN SCALE 4-10(Mod-Sev Stop: 09/24/24 16:23 Last Admin: 09/20/24 07:22 Dose: 1 tab Albuterol/Ipratropium (Albuterol/Ipratropium (Duoneb) Rt Lucila 3 Ml Nebu) 3 ml INH Q4HRRT PRN PRN Reason: SHORTNESS OF BREATH OR WHEEZE Stop: 10/20/24 01:02 Dextrose (Dextrose 50%-Water Inj 50 Ml Syringe) 25 ml IV Q15MIN PRN PRN Reason: BG 50-70 responsive npo pt Stop: 10/20/24 08:18 Dextrose (Dextrose 50%-Water Inj 50 Ml Syringe) 50 ml IV Q15MIN PRN PRN Reason: BG <50 OR BG <70 & pt unresponsive Stop: 10/20/24 08:18 Diphenhydramine HCl (Diphenhydramine Inj 50 Mg/Ml Vial) 25 mg IV Q4HR PRN PRN Reason: Agitating Stop: 10/20/24 03:50 Last Admin: 09/20/24 09:13 Dose: 25 mg Ferrous Sulfate (Ferrous Sulf 325 Mg Tablet) 325 mg PO QOD DOMENICO Stop: 10/20/24 16:29 Glucagon (Glucagon Inj 1 Mg Vial) 1 mg IM Q15MIN PRN PRN Reason: BG <70, and no IV access Levofloxacin/Dextrose (Levaquin Ivpb) 500 mg in 100 mls @ 100 mls/hr IV Q48HR@2100 DOMENICO Stop: 09/28/24 20:59 Metronidazole (Flagyl 500 Mg Iv) 500 mg in 100 mls @ 200 mls/hr IV Q8HR DOMENICO Stop: 09/26/24 21:59 Last Admin: 09/20/24 05:05 Dose: 200 mls/hr Sodium Chloride (Ns) 1,000 mls @ 100 mls/hr IV .Q10H DOMENICO Stop: 09/21/24 07:23 Last Admin: 12/16/24 08:33 Dose: 100 mls/hr Magnesium Sulfate (Magnesium Sulfate Ivpb) 4 gm in 50 mls @ 12.5 mls/hr IV X1 ONE Stop: 09/20/24 11:42 Last Admin: 09/20/24 08:33 Dose: 12.5 mls/hr Magnesium Sulfate (Magnesium Sulfate Ivpb) 2 gm in 50 mls @ 25 mls/hr IV X1 ONE Stop: 09/20/24 13:59 Vancomycin/Sodium Chloride (Vancomycin/Ns 1 Gm Ivpb) 200 mls @ 120 mls/hr IV X1 ONE Stop: 09/20/24 12:09 Magnesium Hydroxide (Milk Of Magnesia Susp 30 Ml Udc) 30 ml PO QDAY PRN; Protocol PRN Reason: CONSTIPATION Stop: 10/19/24 16:16 Melatonin (Melatonin 3 Mg Tablet) 3 mg PO HS DOMENICO Stop: 10/20/24 20:59 Ondansetron HCl (Ondansetron Inj 2 Mg/Ml Inj 2 Ml) 4 mg IV Q6H PRN; Protocol PRN Reason: NAUSEA OR VOMITING Stop: 10/19/24 16:16 Pantoprazole Sodium (Pantoprazole 40 Mg Tablet) 40 mg PO QDAY DOMENICO Stop: 10/19/24 16:29 Last Admin: 09/19/24 17:06 Dose: 40 mg Pharmacy Consult (Vancomycin Pharmacy To Dose 1 Each Each) 1 each IV QDAY PRN PRN Reason: CONSULT Stop: 10/20/24 10:14 Sennosides (Senna Tablet) 1 tab PO QDAY DOMENICO; Protocol Stop: 10/19/24 16:29 Last Admin: 09/19/24 17:06 Dose: 1 tab Vitamin B Complex/Vit C/Folic Acid (Vit B12/Vit C/Fa (Nephrovite) Tablet) 1 tab PO DAILY DOMENICO Stop: 10/19/24 16:29 Last Admin: 09/19/24 19:00 Dose: 1 tab Discontinued Medications Acetaminophen (Acetaminophen 500 Mg Tablet) 1,000 mg PO X1 ONE Stop: 09/19/24 11:35 Last Admin: 09/19/24 12:13 Dose: 1,000 mg Hydrocodone Bitart/Acetaminophen (Hydrocodone/Apap 10/325 Tab) 1 tab PO Q4H PRN PRN Reason: PAIN SCALE 4-10(Mod-Sev Stop: 09/24/24 16:16 Albuterol/Ipratropium (Albuterol/Ipratropium (Duoneb) Rt Lucila 3 Ml Nebu) 3 ml INH Q4HRRT DOMENICO Stop: 10/19/24 18:59 Last Admin: 09/19/24 19:26 Dose: 3 ml Dextrose (Dextrose 50%-Water Inj 50 Ml Syringe) 50 ml IV X1 ONE Stop: 09/20/24 08:19 Last Admin: 09/20/24 08:25 Dose: 50 ml Heparin Sodium (Porcine) (Heparin Sod Inj 5000 Unit/Ml Vial) 5,000 unit SC Q12HR DOMENICO Stop: 10/03/24 20:59 Last Admin: 09/19/24 22:37 Dose: 5,000 unit Hydromorphone HCl (Hydromorphone Hcl 2 Mg Tablet) 1 mg PO Q4HR PRN PRN Reason: Breakthrough Pain Stop: 09/24/24 17:38 Last Admin: 09/20/24 05:39 Dose: 1 mg Sodium Chloride (Ns) 500 mls @ 999 mls/hr IV .Q31M ONE Stop: 09/19/24 08:16 Last Infusion: 09/19/24 10:00 Dose: Infused Sodium Chloride (Ns) 2,000 mls @ 999 mls/hr IV .Q2H1M ONE Stop: 09/19/24 13:35 Last Infusion: 09/19/24 15:12 Dose: Infused Levofloxacin/Dextrose (Levaquin Ivpb) 500 mg in 100 mls @ 100 mls/hr IV X1 ONE Stop: 09/19/24 12:33 Last Infusion: 09/19/24 13:53 Dose: Infused Metronidazole (Flagyl 500 Mg Iv) 500 mg in 100 mls @ 100 mls/hr IV X1 ONE Stop: 09/19/24 14:08 Last Infusion: 09/19/24 17:12 Dose: Infused Lactated Ringer's (Lactated Ringers) 1,000 mls @ 999 mls/hr IV .Q1H1M ONE Stop: 09/19/24 17:14 Last Infusion: 09/19/24 18:00 Dose: Infused Levofloxacin/Dextrose (Levaquin Ivpb) 250 mg in 50 mls @ 50 mls/hr IV X1 ONE Stop: 09/19/24 18:46 Last Admin: 09/19/24 19:37 Dose: 50 mls/hr Albumin Human (Albuminar-25 Ivpb) 25 gm in 100 mls @ 100 mls/hr IV X1 ONE Stop: 09/20/24 09:31 Last Admin: 09/20/24 09:01 Dose: 100 mls/hr Vancomycin HCl (Vancomycin/Water 1gm Ivpb) 200 mls @ 120 mls/hr IV X1 ONE Stop: 09/20/24 11:54 Morphine Sulfate (Morphine Sulf Inj 10 Mg/Ml Vial) 2 mg IVP Q4HR PRN PRN Reason: Breakthrough Pain Stop: 09/24/24 16:16 Morphine Sulfate (Morphine Sulf Inj 10 Mg/Ml Vial) 2 mg IVP Q4HR PRN PRN Reason: Breakthrough Pain Stop: 09/24/24 16:16 Sodium Bicarbonate (Sodium Bicarb Inj 8.4% Syr 50 Ml Syringe) 25 ml IV X1 ONE Stop: 09/20/24 08:25 Last Admin: 09/20/24 09:01 Dose: 25 ml Sodium Bicarbonate (Sodium Bicarb Inj 8.4% 1 Meq/Ml Vial 50 Ml) 50 meq IV X1 ONE Stop: 09/20/24 08:30 Assessment & Plan Plan Assessment: #MORIAH on CKD #Uremia #High anion gap #Hypokalemia #Hypomagnesemia #Hyperphosphatemia Baseline creatinine 2.0-2.5, baseline GFR 14-18 Labs on admission showed a creatinine of 6.4 with a BUN of 90 and a GFR of 8 Etiology of the patient's MORIAH likely prerenal due to decreased oral intake Notable elevated anion gap likely secondary to elevated BUN. No recent IV contrast imaging, intake of NSAIDs Plan: -IV hydration -Monitor urine output -Avoid nephrotoxins -Renally dose medications -Recommend Stephens to monitor urine output -will need dialysis, however patient declined -prognosis is poor - Patient's care was discussed with my attending physician, Dr. Jordy Miller MD Internal Medicine PGY-3
--- NOTE | 2024-09-20 11:18 | PC.NURSE ---
[id number] DR BUSTILLO CALLED REGARDING BS ON AM LABS. ASKED THAT PATIENT GET JUICE AND DO FINGER STICK BLOOD SUGAR. 0843 DR BUSTILLO CALLED AND INFORMED PATIENT IS TO CONFUSED AND NOT FOLLOWING ORDERS WILL NOT DRINK JUICE ALTHOUGH DID DRINK 3/4 OF HIS MILK RECENTLY. ASKED TO CHECK BS PER FINGER STICK. BS WAS 54 DR BUSTILLO CALLED AGAIN AND INFORMED, ORDERS RECEIVED.
--- NOTE | 2024-09-20 11:37 | PC.SS ---
Follow up note: Sepsis. On IV antibiotic, blood and urine cultures are pending. Possible out patient dialysis.
[2024-09-20] MEDS: Magnesium Sulfate 2 GM Ivpb 2 GM/50 ML BAG IV (12:54)
[2024-09-20] MEDS: VANCOMYCIN/NS 1 GM IVPB 200 ML IV (12:58)
[2024-09-20 13:01] LABS: Reflex Lactate? Y
[2024-09-20 13:07] LABS: INR 1.5 (0.9-1.3); Partial Thromboplastin Time 39.9 Seconds (22.0-36.0); Prothrombin Time 15.9 Seconds (9.0-12.2)
[2024-09-20 13:13] LABS: Alanine Aminotransferase 21 U/L (10-49); Albumin, Serum 3.1 gm/dL (3.4-4.8); Albumin/Globulin Ratio 1.6 (1.2-2.2); Alkaline Phosphatase 112 U/L (46-116); Anion Gap 13 (7-16); Aspartate Amino Transferase 84 U/L (0-34); BUN/Creatinine Ratio 15 Ratio (12-20); Bilirubin,Total 0.4 mg/dL (0.3-1.2); Blood Urea Nitrogen 64 mg/dL (9-23); Calcium (Corrected) 9.7 mg/dL (8.5-10.1); Carbon Dioxide 17.7 mMol/L (20.0-31.0); Chloride 104 mMol/L (98-107); Creatinine (Component) 4.2 mg/dL (0.6-1.3); Estimated Creatinine Clearance 12.7 mL/min (>60); Glucose 72 mg/dL (74-106); Osmolality,Calculated 287 (275-295); Potassium 4.7 mMol/L (3.4-5.1); Sodium 135 mMol/L (136-145); Total Protein 5.1 gm/dL (5.7-8.2); eGFR 13 See Note
--- NOTE | 2024-09-20 13:24 | PC.NURSE ---
SPOKE WITH DR KELLER AND DR PABLO INFORMED PATIENT GIVEN THE BICARB 50 IV THIS AM BEFORE THEY DISCONTINUED IT. THE BICARB 25 IV NOT GIVEN. INFORMED PATIENT IS NOT EATING DUE TO PAIN AND HE SPIT OUT ENSURE, STATED HE DID NOT WANT THAT. PATIENT IS NOT TAKING ANY PO MEDS. ALSO INFORMED F/C IRRIGATED AND NO RESISTANCE FELT. BLADDER SCAN SHOWED 145ML IN BLADDER, 100CC WAS IRRIGATION FLUID. PATIENT CONTINUES TO YELL OUT CONSTANTLY. DR PABLO STATED THAT HE IS ORDERING AND NG TUBE INSERTION. INFORMED PATIENT WILL NOT COOPERATE WITH THAT SINCE HE WOULD NOT LET US EVEN DO NASAL SWAB. 1330 DR KELLER CALLED AND INFORMED THAT THE POINT OF CONTACT([facility]) IS HERE IN PATIENTS ROOM.
--- NOTE | 2024-09-20 13:44 | ESPR_ITS ---
<Statement entered by David Carrington MD - 09/20/24 18:14> Patient was seen and examined at the bedside. Patient became altered in the morning and was having metabolic abnormalities seen with non-anion gap metabolic acidosis, worsening kidney functions and deteriorating mental condition. Suction Plate Carrier Cleaner suggested to talk to the family as patient will need dialysis catheter for possible dialysis. CT abdomen showed SBO pattern therefore NG tube was placed. Gastrografin series was started. We had goals of care discussion on the phone call with patient's sister in the presence of RN who wished that the patient to be transition to comfort care measures as patient is currently not seen in improving condition. Comfort care measures were started and condolences were performed with the patient's family. I saw and examined the patient, and I agree with current management stated by Dr Gopi MD,PGY1. Plan of care was discussed with the attending physician and resident physician. Disclaimer: Despite multiple revisions, due to the dictation software being used, the document bellow may not be free of grammatical errors including phonetic/typographic errors. However, this does not deter from our commitment to providing health care in the patient's best interest in mind. Dr. Charissa MD, PGY 2 Documentation for date of: 09/20/24 Subjective Subjective Interval history: Patient seen and examined at bedside this a.m. No overnight events Patient is A&O x 0 and is unable to give consult for dialysis or any other procedures His sister, Lucila Hernandez was contacted at [phone]. She was updated on patient's clinical status including sepsis secondary to UTI, CKD stage V requiring dialysis as well as small bowel obstruction. He has no other family or advanced directives and his sister made the decision to switch him from full code to DNR with comfort measures. Exam Vital Signs Temp Pulse Resp BP Pulse Ox O2 Del Method 97.4 F 98 18 118/61 95 Room Air 09/20/24 12:00 09/20/24 12:00 09/20/24 12:00 09/20/24 12:00 09/20/24 12:00 09/20/24 12:00 Narrative Exam Constitutional Alert, oriented x 0 and in mild distress. Elderly male, cachectic, decreased skin turgor HEENT Vision grossly intact. Patent nares. Trachea midline Respiratory Chest normal on inspection and clear auscultation bilaterally Cardiovascular S1 and S2 audible, RRR. No murmurs carotid bruit. No gross JVD. Abdominal Soft and non tender to palpation in all quadrants. BS +. Genitourinary No bladder tenderness, no flank pain. Normal to palpation Musculoskeletal Extremities tone within normal limits. No LE edema. Neurological CN II - XII grossly intact. Extremity motor and sensation grossly intact. Skin Both feet have dry cracked skin with multiple ulcers in different stages of healing. Objective Labs 09/20/24 19:10 09/20/24 12:35 Labs: Laboratory Results - last 24 hr 09/19/24 09/19/24 09/19/24 12:05 15:20 17:52 WBC RBC Hgb Hct MCV MCH MCHC RDW Std Deviation Plt Count Neut % (Auto) Lymph % (Auto) [place] % (Auto) Eos % (Auto) Baso % (Auto) Neut # (Auto) Lymph # (Auto) [place] # (Auto) Eos # (Auto) Baso # (Auto) Immature Gran # (Auto) Absolute Nucleated RBC Immature Gran % Nucleated RBC % Smear Path Review PT INR APTT VBG pH VBG pCO2 VBG pO2 VBG O2 Sat (Jocelin) VBG Base Excess Sodium Potassium Chloride Carbon Dioxide Anion Gap BUN Creatinine Estim Creat Clear Calc eGFR BUN/Creatinine Ratio Glucose Calculated Osmolality Lactic Acid 6.5 H* 3.9 H Calcium Corrected Calcium Phosphorus Magnesium Total Bilirubin AST ALT Alkaline Phosphatase Ammonia Total Creatine Kinase 34 Total Protein Albumin Globulin Albumin/Globulin Ratio TSH Free T4 Blood Type Antibody Screen Crossmatch Blood Bank Wristband ID 09/19/24 09/20/24 09/20/24 22:50 05:42 07:12 WBC 36.9 H* D 39.5 H* RBC 2.06 L 2.10 L Hgb 6.9 L* D 7.0 L Hct 19.7 L* 20.6 L* MCV 96 98 MCH 33.5 33.3 MCHC 35.0 34.0 RDW Std Deviation 44.4 H 46.1 H Plt Count 155 D 168 Neut % (Auto) 92 H 91 H Lymph % (Auto) 1 L 1 L [place] % (Auto) 2 2 Eos % (Auto) 0 0 Baso % (Auto) 0 0 Neut # (Auto) 34.0 H 35.9 H Lymph # (Auto) 0.2 L 0.2 L [place] # (Auto) 0.6 0.9 H Eos # (Auto) 0.0 0.0 Baso # (Auto) 0.1 0.1 Immature Gran # (Auto) 2.01 H 2.41 H Absolute Nucleated RBC 0.00 0.00 Immature Gran % 5 H 6 H Nucleated RBC % 0 0 Smear Path Review Sent to Pathologist PT INR APTT VBG pH VBG pCO2 VBG pO2 VBG O2 Sat (Jocelin) VBG Base Excess Sodium 131 L Potassium 4.2 D Chloride 103 Carbon Dioxide 15.0 L Anion Gap 13 BUN 65 H Creatinine 4.1 H* Estim Creat Clear Calc 13.4 L eGFR 14 L* BUN/Creatinine Ratio 16 Glucose 65 L Calculated Osmolality 279 Lactic Acid 3.3 H Calcium 8.3 Corrected Calcium 9.2 Phosphorus 3.6 Magnesium 1.0 L Total Bilirubin 0.3 AST 76 H ALT 19 Alkaline Phosphatase 122 H Ammonia Total Creatine Kinase Total Protein 4.6 L Albumin 2.9 L D Globulin 1.7 L Albumin/Globulin Ratio 1.7 TSH Free T4 Blood Type O Positive Antibody Screen NEGATIVE Crossmatch See Detail Blood Bank Wristband ID Yes 09/20/24 09/20/24 09/20/24 09:34 09:50 12:35 WBC RBC Hgb Hct MCV MCH MCHC RDW Std Deviation Plt Count Neut % (Auto) Lymph % (Auto) [place] % (Auto) Eos % (Auto) Baso % (Auto) Neut # (Auto) Lymph # (Auto) [place] # (Auto) Eos # (Auto) Baso # (Auto) Immature Gran # (Auto) Absolute Nucleated RBC Immature Gran % Nucleated RBC % Smear Path Review PT 15.9 H D INR 1.5 H APTT 39.9 H D VBG pH 7.41 VBG pCO2 25 L VBG pO2 52 VBG O2 Sat (Jocelin) 89 L VBG Base Excess -8 L Sodium 135 L Potassium 4.7 D Chloride 104 Carbon Dioxide 17.7 L Anion Gap 13 BUN 64 H Creatinine 4.2 H* Estim Creat Clear Calc 12.7 L eGFR 13 L* BUN/Creatinine Ratio 15 Glucose 72 L Calculated Osmolality 287 Lactic Acid 3.8 H Calcium 9.0 Corrected Calcium 9.7 Phosphorus Magnesium 1.1 L Total Bilirubin 0.4 AST 84 H ALT 21 Alkaline Phosphatase 112 Ammonia < 10 L Total Creatine Kinase Total Protein 5.1 L Albumin 3.1 L Globulin 2.0 L Albumin/Globulin Ratio 1.6 TSH 4.98 H D Free T4 0.96 Blood Type Antibody Screen Crossmatch Blood Bank Wristband ID ABG Interpretation ABG results: 09/20/24 09:50 VBG pH 7.41 VBG pCO2 25 L VBG pO2 52 VBG Base Excess -8 L Quality Measures Quality Measures VTE prophylaxis Advance care planning discussed with:: sibling (Lucila Hernandez) Assessment & Plan Assessment Current Active Medications: Generic Name Dose Route Start Last Admin Trade Name Freq PRN Reason Stop Dose Admin Acetaminophen 650 mg 09/19/24 16:17 Acetaminophen 325 Mg Tablet PO 10/19/24 16:16 Q6H PRN Fever >100.4 or Pain 1-3 Hydrocodone Bitart/Acetaminophen 1 tab 09/19/24 16:24 09/20/24 12:35 Hydrocodone/Apap 5/325 Tablet PO 09/24/24 16:23 1 tab Q4HR PRN Administration PAIN SCALE 4-10(Mod-Sev Albuterol/Ipratropium 3 ml 09/20/24 01:03 Albuterol/Ipratropium (Duoneb) Rt Lucila 3 Ml Nebu INH 10/20/24 01:02 Q4HRRT PRN SHORTNESS OF BREATH OR WHEEZE Dextrose 25 ml 09/20/24 08:19 Dextrose 50%-Water Inj 50 Ml Syringe IV 10/20/24 08:18 Q15MIN PRN BG 50-70 responsive npo pt Dextrose 50 ml 09/20/24 08:19 Dextrose 50%-Water Inj 50 Ml Syringe IV 10/20/24 08:18 Q15MIN PRN BG <50 OR BG <70 & pt unresponsive Diphenhydramine HCl 25 mg 09/20/24 03:51 09/20/24 12:53 Diphenhydramine Inj 50 Mg/Ml Vial IV 10/20/24 03:50 25 mg Q4HR PRN Administration Agitating Ferrous Sulfate 325 mg 09/20/24 16:30 Ferrous Sulf 325 Mg Tablet PO 10/20/24 16:29 QOD DOMENICO Glucagon 1 mg 09/20/24 08:19 Glucagon Inj 1 Mg Vial IM Q15MIN PRN BG <70, and no IV access Levofloxacin/Dextrose 500 mg in 100 mls @ 100 mls/hr 09/21/24 21:00 Levaquin Ivpb IV 09/28/24 20:59 Q48HR@2100 DOMENICO Metronidazole 500 mg in 100 mls @ 200 mls/hr 09/19/24 22:00 09/20/24 05:05 Flagyl 500 Mg Iv IV 09/26/24 21:59 200 mls/hr Q8HR DOMENICO Administration Sodium Chloride 1,000 mls @ 100 mls/hr 09/20/24 07:24 09/20/24 08:33 Ns IV 09/21/24 07:23 100 mls/hr .Q10H DOMENICO Administration Magnesium Sulfate 2 gm in 50 mls @ 25 mls/hr 09/20/24 12:00 09/20/24 12:54 Magnesium Sulfate Ivpb IV 09/20/24 13:59 25 mls/hr X1 ONE Administration Magnesium Hydroxide 30 ml 09/19/24 16:17 Milk Of Magnesia Susp 30 Ml Udc PO 10/19/24 16:16 QDAY PRN CONSTIPATION Protocol Melatonin 3 mg 09/20/24 21:00 Melatonin 3 Mg Tablet PO 10/20/24 20:59 HS DOMENICO Ondansetron HCl 4 mg 09/19/24 16:17 Ondansetron Inj 2 Mg/Ml Inj 2 Ml IV 10/19/24 16:16 Q6H PRN NAUSEA OR VOMITING Protocol Pantoprazole Sodium 40 mg 09/19/24 16:30 09/20/24 10:30 Pantoprazole 40 Mg Tablet PO 10/19/24 16:29 Not Given QDAY [facility] Pharmacy Consult 1 each 09/20/24 10:15 Vancomycin Pharmacy To Dose 1 Each Each IV 10/20/24 10:14 QDAY PRN CONSULT Sennosides 1 tab 09/19/24 16:30 09/20/24 10:30 Senna Tablet PO 10/19/24 16:29 Not Given QDAY DOMENICO Protocol Vitamin B Complex/Vit C/Folic Acid 1 tab 09/19/24 16:30 09/20/24 10:30 Vit B12/Vit C/Fa (Nephrovite) Tablet PO 10/19/24 16:29 Not Given DAILY DOMENICO Plan Patient has dementia at baseline. Majority of history obtained from chart review. Patient is an 84-year-old male with a past medical history significant for essential hypertension, CKD stage V, BPH, dementia and chronic normocytic anemia. Patient was brought in by ambulance today from [place] acute rehab facility due to chief complaint of removing his Stephens catheter and subsequent hematuria. Upon questioning patient uncertain of why he was brought into the hospital. Patient will be admitted to the floor for workup and management of sepsis secondary to UTI. Nephrology was consulted for CKD stage V. 1. Sepsis secondary to UTI 2. Lactic acidosis 3. None anion gap metabolic acidosis 4. Possible perineal cellulitis 5. CKD stage V 6. Chronic normocytic anemia 7. BPH 8. Dementia 9. Essential hypertension 10. Small bowel obstruction Patient is A&O x 0 and is unable to give consult for dialysis or any other procedures. His sister, Lucila Hernandez was contacted at [phone]. She was updated on patient's clinical status including sepsis secondary to UTI, CKD stage V requiring dialysis as well as small bowel obstruction. He has no other family or advanced directives and his sister made the decision to switch him from full code to DNR with comfort measures. Plan: ? Comfort measures ? Morphine 2 Mg IV Q 30 minutes as needed Health maintenance: Disposition: Comfort measures Diet: Regular Lines: pIVs GI Prophylaxis: None Thrombo Prophylaxis: None Code status: DNR Plan of care discussed with Attending Dr. Sinha and PGY2 Dr. Charissa Nguyễn MD PGY 1 Attending Provider Attestation/Addendum I, Bushra Sinha, DO, attest that I was physically present for the fregoso portions of the service and evaluated the patient with the resident and I reviewed and discussed the case with the resident and agree with the resident's findings and plans of care as documented above Patient seen and eval. Patient has been very agitated throughout the night and day. Patient with worsening confusion as well. Worsening leukocytosis was noted at 36.9-39.5 this morning. He received 1 unit of PRBCs with hemoglobin 6.9. No paula bleeding was noted on exam. Metabolic acidosis appears to be worsening, but compensated. Lactic acidosis appears to be worsening as well. Patient was restarted on gentle IV fluid hydration. Patient is yelling nurse and has been in pain. However, he is unable to localize where the pain is. He appears to be guarding suprapubic region with his hands and refusing to be examined. Patient is noted to have a mildly distended abdomen and tenderness to palpation. Urine. Stephens catheter appears to be clear. Penis appears to be very swollen as well. Due to worsening renal function and metabolic acidosis with lactic acidosis, discussed with patient's point of contact, Shavonne Nolasco, regarding patient's worsening condition. Explained to her that patient had refused dialysis on last admission. She stated that patient had once verbalized that he would give it a try. However, explained to her that the patient is unable to make any of his own medical decisions at this time. Moreover, patient has been uncooperative with part of workup as patient refused the MRSA nares swab yesterday. Shavonne suggested that we call the patient's sister, his only family member to help make his medical decisions. In the meantime, CT head, chest, abdomen, pelvis were ordered due to patient's worsening mental status and abdominal pain. There is concern for possible bladder trauma after patient had self removed his Stephens catheter prior to coming to the hospital. CT head was negative for any intracranial findings. CT chest abdomen pelvis showed evidence of significantly fluid distended small bowel loops concerning for SBO. Urinary bladder appeared to be thickened as well, likely due to UTI. He was also noted to have aneurysmal dilatation ascending thoracic aorta, 8 mm calcified right thyroid nodule, heavy coronary artery calcification and bibasilar pneumonia. NG tube was ordered to be placed due to the dilated loops of bowel. However, patient refused for NG tube to be placed. He remains very agitated in obvious distress due to pain. PGY1 discussed patient's current condition with patient's sister, Lucila. Lucila stated that she should would prefer for patient to be just be made comfortable due to his persistent agitation and discomfort. She declined any interventions such as dialysis or any further workup. CODE STATUS speech switched to DNR/DNI. Patient initially was placed on morphine pushes, but continued to be agitated and uncomfortable. He was subsequently placed on morphine drip.
--- NOTE | 2024-09-20 14:03 | PC.NURSE ---
PER POINT OF CONTACT IF PATIENT PASSES AWAY, CONTACT [facility]
[2024-09-20 14:12] LABS: Lactic Acid, 3 HR 1.9 mMol/L (0.4-2.0)
--- NOTE | 2024-09-20 14:28 | PC.PT ---
PT approached patient at 10:15 for PT eval. Patient refused PT even with encouragement and education on the benefits of movement.
--- NOTE | 2024-09-20 15:46 | PC.SS ---
Addendum entered by MANDY Hooper 09/20/24 15:57: Contacted patient's friend Shavonne. Discussed with Shavonne if the patient is able to return home with hospice services and she informed she would like the patient's sister Lucila who lives in [place]. Original Note: SS follow up: Conatcted Annel at [facility] to identify if the patient can return to the facility under comfort measures. Annel informed patient is unable to return under comfort measures due to the patient having a managed medicare plan and not being covered under the patient's insurance. Annel informed they do not have a hospice bed available at this time.
[2024-09-20] MEDS: MORPHINE SULF INJ 10 MG/ML VIAL 2 MG IVP ×2 (16:20→17:17)
--- NOTE | 2024-09-20 17:26 | PC.NURSE ---
ATTEMPTED TO CALL DR PABLO NO ANSWER. ATTEMPTED TO CALL DR MINDY MORROW. CALLED DR ZHAGN INFORMED THAT PATIEN HAS BEEN SCREAMING NONSTOP SINCE YESTERDYA. DID NOT SLEEP EVEN WHEN MEDICATED WITH DILAUDID AND BENADRYL IVP DURING THE NIGHT. I HAVE GIVEN HIM THE BENADRYL IV ORDERED TWICE AND NORCO ORDER TWICE AND HE HAS NOT STOPPED SCREAMING. I HAVE GIVEN HIM THE MORPHINE 2MG IVP Q 30MINS TWICE AND HE IS STILL SCREAMING AND STATING HE NEEDS PAIN MEDICATION. INFORMED HER THAT THE PRESENT ORDER IS NOT FEASABLE IF INDEED WE ARE TO MEDICATE HIM EVERY 30MINS. STATED WILL EVALUATE.
[2024-09-20] MEDS: LORazepam 2 MG/ML VIAL 1 MG IVP (17:40)
--- NOTE | 2024-09-20 17:41 | PC.NURSE ---
DR BUSTILLO AT BEDSIDE. SPOKE WITH HER AND SHE TRIED TO TALK TO PATIENT. STATED WILL CHANGE ORDERS AND OK TO GIVE THE ATIVAN ORDERED FOR NGTUBE PLACEMENT
[2024-09-20] MEDS: Morphine IV Drip 100mg/100ml 100 ML IV (18:00)
[2024-09-20] MEDS: SCOPOLAMINE 1 MG TDSY TOP (18:00)
[2024-09-20 19:22] LABS: Hematocrit 20.9 % (41.0-53.0); Hemoglobin 7.3 g/dL (13.5-16.0)
[2024-09-21] VITALS (9 sets, daily range): BP systolic 106–135; BP diastolic 58–82; PULSE 63–105; RESP 18–97; TEMP 36.3–36.6; O2SAT 92–100; BMI 24.8
[2024-09-21] MEDS: SODIUM CHLORIDE 0.9% 1000 ML 1,000 ML 100 ML IV ×2 (05:17→16:08)
--- NOTE | 2024-09-21 08:13 | ESPR_ITS ---
<Statement entered by David Carrington MD - 09/21/24 16:48> Patient is currently seen on morphine drip and he was altered and was not fully oriented to time and place. Social workers tried reaching the patient's sister to discuss regarding hospice at home versus trying to reach to SNF for comfort care measures continuation. Will likely follow-up on updates for tomorrow morning. Currently continuing morphine pushes with Ativan as needed for agitation. All labs and orders were reviewed. I saw and examined the patient, and I agree with current management stated by Dr Gopi MD,PGY1. Plan of care was discussed with the attending physician and resident physician. Disclaimer: Despite multiple revisions, due to the dictation software being used, the document bellow may not be free of grammatical errors including phonetic/typographic errors. However, this does not deter from our commitment to providing health care in the patient's best interest in mind. Dr. Charissa MD, PGY 2 Documentation for date of: 09/21/24 Subjective Subjective Interval history: Patient seen and examined at bedside. Patient seen staring and has spontaneous movements and respirations, does not follow commands Seen clutching suprapubic area intermittently Exam Vital Signs Temp Pulse Resp BP Pulse Ox O2 Del Method O2 Flow Rate 97.6 F 95 18 117/82 93 L Nasal Cannula 2 09/21/24 04:00 09/21/24 04:00 09/21/24 04:00 09/21/24 04:00 09/21/24 04:00 09/21/24 04:00 09/21/24 04:00 Narrative Exam Constitutional Alert, oriented x 0 and comfortable. Elderly male HEENT Vision grossly intact. Patent nares. Trachea midline Respiratory Chest normal on inspection and clear auscultation bilaterally Cardiovascular S1 and S2 audible, RRR. No murmurs carotid bruit. No gross JVD. Abdominal Soft and non tender to palpation in all quadrants. BS + Genitourinary No bladder tenderness, no flank pain. Normal to palpation Musculoskeletal Extremities tone within normal limits. No LE edema. Neurological CN II - XII grossly intact. Extremity motor and sensation grossly intact. Skin Dry cracked skin on feet Objective Labs 09/20/24 19:10 09/20/24 12:35 Labs: Laboratory Results - last 24 hr 09/20/24 09/20/24 09/20/24 05:42 07:12 09:34 Hgb Hct Smear Path Review Sent to Pathologist PT INR APTT VBG pH VBG pCO2 VBG pO2 VBG O2 Sat (Jocelin) VBG Base Excess Sodium Potassium Chloride Carbon Dioxide Anion Gap BUN Creatinine Estim Creat Clear Calc eGFR BUN/Creatinine Ratio Glucose Calculated Osmolality Lactic Acid 3.8 H Calcium Corrected Calcium Magnesium 1.1 L Total Bilirubin AST ALT Alkaline Phosphatase Ammonia Total Protein Albumin Globulin Albumin/Globulin Ratio TSH 4.98 H D Free T4 0.96 Blood Type O Positive Antibody Screen NEGATIVE Crossmatch See Detail Blood Bank Wristband ID Yes 09/20/24 09/20/24 09/20/24 09:50 12:35 13:51 Hgb Hct Smear Path Review PT 15.9 H D INR 1.5 H APTT 39.9 H D VBG pH 7.41 VBG pCO2 25 L VBG pO2 52 VBG O2 Sat (Jocelin) 89 L VBG Base Excess -8 L Sodium 135 L Potassium 4.7 D Chloride 104 Carbon Dioxide 17.7 L Anion Gap 13 BUN 64 H Creatinine 4.2 H* Estim Creat Clear Calc 12.7 L eGFR 13 L* BUN/Creatinine Ratio 15 Glucose 72 L Calculated Osmolality 287 Lactic Acid 1.9 Calcium 9.0 Corrected Calcium 9.7 Magnesium Total Bilirubin 0.4 AST 84 H ALT 21 Alkaline Phosphatase 112 Ammonia < 10 L Total Protein 5.1 L Albumin 3.1 L Globulin 2.0 L Albumin/Globulin Ratio 1.6 TSH Free T4 Blood Type Antibody Screen Crossmatch Blood Bank Wristband ID 09/20/24 19:10 Hgb 7.3 L Hct 20.9 L* Smear Path Review PT INR APTT VBG pH VBG pCO2 VBG pO2 VBG O2 Sat (Jocelin) VBG Base Excess Sodium Potassium Chloride Carbon Dioxide Anion Gap BUN Creatinine Estim Creat Clear Calc eGFR BUN/Creatinine Ratio Glucose Calculated Osmolality Lactic Acid Calcium Corrected Calcium Magnesium Total Bilirubin AST ALT Alkaline Phosphatase Ammonia Total Protein Albumin Globulin Albumin/Globulin Ratio TSH Free T4 Blood Type Antibody Screen Crossmatch Blood Bank Wristband ID ABG Interpretation ABG results: 09/20/24 09:50 VBG pH 7.41 VBG pCO2 25 L VBG pO2 52 VBG Base Excess -8 L Quality Measures Quality Measures VTE prophylaxis Advance care planning discussed with:: other Assessment & Plan Assessment Current Active Medications: Generic Name Dose Route Start Last Admin Trade Name Freq PRN Reason Stop Dose Admin Artificial Tears 1 drop 09/20/24 14:13 Artificial Tears 225 Drop/15 Ml Btl BOTH EYES 10/20/24 14:12 Q4HR PRN Dry eyes Atropine Sulfate 2 drop 09/20/24 14:13 Atropine Sulf Op Lucila 1% 5 Ml Btl SL 10/20/24 14:12 Q4HR PRN SECRETIONS Morphine Sulfate 100 mls @ 1 mls/hr 09/20/24 14:13 09/20/24 18:00 Morphine Sulfate Iv Drip 100mg/100ml IV 09/25/24 14:12 1 mg/hr .Q24H PRN 1 mls/hr PAIN (COMFORT CARE) Administration Protocol 1 MG/HR Lorazepam 1 mg 09/20/24 17:40 Lorazepam 2 Mg/Ml Vial IVP 09/25/24 17:39 Q6HR PRN Anxiety or agitation Melatonin 3 mg 09/20/24 21:00 09/20/24 20:43 Melatonin 3 Mg Tablet PO 10/20/24 20:59 Not Given HS DOMENICO Ondansetron HCl 4 mg 09/20/24 14:13 Ondansetron Odt 4 Mg Tabrap PO 10/20/24 14:12 Q6HR PRN Vomiting Plan Patient has dementia at baseline. Majority of history obtained from chart review. Patient is an 84-year-old male with a past medical history significant for essential hypertension, CKD stage V, BPH, dementia and chronic normocytic anemia. Patient was brought in by ambulance today from [place] acute rehab facility due to chief complaint of removing his Franco catheter and subsequent hematuria. Upon questioning patient uncertain of why he was brought into the hospital. Patient will be admitted to the floor for workup and management of sepsis secondary to UTI. Nephrology was consulted for CKD stage V. 1. Sepsis secondary to UTI 2. Lactic acidosis 3. None anion gap metabolic acidosis 4. Possible perineal cellulitis 5. CKD stage V 6. Chronic normocytic anemia 7. BPH 8. Dementia 9. Essential hypertension 10. Small bowel obstruction Patient is A&O x 0 and is unable to give consult for dialysis or any other procedures. His sister, Lucila Hernandez was contacted at [phone]. She was updated on patient's clinical status including sepsis secondary to UTI, CKD stage V requiring dialysis as well as small bowel obstruction. He has no other family or advanced directives and his sister made the decision to switch him from full code to DNR with comfort measures. Urine culture significant for citrobacter braakii sensitive to levofloxacin Plan: ? Comfort measures ? Morphine 2 Mg IV Q 2hrly as needed - Started on Levofloxacin 500mg IV q 48hrly from [09/21 - - Patient's sister Lucila updated on current clinical status and offered option of SNF with hospice vs home health with hospice. Health maintenance: Disposition: Comfort measures and IV antibiotics Diet: Regular Lines: pIVs GI Prophylaxis: None Thrombo Prophylaxis: None Code status: DNR Plan of care discussed with Attending Dr. Sinha and PGY2 Dr. Charissa Nguyễn MD PGY 1 Attending Provider Attestation/Addendum I, Bushra Sinha, DO, attest that I was physically present for the fregoso portions of the service and evaluated the patient with the resident and I reviewed and discussed the case with the resident and agree with the resident's findings and plans of care as documented above Patient seen and evaluated this AM. He is much calmer today. He continues to have some discomfort in suprapubic region versus franco catheter site. Transitioning from morphine drip to pushes as patient has required minimal morphine at 1mg/hr. UA noted to be positive for citrobacter, sensitive to levaquin. Lactic acid improved with hydration yesterday. However, sister has decided to not pursue any further aggressive treatment. Pending placement back to SNF.
--- NOTE | 2024-09-21 08:32 | PC.SS ---
Addendum entered by MANDY Hooper 09/21/24 09:34: Spoke with patient's sister, Lucila Hernandez . She informed the patient was transitioned to comfort care measures and code status was changed to DNR yesterday. Lucila informed she would be unable to transition the patient home with hospice services. Informed Lucila the [facility] is unable to accept the patient back under comfort care measures due to the patient's managed insurance plan. Lucila verbalized understanding. At this time, Lucila informs she is unable to be present today however can be reached via phone. Original Note: Attempted contact with patient's sister Lucila . However she did not answer and voicemail was provided with call back number.
--- NOTE | 2024-09-21 08:50 | PC.SS ---
ENGAGEMENT MGR provided update on patient's status to APS staff, Itzel Joseph ; that patient was re-admitted to the hospital on 09-19-24. APS requesting follow up upon patient's discharge. Patient's assigned ENGAGEMENT MGR provided with discharge request.
--- NOTE | 2024-09-21 11:06 | PD.RESPRO ---
Documentation for date of: 09/21/24 Subjective Subjective Interval history: Patient seen and examined. Currently comfort care. Patient is resting, comfortable. Exam Vital Signs Temp Pulse Resp BP Pulse Ox O2 Del Method O2 Flow Rate 97.3 F 96 20 116/58 L 97 Room Air 2 09/21/24 08:00 09/21/24 08:01 09/21/24 08:01 09/21/24 08:00 09/21/24 08:01 09/21/24 08:00 09/21/24 04:00 Narrative Exam Comfort care, laying bed sleeping, comfortable. Objective Labs 09/20/24 19:10 09/20/24 12:35 Labs: Laboratory Results - last 24 hr 09/20/24 09/20/24 09/20/24 07:12 12:35 13:51 Hgb Hct PT 15.9 H D INR 1.5 H APTT 39.9 H D Sodium 135 L Potassium 4.7 D Chloride 104 Carbon Dioxide 17.7 L Anion Gap 13 BUN 64 H Creatinine 4.2 H* Estim Creat Clear Calc 12.7 L eGFR 13 L* BUN/Creatinine Ratio 15 Glucose 72 L Calculated Osmolality 287 Lactic Acid 1.9 Calcium 9.0 Corrected Calcium 9.7 Total Bilirubin 0.4 AST 84 H ALT 21 Alkaline Phosphatase 112 Total Protein 5.1 L Albumin 3.1 L Globulin 2.0 L Albumin/Globulin Ratio 1.6 Blood Type O Positive Antibody Screen NEGATIVE Crossmatch See Detail Blood Bank Wristband ID Yes 09/20/24 19:10 Hgb 7.3 L Hct 20.9 L* PT INR APTT Sodium Potassium Chloride Carbon Dioxide Anion Gap BUN Creatinine Estim Creat Clear Calc eGFR BUN/Creatinine Ratio Glucose Calculated Osmolality Lactic Acid Calcium Corrected Calcium Total Bilirubin AST ALT Alkaline Phosphatase Total Protein Albumin Globulin Albumin/Globulin Ratio Blood Type Antibody Screen Crossmatch Blood Bank Wristband ID ABG Interpretation ABG results: 09/20/24 09:50 VBG pH 7.41 VBG pCO2 25 L VBG pO2 52 VBG Base Excess -8 L Quality Measures Quality Measures VTE prophylaxis Advance care planning discussed with:: other Assessment & Plan Assessment Current Active Medications: Generic Name Dose Route Start Last Admin Trade Name Freq PRN Reason Stop Dose Admin Artificial Tears 1 drop 09/20/24 14:13 Artificial Tears 225 Drop/15 Ml Btl BOTH EYES 10/20/24 14:12 Q4HR PRN Dry eyes Levofloxacin/Dextrose 500 mg in 100 mls @ 100 mls/hr 09/21/24 21:00 Levaquin Ivpb IV 09/28/24 20:59 Q48HR@2100 DOMENICO Lorazepam 1 mg 09/20/24 17:40 Lorazepam 2 Mg/Ml Vial IVP 09/25/24 17:39 Q6HR PRN Anxiety or agitation Melatonin 3 mg 09/20/24 21:00 09/20/24 20:43 Melatonin 3 Mg Tablet PO 10/20/24 20:59 Not Given HS [facility] Morphine Sulfate 2 mg 09/21/24 10:42 Morphine Sulf Inj 10 Mg/Ml Vial IVP 09/26/24 11:59 Q2HR PRN Agitation or pain Ondansetron HCl 4 mg 09/20/24 14:13 Ondansetron Odt 4 Mg Tabrap PO 10/20/24 14:12 Q6HR PRN Vomiting Quetiapine Fumarate 25 mg 09/21/24 21:00 Quetiapine Fumarate 25 Mg Tablet PO 10/21/24 20:59 HS [facility] Plan #MORIAH on CKD #Hypokalemia, resolved #Hypomagnesemia, resolved #Hyperphosphatemia, resolved Recommendations: -Family decided comfort care, we agree. Patient has very poor prognosis. -Nephrology will sign off. - Patient's care was discussed with my attending physician, Dr. Jordy Miller MD Internal Medicine PGY-3
--- NOTE | 2024-09-21 13:08 | CHAP ---
09:30 AM Visited by spiritual care volunteer Provided prayer for Patient.
--- NOTE | 2024-09-21 15:31 | PC.SS ---
Spoke with patient's sister, Lucila Hernandez . Updated her on patient's current status with placement. SNF is unable to accept the patient with comfort care measures due to insurance barrier.
--- NOTE | 2024-09-21 15:36 | PC.SS ---
Spoke with patient's sister, Lucila Hernandez . Updated her on patient's current status with placement. SNF is unable to accept the patient with comfort care measures due to his insurance not being able to authorize. Family would have to pay privately out of pocket for placement. Lucila informs she is unable to care for the patient as she lives three hours away and unable to meet patient's needs. At this time, the patient is unable to return home with hospice services as he lives at home, alone. I also spoke with patient's long time friend, Shavonne Viveroscristhian who also informed she is unable to take the patient home under her care with hospice services as she mentioned she was dealing with her own health issues. At this time, the discharge plan remains pending.
[2024-09-21] MEDS: LEVOFLOXACIN/D5W 500 MG IVPB 500 MG/100 ML BAG 100 MG IV (20:11)
[2024-09-22] VITALS (9 sets, daily range): BP systolic 125–174; BP diastolic 74–94; PULSE 72–111; RESP 18–96; TEMP 36.1–36.6; O2SAT 93–100; BMI 24.8
[2024-09-22] MEDS: LORazepam 2 MG/ML VIAL 1 MG IVP (08:00)
[2024-09-22 09:29] LABS: Basophils # (Auto) 0.1 Thou/mm3 (0.0-0.2); Basophils % (Auto) 0 % (0-2.5); Eosinophils # (Auto) 0.4 Thou/mm3 (0.0-0.5); Eosinophils % (Auto) 2 % (0-10); Hematocrit 23.8 % (41.0-53.0); Immature Granulocytes % (Auto) 2 % (0-0); Immature Granulocytes Auto 0.27 Thou/mm3 (0.00-0.00); Lymphocytes # (Auto) 0.5 Thou/mm3 (1.0-4.8); Lymphocytes % (Auto) 3 % (10-50); Mean Corpuscular HGB Conc 33.6 g/dl (31.0-37.0); Mean Corpuscular Hemoglobin 32.1 pg (25.0-35.0); Mean Corpuscular Volume 96 fL (80-100); Monocytes # (Auto) 0.5 Thou/mm3 (0.0-0.8); Monocytes % (Auto) 3 % (0-12); Neutrophils # (Auto) 15.7 Thou/mm3 (1.8-7.7); Neutrophils % (Auto) 90 % (37-80); Nucleated Red Blood Cell % 0 /100 WBC (0); Platelet Count 117 Thou/mm3 (140-440); RDW Standard Deviation 49.7 fL (35.1-43.9); Red Blood Count 2.49 Miln/mm3 (4.50-5.90); White Blood Count 17.4 Thou/mm3 (3.8-10.6)
--- NOTE | 2024-09-22 09:30 | CHAP ---
Gave comfort and prayer.
--- NOTE | 2024-09-22 09:42 | PC.SS ---
Addendum entered by MANDY Hooper 09/22/24 16:05: Spoke with Diana at [facility], she informs they are unable to accept the patient at this time. Spoke with Fidelina at [facility], informs they have are pending response from their admin. Addendum entered by MANDY Hooper 09/22/24 12:52: SS follow up: [facility] is reviewing the referral with their facility DON to determine if they are able to accept the patient. I also spoke with [facility] staff Fidelina and they informed they would speak to their admin to see if they can assist with accepting the patient at their facility. At this time we are pending a response from these two facilities, no other accepting facility identified via updated referral sent on [facility]. Original Note: SS follow up: sent an updated SNF referral for the patient with expansion of search as no success in accepting local SNF's for the patient at this time. Pending response from facilities.
--- NOTE | 2024-09-22 10:53 | ESPR_ITS ---
<Statement entered by David Carrington MD - 09/22/24 15:28> Patient was seen and examined at the bedside. He has been getting morphine pushes. Currently drug abuse social worker Sonia has been working on 2 different SNF for possible discharge on comfort measures. Currently awaiting further decision. Sister was contacted by the drug abuse social worker. We started Levaquin every 48 hourly for possible Citrobacter seen in UTI. All labs and orders were reviewed. I saw and examined the patient, and I agree with current management stated by Dr Gopi MD,PGY1. Plan of care was discussed with the attending physician and resident physician. Disclaimer: Despite multiple revisions, due to the dictation software being used, the document bellow may not be free of grammatical errors including phonetic/typographic errors. However, this does not deter from our commitment to providing health care in the patient's best interest in mind. Dr. Charissa MD, PGY 2 Documentation for date of: 09/22/24 Subjective Subjective Interval history: Patient seen and examined at bedside. Patient seen staring and has spontaneous movements and respirations, does not follow commands Seen clutching suprapubic area intermittently and trying to pull out Catheter Clamp urinary catheter and attempt to discontinue today. Continue Levofloxacin 500mg IV [id number] freezing room worker to liaise with sister Lucila re: SNF with hospice vs home health with hospice Exam Vital Signs Temp Pulse Resp BP Pulse Ox O2 Del Method O2 Flow Rate 97.3 F 108 H 18 174/79 H 95 Room Air 2 09/22/24 08:00 09/22/24 08:00 09/22/24 08:00 09/22/24 08:00 09/22/24 08:00 09/22/24 08:00 09/22/24 04:00 Narrative Exam Constitutional Alert, oriented x 0 and comfortable. Elderly male HEENT Vision grossly intact. Patent nares. Trachea midline Respiratory Chest normal on inspection and clear auscultation bilaterally Cardiovascular S1 and S2 audible, RRR. No murmurs carotid bruit. No gross JVD. Abdominal Soft and non tender to palpation in all quadrants. BS + Genitourinary No bladder tenderness, no flank pain. Normal to palpation. Urinary Catheter insitu Musculoskeletal Extremities tone within normal limits. No LE edema. Neurological CN II - XII grossly intact. Extremity motor and sensation grossly intact. Skin Dry cracked skin on feet with ulcers in varying stages of healing Objective Labs 09/22/24 09:10 09/20/24 12:35 Labs: Laboratory Results - last 24 hr 09/22/24 09:10 WBC 17.4 H D RBC 2.49 L Hgb 8.0 L Hct 23.8 L MCV 96 MCH 32.1 MCHC 33.6 RDW Std Deviation 49.7 H Plt Count 117 L D Neut % (Auto) 90 H Lymph % (Auto) 3 L Delta % (Auto) 3 Eos % (Auto) 2 Baso % (Auto) 0 Neut # (Auto) 15.7 H Lymph # (Auto) 0.5 L Delta # (Auto) 0.5 Eos # (Auto) 0.4 Baso # (Auto) 0.1 Immature Gran # (Auto) 0.27 H Absolute Nucleated RBC 0.00 Immature Gran % 2 H Nucleated RBC % 0 ABG Interpretation ABG results: 09/20/24 09:50 VBG pH 7.41 VBG pCO2 25 L VBG pO2 52 VBG Base Excess -8 L Quality Measures Quality Measures VTE prophylaxis Advance care planning discussed with:: sibling (Lucila) Assessment & Plan Assessment Current Active Medications: Generic Name Dose Route Start Last Admin Trade Name Freq PRN Reason Stop Dose Admin Artificial Tears 1 drop 09/20/24 14:13 Artificial Tears 225 Drop/15 Ml Btl BOTH EYES 10/20/24 14:12 Q4HR PRN Dry eyes Levofloxacin/Dextrose 500 mg in 100 mls @ 100 mls/hr 09/21/24 21:00 09/21/24 20:11 Levaquin Ivpb IV 09/28/24 20:59 100 mls/hr Q48HR@2100 DOMENICO Administration Lorazepam 1 mg 09/20/24 17:40 09/22/24 08:00 Lorazepam 2 Mg/Ml Vial IVP 09/25/24 17:39 1 mg Q6HR PRN Administration Anxiety or agitation Melatonin 3 mg 09/20/24 21:00 09/21/24 20:23 Melatonin 3 Mg Tablet PO 10/20/24 20:59 Not Given HS [facility] Morphine Sulfate 2 mg 09/21/24 16:03 Morphine Sulf Inj 10 Mg/Ml Vial IVP 09/26/24 11:59 Q2HR PRN pain Ondansetron HCl 4 mg 09/20/24 14:13 Ondansetron Odt 4 Mg Tabrap PO 10/20/24 14:12 Q6HR PRN Vomiting Quetiapine Fumarate 25 mg 09/21/24 21:00 09/21/24 20:23 Quetiapine Fumarate 25 Mg Tablet PO 10/21/24 20:59 Not Given HS [facility] Plan Patient has dementia at baseline. Majority of history obtained from chart review. Patient is an 84-year-old male with a past medical history significant for essential hypertension, CKD stage V, BPH, dementia and chronic normocytic anemia. Patient was brought in by ambulance today from [facility] facility due to chief complaint of removing his Franco catheter and subsequent hematuria. Upon questioning patient uncertain of why he was brought into the hospital. Patient will be admitted to the floor for workup and management of sepsis secondary to UTI. Nephrology was consulted for CKD stage V. 1. Sepsis secondary to UTI 2. Lactic acidosis 3. None anion gap metabolic acidosis 4. Possible perineal cellulitis 5. CKD stage V 6. Chronic normocytic anemia 7. BPH 8. Dementia 9. Essential hypertension 10. Small bowel obstruction Patient is A&O x 0 and is unable to give consult for dialysis or any other procedures. His sister, Lucila Hernandez was contacted at [phone]. She was updated on patient's clinical status including sepsis secondary to UTI, CKD stage V requiring dialysis as well as small bowel obstruction. He has no other family or advanced directives and his sister made the decision to switch him from full code to DNR with comfort measures. Urine culture significant for citrobacter braakii sensitive to levofloxacin Patient seen staring and has spontaneous movements and respirations, does not follow commands Seen clutching suprapubic area intermittently and trying to pull out Catheter Clamp urinary catheter and attempt to discontinue today. Continue Levofloxacin 500mg IV [id number] freezing room worker to liaise with sister Lucila re: SNF with hospice vs home health with hospice Plan: ? Comfort measures - CBC ? Morphine 2 Mg IV Q 2hrly as needed - 1 dose Levofloxacin 500mg IV q 48hrly started on [09/21 - Health maintenance: Disposition: Comfort measures and IV antibiotics Diet: Regular Lines: pIVs GI Prophylaxis: None Thrombo Prophylaxis: None Code status: DNR Plan of care discussed with Attending Dr. Sinha and PGY2 Dr. Charissa Nguyễn MD PGY 1 Attending Provider Attestation/Addendum I, Bushra Sinha DO, attest that I was physically present for the fregoso portions of the service and evaluated the patient with the resident and I reviewed and discussed the case with the resident and agree with the resident's findings and plans of care as documented above Patient seen and evaluated this AM. He remains A&Ox1. Patient continues to attempt to remove franco catheter, but denies any discomfort from catheter. He is otherwise calm and redirectable. He denies any abdominal pain. Pending placement. Will attempt to remove franco as there is no documented urinary retention.
[2024-09-23] VITALS (8 sets, daily range): BP systolic 136–156; BP diastolic 48–88; PULSE 76–101; RESP 16–99; TEMP 36.1–36.3; O2SAT 95–100; BMI 24.8
--- NOTE | 2024-09-23 08:33 | PC.SS ---
Addendum entered by Sonia Almeida [facility] 09/23/24 16:22: SS update: sent updated SNF referral with PT note via [facility]. Addendum entered by Sonia Almeida [facility] 09/23/24 14:17: Rounding note: pending PT evaluation. Addendum entered by Sonia Almeida [facility] 09/23/24 10:03: Contacted Shira financial counselor to reach out to patient's sister Lucila to assist with applying for medi-rudy for the patient. Addendum entered by Sonia Almeida [facility] 09/23/24 09:43: Kassie from PT informs, they would need consent from patient's sister to work on PT eval with the patient as he is currently on comfort measures. Updated Dr. Carrington to make aware and obtain consent. Addendum entered by Sonia Almeida [facility] 09/23/24 09:33: Spoke with Dr. Carrington to order PT eval for the patient to evaluate need for PT for SNF. Addendum entered by Sonia Almeida [facility] 09/23/24 08:59: Spoke with patient's sister, Lucila Hernandez . Updated her on patient's current status with placement. Lucila informs she is unable to take the patient home. Original Note: SS follow up: contacted Fidelina at [facility], to follow up on response. Fidelina indicates at this time they have no bed available. Fidelina informs they may have a bed opening up on 09/26/24, however it is not confirmed whether they will accept the patient.
--- NOTE | 2024-09-23 09:15 | ESPR_ITS ---
<Statement entered by David Carrington MD - 09/23/24 14:32> Patient was seen and examined at the bedside. Patient was talking to himself and was delirious. pit crew support worker, Sonia has been working on SNF placement and PT was consulted for further workup. We are continuing Haldol and morphine pushes for now. Erythromycin eyedrops were added for patient's left eye redness. Patient has not been eating or drinking enough although family also given the bedside. Will likely try to place him in possible SNF to continue comfort care. All labs and orders were reviewed. I saw and examined the patient, and I agree with current management stated by Dr Gopi MD,PGY1. Plan of care was discussed with the attending physician and resident physician. Disclaimer: Despite multiple revisions, due to the dictation software being used, the document bellow may not be free of grammatical errors including phonetic/typographic errors. However, this does not deter from our commitment to providing health care in the patient's best interest in mind. Dr. Charissa MD, PGY 2 Documentation for date of: 09/23/24 Subjective Subjective Interval history: Patient seen and examined at bedside. Patient seen staring and has spontaneous movements and respirations, does not follow commands Spoke with patient's sister, Lucila Hernandez at [phone]. Informed her that for SNF placement Travis needs a physical therapy evaluation and her consent is necessary. She provided her consent. Exam Vital Signs Temp Pulse Resp BP Pulse Ox O2 Del Method O2 Flow Rate 97.4 F 101 H 16 153/48 H 100 Room Air 2 09/23/24 07:38 09/23/24 07:38 09/23/24 07:38 09/23/24 07:38 09/23/24 07:38 09/23/24 07:38 09/22/24 11:55 Narrative Exam Constitutional Alert, oriented x 0 and comfortable. Elderly male HEENT Vision grossly intact. Patent nares. Trachea midline Respiratory Chest normal on inspection and clear auscultation bilaterally Cardiovascular S1 and S2 audible, RRR. No murmurs carotid bruit. No gross JVD. Abdominal Soft and non tender to palpation in all quadrants. BS + Genitourinary No bladder tenderness, no flank pain. Normal to palpation. Urinary Catheter insitu Musculoskeletal Extremities tone within normal limits. No LE edema. Neurological CN II - XII grossly intact. Extremity motor and sensation grossly intact. Skin Dry cracked skin on feet with ulcers in varying stages of healing Objective Labs 09/22/24 09:10 09/20/24 12:35 Labs: Laboratory Results - last 24 hr 09/22/24 09:10 WBC 17.4 H D RBC 2.49 L Hgb 8.0 L Hct 23.8 L MCV 96 MCH 32.1 MCHC 33.6 RDW Std Deviation 49.7 H Plt Count 117 L D Neut % (Auto) 90 H Lymph % (Auto) 3 L Nolan % (Auto) 3 Eos % (Auto) 2 Baso % (Auto) 0 Neut # (Auto) 15.7 H Lymph # (Auto) 0.5 L Nolan # (Auto) 0.5 Eos # (Auto) 0.4 Baso # (Auto) 0.1 Immature Gran # (Auto) 0.27 H Absolute Nucleated RBC 0.00 Immature Gran % 2 H Nucleated RBC % 0 ABG Interpretation ABG results: 09/20/24 09:50 VBG pH 7.41 VBG pCO2 25 L VBG pO2 52 VBG Base Excess -8 L Quality Measures Quality Measures VTE prophylaxis Advance care planning discussed with:: sibling (Lucila Hernandez) Assessment & Plan Assessment Current Active Medications: Generic Name Dose Route Start Last Admin Trade Name Freq PRN Reason Stop Dose Admin Artificial Tears 1 drop 09/20/24 14:13 Artificial Tears 225 Drop/15 Ml Btl BOTH EYES 10/20/24 14:12 Q4HR PRN Dry eyes Haloperidol Lactate 2.5 mg 09/22/24 17:22 Haloperidol Lact Inj 5 Mg/Ml Vial IV 09/27/24 17:21 Q6HR PRN AGITATION OR ANXIETY Levofloxacin/Dextrose 500 mg in 100 mls @ 100 mls/hr 09/21/24 21:00 09/21/24 20:11 Levaquin Ivpb IV 09/28/24 20:59 100 mls/hr Q48HR@2100 DOMENICO Administration Lorazepam 1 mg 09/20/24 17:40 09/22/24 08:00 Lorazepam 2 Mg/Ml Vial IVP 09/25/24 17:39 1 mg Q6HR PRN Administration Anxiety or agitation Melatonin 3 mg 09/20/24 21:00 09/22/24 20:45 Melatonin 3 Mg Tablet PO 10/20/24 20:59 Not Given HS [facility] Morphine Sulfate 2 mg 09/21/24 16:03 Morphine Sulf Inj 10 Mg/Ml Vial IVP 09/26/24 11:59 Q2HR PRN pain Ondansetron HCl 4 mg 09/20/24 14:13 Ondansetron Odt 4 Mg Tabrap PO 10/20/24 14:12 Q6HR PRN Vomiting Quetiapine Fumarate 25 mg 09/21/24 21:00 09/22/24 20:45 Quetiapine Fumarate 25 Mg Tablet PO 10/21/24 20:59 Not Given HS [facility] Plan Patient has dementia at baseline. Majority of history obtained from chart review. Patient is an 84-year-old male with a past medical history significant for essential hypertension, CKD stage V, BPH, dementia and chronic normocytic anemia. Patient was brought in by ambulance today from [place] acute re[facility] facility due to chief complaint of removing his Stephens catheter and subsequent hematuria. Upon questioning patient uncertain of why he was brought into the hospital. Patient will be admitted to the floor for workup and management of sepsis secondary to UTI. Nephrology was consulted for CKD stage V. 1. Sepsis secondary to UTI 2. Lactic acidosis 3. None anion gap metabolic acidosis 4. Possible perineal cellulitis 5. CKD stage V 6. Chronic normocytic anemia 7. BPH 8. Dementia 9. Essential hypertension 10. Small bowel obstruction Patient is A&O x 0 and is unable to give consult for dialysis or any other procedures. His sister, Lucila Hernandez was contacted at [phone]. She was updated on patient's clinical status including sepsis secondary to UTI, CKD stage V requiring dialysis as well as small bowel obstruction. He has no other family or advanced directives and his sister made the decision to switch him from full code to DNR with comfort measures. Urine culture significant for citrobacter braakii sensitive to levofloxacin Spoke with patient's sister, Lucila Hernandez at [phone]. Informed her that for SNF placement Travis needs a physical therapy evaluation and her consent is necessary. She provided her consent. Plan: ? Comfort measures - CBC ? Morphine 2 Mg IV Q 2hrly as needed - 2 doses Levofloxacin 500mg IV q 48hrly started on [09/21 - Health maintenance: Disposition: Comfort measures and IV antibiotics. PT eval for SNF Diet: Regular Lines: pIVs GI Prophylaxis: None Thrombo Prophylaxis: None Code status: DNR Plan of care discussed with Attending Dr. Sinha and PGY2 Dr. Charissa Nguyễn MD PGY 1 Attending Provider Attestation/Addendum Bushra Zaldivar DO, attest that I was physically present for the fregoso portions of the service and evaluated the patient with the resident and I reviewed and discussed the case with the resident and agree with the resident's findings and plans of care as documented above Patient seen and eval this a.m. He remains confused. He has no active complaints. Per nursing, patient does not want to eat. Will need a physical therapy evaluation per social service worker to determine skilled need. Pending placement at this time. No acute events overnight otherwise.
[2024-09-23] MEDS: TOBRAMYCIN OP SOL 0.3% 5 ML BTL BOTH EYES ×2 (12:44→17:57)
--- NOTE | 2024-09-23 13:49 | CHAP ---
10:30 AM Visited by spiritual care volunteer Provided prayer for Patient.
[2024-09-23] MEDS: MORPHINE SULF INJ 10 MG/ML VIAL 2 MG IVP (14:21)
[2024-09-23] MEDS: LEVOFLOXACIN/D5W 500 MG IVPB 500 MG/100 ML BAG 100 MG IV (21:53)
[2024-09-24] VITALS (9 sets, daily range): BP systolic 100–149; BP diastolic 69–90; PULSE 65–92; RESP 16–98; TEMP 36–36.2; O2SAT 96–100; BMI 22.9
--- NOTE | 2024-09-24 08:42 | XR_ITS ---
Examination: Abdomen AP single view Technique: AP portable supine abdomen, single view Exam date and time: September 24, 2024 0900 hours INDICATIONS: Abdominal pain and distention this week FINDINGS: Air distended colon and small bowel No free air Heavy soft tissue vascular calcification Moderate bilateral hip osteoarthritis IMPRESSION: Significant colonic and small bowel probable ileus pattern but clinical correlation advised, please see the CT chest report September 20, 2024 Consider Gastrografin small bowel series follow-up
--- NOTE | 2024-09-24 09:23 | ESPR_ITS ---
<Statement entered by Lisa Huber MD - 09/24/24 18:22> I discussed with and supervised my co-resident involved in the care of this patient. I agree with the assessment and plan as documented above. Patient seen and evaluated at bedside. He is doing really well this morning, is awake, alert, and orientated to name, place. He does not remember why he is here. His abdomen is distended and tympanic so we ordered a KUB which showed lots of bowel distention. Will trial Movantik and a bowel regimen for him to pass stool and gas. He worked with PT. We are pending snf placement for him. Lisa Huber MD PGY-3 Documentation for date of: 09/24/24 Subjective Subjective Interval history: Patient was seen and examined at bedside this AM. No acute exents overnight. Patient tolerating diet, adequate urine output and mentation is improved This a.m. patient is alert and oriented x 2 [person and place] He is uncertain of why he is in the hospital and not complaining of any pain at the moment. Of note his last bowel movement was 2 days ago and patient uncertain if he is passing any flatus. Also denied any vomiting Upon exam abdomen severely distended and tense, bowel sounds sluggish to decreased. KUB XR stat ordered. Exam Vital Signs Temp Pulse Resp BP Pulse Ox O2 Del Method O2 Flow Rate 96.8 F 85 20 148/83 H 98 Room Air 2 09/24/24 08:00 09/24/24 08:42 09/24/24 08:42 09/24/24 08:00 09/24/24 08:00 09/24/24 08:00 09/22/24 11:55 Narrative Exam Constitutional Alert, oriented x 2 [ Person and Place] and comfortable. Elderly male HEENT Vision grossly intact. Patent nares. Trachea midline Respiratory Chest normal on inspection and clear auscultation bilaterally Cardiovascular S1 and S2 audible, RRR. No murmurs carotid bruit. No gross JVD. Abdominal Tense, distended and non tender to palpation in all quadrants. Sluggish to absent bowel sounds Genitourinary No bladder tenderness, no flank pain. Normal to palpation Musculoskeletal Extremities tone within normal limits. No LE edema. Neurological CN II - XII grossly intact. Extremity motor and sensation grossly intact. Skin Dry cracked skin on feet with ulcers in varying stages of healing Psychiatric Patient has good affect, is cooperative Objective Labs 09/22/24 09:10 09/20/24 12:35 ABG Interpretation ABG results: 09/20/24 09:50 VBG pH 7.41 VBG pCO2 25 L VBG pO2 52 VBG Base Excess -8 L Quality Measures Quality Measures VTE prophylaxis Advance care planning discussed with:: sibling (Sister- Lucila Hernandez) Assessment & Plan Assessment Current Active Medications: Generic Name Dose Route Start Last Admin Trade Name Freq PRN Reason Stop Dose Admin Artificial Tears 1 drop 09/20/24 14:13 Artificial Tears 225 Drop/15 Ml Btl BOTH EYES 10/20/24 14:12 Q4HR PRN Dry eyes Haloperidol Lactate 2.5 mg 09/22/24 17:22 Haloperidol Lact Inj 5 Mg/Ml Vial IV 09/27/24 17:21 Q6HR PRN AGITATION OR ANXIETY Protocol Levofloxacin/Dextrose 500 mg in 100 mls @ 100 mls/hr 09/21/24 21:00 09/23/24 21:53 Levaquin Ivpb IV 09/28/24 20:59 100 mls/hr Q48HR@2100 DOMENICO Administration Lorazepam 1 mg 09/20/24 17:40 09/22/24 08:00 Lorazepam 2 Mg/Ml Vial IVP 09/28/24 17:39 1 mg Q6HR PRN Administration Anxiety or agitation Protocol Melatonin 3 mg 09/20/24 21:00 09/23/24 21:53 Melatonin 3 Mg Tablet PO 10/20/24 20:59 Not Given HS DOMENICO Morphine Sulfate 2 mg 09/21/24 16:03 09/23/24 14:21 Morphine Sulf Inj 10 Mg/Ml Vial IVP 09/26/24 11:59 2 mg Q2HR PRN Administration pain Ondansetron HCl 4 mg 09/20/24 14:13 Ondansetron Odt 4 Mg Tabrap PO 10/20/24 14:12 Q6HR PRN Vomiting Quetiapine Fumarate 25 mg 09/21/24 21:00 09/23/24 21:53 Quetiapine Fumarate 25 Mg Tablet PO 10/21/24 20:59 Not Given HS DOMENICO Tobramycin Sulfate 0 drop 09/23/24 12:00 09/24/24 06:23 Tobramycin Op Lucila 0.3% 5 Ml Btl BOTH EYES 09/25/24 11:59 Not Given QID DOMENICO Plan Patient has dementia at baseline. Majority of history obtained from chart review. Patient is an 84-year-old male with a past medical history significant for essential hypertension, CKD stage V, BPH, dementia and chronic normocytic anemia. Patient was brought in by ambulance today from [place] [facility] facility due to chief complaint of removing his Stephens catheter and subsequent hematuria. Upon questioning patient uncertain of why he was brought into the hospital. Patient will be admitted to the floor for workup and management of sepsis secondary to UTI. Nephrology was consulted for CKD stage V. 1. Sepsis secondary to UTI - resolving 2. Lactic acidosis 3. Non anion gap metabolic acidosis 4. Possible perineal cellulitis 5. CKD stage V requiring dialysis 6. Chronic normocytic anemia 7. BPH 8. Dementia 9. Essential hypertension 10. Small bowel obstruction - resolved Patient is A&O x 0 and is unable to give consult for dialysis or any other procedures. His sister, Lucila Hernandez was contacted at [phone]. She was updated on patient's clinical status including sepsis secondary to UTI, CKD stage V requiring dialysis as well as small bowel obstruction. He has no other family or advanced directives and his sister made the decision to switch him from full code to DNR with comfort measures. Urine culture significant for citrobacter braakii sensitive to levofloxacin Spoke with patient's sister, Lucila Hernandez at [phone]. Informed her that for SNF placement Travis needs a physical therapy evaluation and her consent is necessary. She provided her consent. Plan: ? Comfort measures - CBC ? Morphine 2 Mg IV Q 2hrly as needed - 2 doses Levofloxacin 500mg IV q 48hrly started on [09/21 - 11. Abdonimal Distension 12. Small bowel and colonic ileus Patient not complaining of any pain or vomiting. Last bowel movement 2 days ago On exam patient had tense,distended abdomen. Sluggish to absent bowel sounds DDx : SBO, Ileus, gastroparesis KUB x-ray significant for colonic and small bowel ileus pattern Plan: - KUB XR stat ? Encourage movement with PT ? Milk of magnesia x 1 ? MiraLAX 1 packet/day scheduled from tomorrow Health maintenance: Disposition: Comfort measures and IV antibiotics. Pending SNF auth. Bowel regimen Diet: Regular Lines: pIVs GI Prophylaxis: None Thrombo Prophylaxis: None Code status: DNR Plan of care discussed with Attending Dr. Sinha and PGY3 Dr. Mayo Nguyễn MD PGY 1 Attending Provider Attestation/Addendum Bushra Zaldivar DO, attest that I was physically present for the fregoso portions of the service and evaluated the patient with the resident and I reviewed and discussed the case with the resident and agree with the resident's findings and plans of care as documented above Pt seen and evaluated this AM. He is much more alert today and complaining of thirst. Abdomen appears distended and tympanic. Patient states he feels as though he needs to have a BM. He has otherwise been tolerating diet. KUB shows evidence of ileus. Patient is otherwise comfortable. Pending placement.
[2024-09-24] MEDS: Milk Of Magnesia Susp 30 ML UDC PO (10:53)
[2024-09-24] MEDS: TOBRAMYCIN OP SOL 0.3% 5 ML BTL BOTH EYES ×3 (11:01→21:23)
--- NOTE | 2024-09-24 11:13 | PC.SS ---
SS update: spoke with Nina at [facility]. Informs she will send clinicals to patient's insurance to review to determine if they will give authorization for placement.
[2024-09-24] MEDS: MELATONIN 3 MG TABLET PO (21:23)
[2024-09-24] MEDS: QUEtiapine FUMARATE 25 MG TABLET PO (21:23)
[2024-09-25] VITALS (10 sets, daily range): BP systolic 67–132; BP diastolic 37–84; PULSE 57–86; RESP 16–97; TEMP 36–36.5; O2SAT 94–98
[2024-09-25] MEDS: TOBRAMYCIN OP SOL 0.3% 5 ML BTL BOTH EYES (05:58)
[2024-09-25] MEDS: SENNA TABLET 1 TAB PO (10:07)
[2024-09-25] MEDS: POLYETHYLENE GLYCOL 17 GM PACKET PO (10:07)
--- NOTE | 2024-09-25 13:26 | PD.RESPRO ---
Documentation for date of: 09/25/24 Subjective Subjective Interval history: Patient seen and examined at bedside. No acute problems overnight. Patient awake, alert, coherent. States his belly is full and did not have bowl movement. No other complaints at this time. Exam Vital Signs Temp Pulse Resp BP Pulse Ox O2 Del Method O2 Flow Rate 96.8 F 78 18 105/70 98 Room Air 2 09/25/24 12:00 09/25/24 12:00 09/25/24 12:00 09/25/24 12:09/25/24 12:00 09/25/24 12:00 09/22/24 11:55 Narrative Exam Constitutional: NAD. Awake, alert. HEENT: NCAT. Vision grossly intact. Mild subconjunctival hemorrhage. Respiratory: CTAB bilaterally. Cardiac: RRR. Abdomen: Soft, distended, tympanic. MSK: No B/L LE edema. Skin: Warm, dry, intact. No obvious lesions. Neuro: Motor and sensation grossly intact. Objective Labs 09/22/24 09:10 09/20/24 12:35 ABG Interpretation ABG results: 09/20/24 09:50 VBG pH 7.41 VBG pCO2 25 L VBG pO2 52 VBG Base Excess -8 L Quality Measures Quality Measures VTE prophylaxis Advance care planning discussed with:: sibling Assessment & Plan Assessment Current Active Medications: Generic Name Dose Route Start Last Admin Trade Name Freq PRN Reason Stop Dose Admin Artificial Tears 1 drop 09/20/24 14:13 Artificial Tears 225 Drop/15 Ml Btl BOTH EYES 10/20/24 14:12 Q4HR PRN Dry eyes Haloperidol Lactate 2.5 mg 09/22/24 17:22 Haloperidol Lact Inj 5 Mg/Ml Vial IV 09/27/24 17:21 Q6HR PRN AGITATION OR ANXIETY Protocol Levofloxacin/Dextrose 500 mg in 100 mls @ 100 mls/hr 09/21/24 21:00 09/23/24 21:53 Levaquin Ivpb IV 09/28/24 20:59 100 mls/hr Q48HR@2100 DOMENICO Administration Lorazepam 1 mg 09/20/24 17:40 09/22/24 08:00 Lorazepam 2 Mg/Ml Vial IVP 09/28/24 17:39 1 mg Q6HR PRN Administration Anxiety or agitation Protocol Melatonin 3 mg 09/20/24 21:00 09/24/24 21:23 Melatonin 3 Mg Tablet PO 10/20/24 20:59 3 mg HS DOMENICO Administration Ondansetron HCl 4 mg 09/20/24 14:13 Ondansetron Odt 4 Mg Tabrap PO 10/20/24 14:12 Q6HR PRN Vomiting Polyethylene Glycol 17 gm 09/25/24 09:00 09/25/24 10:07 Polyethylene Glycol 17 Gm Packet PO 10/25/24 08:59 17 gm QDAY DOMENICO Administration Quetiapine Fumarate 25 mg 09/21/24 21:00 09/24/24 21:23 Quetiapine Fumarate 25 Mg Tablet PO 10/21/24 20:59 25 mg HS DOMENICO Administration Sennosides 2 tab 09/26/24 09:00 Senna Tablet PO 10/26/24 08:59 QDAY DOMENICO Protocol Plan Patient is an 84-year-old male with a past medical history significant for dementia, essential hypertension, CKD stage V, BPH, dementia and chronic normocytic anemia who presents from SNF after removing his Stephens catheter with subsequent hematuria. He was admitted for sepsis secondary to UTI. During his hospital stay, patient was confused. Goals of care discussion was done with the family who, per patient wishes, did not decide to pursue dialysis for his CKD5, and change code status from DNR to comfort measures. Patient is pending placement, and patient's sister gave consent for PT evaluation to pursue SNF placement. 1. Sepsis secondary to citrobacter braaki UTI 2. Lactic acidosis, resolved 3. Non anion gap metabolic acidosis, resolved 4. Possible perineal cellulitis 5. CKD stage V requiring dialysis 6. Chronic normocytic anemia 7. BPH 8. Dementia 9. Essential hypertension 10. Abdominal Distension secondary to ileus 11. Acute on chronic encephalopathy, metabolic versus toxic, improving Plan - Levofloxacin 500mg IV q 48hrly started on [09/21 - 09/28 ] - Continue comfort care measures - Bowel regimen: senna, docusate, Miralax. If does not improve, consider GoLytely. Avoiding Milk of Mag due to CKD. Health maintenance: Disposition: Comfort measures and IV antibiotics. Pending SNF auth. Bowel regimen Diet: Regular Lines: PIV GI Prophylaxis: None Thrombo Prophylaxis: SCD Code status: DNR I have reviewed and discussed the patient's care with my attending, Dr. Susy Huber MD PGY-3 Attending Provider Attestation/Addendum I have discussed and was present for the essential components of the history, physical examination, diagnosis, and treatment plan with the resident. I agree with the patient's care as documented by the resident and amended herein by me. Russell Jain, DO. No acute events overnight, vital signs stable, patient afebrile, WBC downtrending to 17 today, platelets did dip to 117, hemoglobin stable at 8. Patient's abdomen is distended, slight tender to palpation however no rebound tenderness. Abdominal x-ray yesterday demonstrated possible ileus. Blood cultures negative thus far, urine cultures demonstrating MDR Citrobacter, will continue Levaquin for now. Bowel regimen on board, once the patient's abdomen improves and the patient has improved BMs, can be discharged. Although this document has been carefully reviewed, there may still be some phonetic and other typographical errors. These errors are purely grammatical due to imperfections in the software program and should not be construed in any way to compromise the substance of the patient's medical care during this visit.
[2024-09-25] MEDS: ONDANSETRON ODT 4 MG TABRAP PO ×2 (13:47→19:36)
[2024-09-25] MEDS: BISMUTH SUBSALICYL 1 TABLET (Pepto-Bismol) 1 TAB PO (15:40)
--- NOTE | 2024-09-25 21:11 | PC.RT ---
Responded to MILL RECORDER at 20:50, pt found on a 2L nc with RR22, hr 84, spo2 100%, RT dc at 21:09 DR. Faulkner remains at bedside with DR. Balderas.
--- NOTE | 2024-09-25 21:20 | PD.RESEVENT ---
Documentation for date of: 09/25/24 Event Note Event Note: Rapid response called around 8:50 PM for patient at 375 secondary to hypotension with blood pressure of 67/37 on 2 L satting 93 with a heart rate of 84. Patient airway, breathing and circulation assessed and the patient was able to protect his airway; however, noted to have distended abdomen with tenderness to palpation diffusely. Per nursing, patient's comfort measures orders have been canceled during dayshift; moreover, there were no labs to assess patient's electrolytes. Ordered a set of labs including CBC and CMP, KUB and a bladder scan which showed roughly 75 mL of urine. Upon changing bed settings (legs raise) blood pressure did improve to a MAP of 70; however, upon recheck dropped back to blood pressure 75/37. At that point, decision was made to give the patient 500 cc of IV normal saline and recheck blood pressure. Will follow-up on KUB results and if blood pressure still low will additionally order another 500 cc IV fluids. Patient's CODE STATUS remains DNR. Spoke with patient's sister, Lucila Hernandez. Updated her regarding the patient's status and low blood pressure. Sister explained that she would like her brother not to suffer and refused any invasive treatments for the low blood pressure. She reiterated her stance that she would like the patient not to suffer. Virgilio Balderas, PGY-1 Severe constipation , but also could be ileus vs sbo plan was for ng placement, npo, iv fluids, small bowel series- after bowel regimen Family wants comfort measures, apparently that was also the plan during the day. Patient is DNR , comfort measures - if requires frequent PRN opioids then can be placed on morphine drip.
[2024-09-25] MEDS: SODIUM CHLORIDE 0.9% 500 ML 500 ML 999 ML IV ×2 (21:24→22:08)
--- NOTE | 2024-09-25 21:26 | XR_ITS ---
Examination: Abdomen AP single view Technique: AP portable supine abdomen, single view Exam date and time: September 25, 2024 0940 hrs. Comparison September 24, 2024 Indications: Abdominal pain and distention today Findings: Again noted air distended small bowel loops as well as air distended colon No free air Significant osteopenia Impression: Again noted air distended small bowel loops colonic loops, consider prominent ileus, small bowel obstruction not excluded Consider Gastrografin small bowel series follow-up
[2024-09-25] MEDS: LEVOFLOXACIN/D5W 500 MG IVPB 500 MG/100 ML BAG 100 MG IV (21:39)
[2024-09-25] MEDS: QUEtiapine FUMARATE 25 MG TABLET PO (21:39)
[2024-09-25] MEDS: ONDANSETRON INJ 2 MG/ML INJ 2 ML 4 MG IV (21:39)
[2024-09-25] MEDS: MELATONIN 3 MG TABLET PO (21:40)
[2024-09-25] MEDS: SENNA TABLET 2 TAB PO (21:40)
[2024-09-25 21:58] LABS: Lactate (Lactic Acid) 1.8 mMol/L (0.4-2.0)
[2024-09-25 22:02] LABS: Basophils % (Auto) 1 % (0-2.5); Eosinophils # (Auto) 0.1 Thou/mm3 (0.0-0.5); Mean Corpuscular Volume 96 fL (80-100); Monocytes # (Auto) 0.5 Thou/mm3 (0.0-0.8); Nucleated Red Blood Cell % 0 /100 WBC (0)
[2024-09-25 22:04] LABS: Eosinophils % (Auto) 2 % (0-10); Hematocrit 30.3 % (41.0-53.0); Hemoglobin 10.1 g/dL (13.5-16.0); Immature Granulocytes % (Auto) 1 % (0-0); Immature Granulocytes Auto 0.03 Thou/mm3 (0.00-0.00); Lymphocytes # (Auto) 0.8 Thou/mm3 (1.0-4.8); Lymphocytes % (Auto) 16 % (10-50); Mean Corpuscular HGB Conc 33.3 g/dl (31.0-37.0); Mean Corpuscular Hemoglobin 31.9 pg (25.0-35.0); Monocytes % (Auto) 9 % (0-12); Neutrophils # (Auto) 3.5 Thou/mm3 (1.8-7.7); Neutrophils % (Auto) 72 % (37-80); RDW Standard Deviation 50.4 fL (35.1-43.9); Red Blood Count 3.17 Miln/mm3 (4.50-5.90); White Blood Count 4.9 Thou/mm3 (3.8-10.6)
[2024-09-25 22:05] LABS: Platelet Count 70 Thou/mm3 (140-440)
[2024-09-25 22:06] LABS: Slide Review Platelets confirmed
[2024-09-25 22:24] LABS: Alanine Aminotransferase 17 U/L (10-49); Albumin/Globulin Ratio 1.5 (1.2-2.2); Alkaline Phosphatase 171 U/L (46-116); Anion Gap 17 (7-16); Aspartate Amino Transferase 15 U/L (0-34); BUN/Creatinine Ratio 20 Ratio (12-20); Bilirubin,Total 0.3 mg/dL (0.3-1.2); Blood Urea Nitrogen 91 mg/dL (9-23); Calcium 9.6 mg/dL (8.3-10.6); Calcium (Corrected) 10.4 mg/dL (8.5-10.1); Carbon Dioxide 16.6 mMol/L (20.0-31.0); Chloride 111 mMol/L (98-107); Creatinine (Component) 4.6 mg/dL (0.6-1.3); Estimated Creatinine Clearance 9.3 mL/min (>60); Glucose 87 mg/dL (74-106); Osmolality,Calculated 315 (275-295); Potassium 4.3 mMol/L (3.4-5.1); Sodium 145 mMol/L (136-145); eGFR 12 See Note
--- NOTE | 2024-09-25 23:28 | XR_ITS ---
Examination: AP chest single view Technique one AP portable upright chest single view Exam date and time: September 25, 2024 1159 hrs. Comparison September 19, 2024 Indications: Post orogastric tube placement. Findings: Mild heart failure Moderate enlargement cardiac contour with prominent vascular congestion and perihilar edema Orogastric tube tip projects above the GE junction and the orogastric tube is coiled in the oropharynx Impression: Retract the orogastric tube completely and reinsert
[2024-09-26] VITALS: BP 91/51; PULSE 92; RESP 22; TEMP 36.6; O2SAT 100
[2024-09-26 00:45] VITALS: BP 60/37
--- NOTE | 2024-09-26 01:01 | XR_ITS ---
Examination: AP chest single view Technique one AP portable semiupright chest single view Exam date and time: September 26, 2024 0133 hrs. Comparison September 25, 2024 Indications: Post orogastric tube placement Findings: The orogastric tube is coiled in almost the entire length of the esophagus Again noted heart failure, currently moderate, moderate enlargement cardiac contour prominent vascular congestion, perihilar edema Impression: Recommend removing the orogastric tube completely and reinserting
--- NOTE | 2024-09-26 01:30 | PC.NURSE ---
Rapid response called around 2050 on 09/25/24 for soft BP of 67/37; patient also very nauseous and vomiting. Upon assessment, patient's abdomen also found to be distended. IVF boluses, labs, KUB and senna ordered. Later after MARKING MACHINE OPERATOR, NGT ordered with immediate 900ml of brown and later bloody output. Blood pressures continue to be soft and MDs made aware. Doctor stated they would contact the family to discuss plan of care.
[2024-09-26] MEDS: SODIUM CHLORIDE 0.9% 1000 ML 1,000 ML 125 ML IV (01:57)
[2024-09-26] MEDS: SODIUM CHLORIDE 0.9% 500 ML 500 ML 999 ML IV (02:51)
[2024-09-26] MEDS: LORazepam 2 MG/ML VIAL 1 MG IVP (03:21)
[2024-09-26 04:00] VITALS: BP 98/53; PULSE 91; RESP 16; TEMP 36.1; O2SAT 100
--- NOTE | 2024-09-26 05:11 | PD.DPN ---
Documentation for date of: 09/26/24 Pronouncement Note Date and Time of Date of : 09/26/24 Time of : 04:59 PCOD Preliminary cause of : Cardiopulmonary arrest Summary Additional details: Nurse called to see patient for unresponsiveness. On exam, the patient was unresponsive, no spontaneous movement observed. Patient did not respond to verbal and noxious stimuli. Absent heart and breath sounds for more than 2 minutes. Pupils are fixed and dilated, corneal reflex was absent. Patient pronounced at 04:[address] Ruby notified. Next of kin/family notified. Patient , time of 04:59 AM as mentioned above. Additional Data Confirmation of : no pulse, no respirations, no heart sounds and pupils fixed and dilated Family: contacted Additional persons at bedside: other Attending/PCP notified?: Yes Attending physician: Néstor Ruby MD Was code activated?: No
--- NOTE | 2024-09-26 05:44 | PC.RT ---
RT responded to LIQUID CENTER ASSEMBLER at 20:50 pt on a nasal cannula at 2L hr 84, spo2 100% RR22, RT DC at 21:09
--- NOTE | 2024-09-26 07:07 | PC.NURSE ---
Dr. Faulkner pronounced patient expiration at 0459. Post-mortem care provided. Patient's sister, Lucila, called by Dr. Faulkner regarding patient's expiration and later by this RN to confirm mortuary and to offer prayer, which she seemed to gratefully accept. Josefina avendaño called and finally Sylvia's.
--- NOTE | 2024-09-26 07:22 | DES_ITS ---
<Statement entered by David Carrington MD - 09/26/24 08:25> Patient was pronounced at 4:59 AM by night resident. Family was notified and patient was on comfort care when he . Attending physician was also notified. Agree with resident physician, Dr. Gopi WALKER, PGY-1 Disclaimer: Despite multiple revisions, due to the dictation software being used, the document bellow may not be free of grammatical errors including phonetic/typographic errors. However, this does not deter from our commitment to providing health care in the patient's best interest in mind. Dr. Charissa MD, PGY 2 Documentation for date of: 09/26/24 Summary Date and Time Date of admission: 09/19/24 16:10 Date of : 09/25/24 Time of : 04:59 Summary Hospital Course: Patient has dementia at baseline. Majority of history obtained from chart review. Patient is an 84-year-old male with a past medical history significant for essential hypertension, CKD stage V, BPH, dementia and chronic normocytic anemia. Patient was brought in by ambulance today from [facility] due to chief complaint of removing his Stephens catheter and subsequent hematuria. Upon questioning patient uncertain of why he was brought into the hospital. Patient will be admitted to the floor for workup and management of sepsis secondary to UTI. Nephrology was consulted for CKD stage V. During patient's hospitalization discussion was had with his next of kin, Lucila [sister] updating her on his current condition, the decision to switch patient to comfort measures was made. On 09/24/2024 patient was observed to have abdominal distention and KUB x-ray was ordered. This showed small bowel and colonic ileus pattern and ambulation was encouraged as well as MiraLAX to help resolve the ileus. On 09/25/2024 around 8:50 PM patient's became hypotensive, 67/27. Patient was given 500 cc IV fluid bolus. On 09/26/2024 patient was found unresponsive and pronounced at 4:59 AM. Discharge diagnoses: 1. Cardiopulmonary arrest secondary to septic shock 2. Sepsis secondary to citrobacter braaki UTI 3. Lactic acidosis, resolved 4. Non anion gap metabolic acidosis, resolved 5. Possible perineal cellulitis 6. CKD stage V requiring dialysis 7. Chronic normocytic anemia 8. BPH 9. Dementia 10. Essential hypertension 11. Abdominal Distension secondary to ileus 12. Acute on chronic encephalopathy, metabolic versus toxic, improving Lucila MCKEON[sister] was informed of above. Plan of care discussed with Attending Dr. Jain and PGY2 Dr. Charissa Nguyễn MD PGY 1 Additional Data Confirmation of as documented by pronouncing clinician: no pulse, no respirations, no heart sounds and pupils fixed and dilated Family: contacted Attending/PCP notified?: Yes Attending physician: Néstor Ruby MD Was code activated?: No Hospice patient?: No Visit Providers Provider Primary care physician: Regis Griffiths MD Consults: 09/19/24 16:31 Consult to Nephrology Stat Comment: CKD stage 5 Consulting Provider: Herminio Spence 09/19/24 16:39 Referral Wound Care Routine Comment: Dry cracked feet with some healed ulcers 09/19/24 22:45 Referral Nutritional Services Routine Comment: Referral Wound Care Routine Comment: 09/20/24 14:16 Referral [facility] Routine Comment: No family nearby 09/23/24 09:34 PT [Referral Physical Therapy] Urgent Comment: Physician Instructions: Instructions: Patient needs PT eval for SNF placement Diagnosis PCOD Cause of : Cardiopulmonary arrest Discharge Plan Plan Patient Disposition: Prescriptions/Referrals Referrals: Regis Griffiths MD [Primary Care Provider] - Patient/Caregiver Discharge Instructions Print Language: Guatemalan
--- NOTE | 2024-09-26 07:37 | PC.NURSE ---
[facility] here to potato picker remains.
== END 2024-09-26 04:59 | disposition expired | DRG 871 ==
LOC: SERX 15:45 → SERHOLD 16:46 → S3SX 09-20 09:45
PROVIDERS: Internal Medicine; Student in an Organized Health Care Education/Training Program; Admitting Provider Internal Medicine; Emergency Provider Emergency Medicine; PCP Family Medicine; Visit Provider Internal Medicine
DX: A41.59 Other Gram-negative sepsis (principal); R65.21 Severe sepsis with septic shock; I13.2 Hypertensive heart and chronic kidney disease with heart failure and with stage 5 chronic kidney disease, or end stage renal disease; N18.5 Chronic kidney disease, stage 5; L03.315 Cellulitis of perineum; E87.20 Acidosis, unspecified; G93.40 Encephalopathy, unspecified; K56.7 Ileus, unspecified; N17.9 Acute kidney failure, unspecified; I50.32 Chronic diastolic (congestive) heart failure; Z16.24 Resistance to multiple antibiotics; N39.0 Urinary tract infection, site not specified; F03.90 Unspecified dementia, unspecified severity, without behavioral disturbance, psychotic disturbance, mood disturbance, and anxiety; R29.6 Repeated falls; N20.0 Calculus of kidney; N40.0 Benign prostatic hyperplasia without lower urinary tract symptoms; E86.0 Dehydration; N43.3 Hydrocele, unspecified; E04.1 Nontoxic single thyroid nodule; E83.39 Other disorders of phosphorus metabolism; I25.10 Atherosclerotic heart disease of native coronary artery without angina pectoris; H91.90 Unspecified hearing loss, unspecified ear; Z66 Do not resuscitate; E83.42 Hypomagnesemia; E87.6 Hypokalemia; I46.8 Cardiac arrest due to other underlying condition; Z87.891 Personal history of nicotine dependence; Z53.29 Procedure and treatment not carried out because of patient's decision for other reasons; Z95.5 Presence of coronary angioplasty implant and graft; Z51.5 Encounter for palliative care; Z88.8 Allergy status to other drugs, medicaments and biological substances; Z88.0 Allergy status to penicillin; Z88.2 Allergy status to sulfonamides; Z79.899 Other long term (current) drug therapy
CPT/HCPCS: 36415; 70450; 71045; 71250; 74018; 74176; 76870; 80053; 81001; 82140; 82550; 82803; 83605; 83735; 84100; 84145; 84439; 84443; 85014; 85018; 85025; 85610; 85730; 86850; 86900; 86901; 86923; 87040; 87077; 87081; 87086; 87186; 87502; 87811; 93225; 94640; 96361; 96365; 96366; 97162; 99291; A9270; J1200; J1643; J1956; J2060; J2270; J2405; J3370; J3475; J3490; J7030; J7040; J7120; P9016; P9047; Q0162; J1644; J1836